=== PATIENT | female | born 1975 | race Caucasian/White ===

== ENCOUNTER 2016-02-27 14:08 | Inpatient (IN) | payer OTHER ==
[2016-02-27 14:33] VITALS: BMI 24.3
--- NOTE | 2016-02-27 14:38 | HP ---
COWS - Scale Resting Pulse: 0= [place] 80 or Below Sweatin=Flushed/Facial Moisture Restless Observation: 3= Extraneous Movement Pupil Size: 2= Moderately Dilated Bone or Joint Aches: 2= Severe Diffuse Aches Runny Nose/ Eye Tearin= Runny Nose/Eyes GI Upset > 30mins: 3= Vomiting/Diarrhea Tremor Observation: 2= Slight Tremor Visible Yawning Observation: 2= >3x During Session Anxiety or Irritability: 2=Irritable/Anxious Goose Flesh Skin: 0=Smooth Skin COWS Score: 20 Admission ROS BHS - HPI Chief Complaint: i need help to stop using heroin Allergies/Adverse Reactions: Allergies Allergy/AdvReac Type Severity Reaction Status Date / Time haloperidol [From Haldol] AdvReac stiffness Verified 02/27/16 14:33 haloperidol lactate AdvReac stiffness Verified 02/27/16 14:33 [From Haldol] History of Present Illness: this 40 years old female with heroin dependence withdrawal symptom,last detox to 01/24/16 htn non compliance insomnia no significant sobriety nicotine dependence Exam Limitations: No Limitations - Ebola screening Have you traveled outside of the country in the last 21 days: No Have you had contact with anyone from an Ebola affected area: No Have you been sick,other than usual withdrawal symptoms: No Do you have a fever: No - Review of Systems Constitutional: Chills, Diaphoresis, Loss of Appetite, Malaise, Night Sweats, Changes in sleep, Weakness, Unexplained wgt Loss EENT: reports: Tearing, Nose Congestion Respiratory: reports: No Symptoms reported, Other (s/p drainage of abscesss left ) Cardiac: reports: Palpitations GI: reports: Nausea, Vomiting, Abdominal cramping : reports: No Symptoms Reported Musculoskeletal: reports: Back Pain, Joint Pain, Muscle Pain Integumentary: reports: Dryness Neuro: reports: Headache, Tremors Endocrine: reports: No Symptoms Reported Hematology: reports: No Symptoms Reported Psychiatric: reports: Anxious, Depressed (insomnia) Patient History - Patient Medical History Hx Anemia: No Hx Asthma: No Hx Chronic Obstructive Pulmonary Disease (COPD): No Hx Cancer: No Hx Cardiac Disorders: No Hx Congestive Heart Failure: No Hx Hypertension: Yes (NON COMPLIANCE) Hx Hypercholesterolemia: No Hx Pacemaker: No HX Cerebrovascular Accident: No Hx Seizures: No Hx Dementia: No Hx Diabetes: No Hx Gastrointestinal Disorders: No Hx Liver Disease: Yes Hx Genitourinary Disorders: No Hx Sexually Transmitted Disorders: No Hx Renal Disease (ESRD): No Hx Thyroid Disease: No Hx Human Immunodeficiency Virus (HIV): No (LAST 11/13 NEGATIVE) Hx Hepatitis C: Yes (NOT TREATED) Hx Depression: Yes (ANXIETY,INSOMNIA) Hx Suicide Attempt: No Hx Bipolar Disorder: No Hx Schizophrenia: No Other Medical History: no suicidal,no homicidal - Patient Surgical History Past Surgical History: Yes Hx Neurologic Surgery: No Hx Cataract Extraction: No Hx Cardiac Surgery: No Hx Lung Surgery: No Hx Breast Surgery: No Hx Breast Biopsy: No Hx Abdominal Surgery: Yes (OPEN CHOLECYSTECTOMY IN 2008) Hx Appendectomy: No Hx Cholecystectomy: No Hx Genitourinary Surgery: No Hx Section: No Hx Orthopedic Surgery: No Other Surgical History: abscess incised a week ago,drainage of abscess of left lung in 2004 Anesthesia Reaction: No - PPD History Previous Implant?: Yes Documented Results: Positive w/o proof PPD to be Administered?: No - Reproductive History Patient is a Female of Child Bearing Age (11 -55 yrs old): Yes Last Menstrual Period: 12/19/15 Patient : No - Smoking Cessation Smoking history: Current every day smoker Have you smoked in the past 12 months: Yes Aproximately how many cigarettes per day: 20 Cigars Per Day: 0 Hx Chewing Tobacco Use: No Initiated information on smoking cessation: Yes 'Breaking Loose' booklet given: 02/27/16 - Substance & Tx. History Hx Alcohol Use: No Hx Substance Use: Yes Substance Use Type: Heroin Hx Substance Use Treatment: Yes (last 01/19/16 to 01/24/16) Family Disease History - Family Disease History Family Disease History: Other: Mother (HEROIN,AIDS,,) Admission Physical Exam S - Vital Signs Vital Signs: Vital Signs - 24 hr 02/27/16 14:31 Temperature 97.1 F L Pulse Rate 77 Respiratory 18 Rate Blood Pressure 169/104 - Physical General Appearance: Yes: Moderate Distress, Tremorous, Irritable, Sweating, Anxious HEENTM: Yes: Nasal Congestion Respiratory: Yes: Lungs Clear, Surgical Scar Neck: Yes: Within Normal Limits Breast: Yes: Within Normal Limits Cardiology: Yes: Within Normal Limits, Regular Rhythm, Regular Rate Abdominal: Yes: Within Normal Limits, Normal Bowel Sounds, Non Tender, Flat, Soft Genitourinary: Yes: Within Normal Limits Back: Yes: Muscle Spasm Musculoskeletal: Yes: Back pain, Muscle Pain Extremities: Yes: Tremors Neurological: Yes: chief engineer's helper II-XII NML intact, Fully Oriented, Alert, Motor Strength 5/5 Integumentary: Yes: Dry Lymphatic: Yes: Within Normal Limits - Diagnostic (1) Weight loss Current Visit: No Status: Acute (2) Anxiety and depression Current Visit: No Status: Chronic (3) Cocaine dependence, uncomplicated Current Visit: No Status: Chronic (4) Hepatitis C Current Visit: No Status: Chronic Qualifiers: Viral hepatitis chronicity: chronic Hepatic coma status: without hepatic coma Qualified Code(s): B18.2 - Chronic viral hepatitis C (5) Insomnia Current Visit: No Status: Chronic (6) Nicotine dependence Current Visit: No Status: Chronic Qualifiers: Nicotine product type: cigarettes Substance use status: uncomplicated Qualified Code(s): F17.210 - Nicotine dependence, cigarettes, uncomplicated (7) Opioid dependence with withdrawal Current Visit: No Status: Chronic (8) Abscess of lung Current Visit: Yes Status: Acute (9) History of cholecystectomy Current Visit: Yes Status: Acute Cleared for Admission [facility] - Detox or Rehab [facility] Level of Care: Medically Managed Detox Regimen/Protocol: Methadone [facility] Breath Alcohol Content Breath Alcohol Content: 0 Urine Pregancy Test - Result Urine Test Results: Negative- NO Line Present Urine Drug Screen - Results Drug Screen Negative: No Urine Drug Screen Results: KALYAN-Cocaine, OPI-Opiates
[2016-02-27] MEDS ORDERED: NICOTINE POLACRILEX 4 MG GUM BUC PRN (17:21)
[2016-02-27] MEDS ORDERED: ACETAMINOPHEN 325 MG TABLET (FP) PO PRN (17:21)
[2016-02-27] MEDS ORDERED: LOPERAMIDE HCL 2 MG CAPSULE PO PRN (17:21)
[2016-02-27] MEDS ORDERED: IBUPROFEN 400 MG TABLET (FP) PO PRN (17:21)
[2016-02-27] MEDS ORDERED: MAG HYDROX/AL HYDROX/SIMETH 30 ML UNIT-DOSE CUP PO PRN (17:21)
[2016-02-27] MEDS ORDERED: hydrOXYzine PAMOATE 25 MG CAPSULE (FP) PO PRN (17:21)
[2016-02-27] MEDS ORDERED: MAGNESIUM HYDROX 2400MG/30ML ORAL SUSPENSION 30 ML CUP PO PRN (17:21)
[2016-02-27] MEDS ORDERED: MENTHOL/PHENOL 1 EACH UD MM PRN (17:21)
[2016-02-27] MEDS ORDERED: guaiFENesin/D-METHORPHAN HB 10 ML UNIT-DOSE CUPS PO PRN (17:21)
[2016-02-27] MEDS ORDERED: P-EPHED 60MG/TRIPROLIDI 2.5MG TABLET PO PRN (17:21)
[2016-02-27] MEDS ORDERED: MAGNESIUM CITRATE 300 ML BOTTLE PO PRN (17:21)
[2016-02-27] MEDS ORDERED: METHADONE HCL 10 MG TABLET (FOR DETOX USE ONLY) PO ONE ×2 (17:30→23:00)
[2016-02-27] MEDS: diazePAM 5 MG TABLET PO PRN ×2 (17:42→22:28)
--- NOTE | 2016-02-27 22:02 | PN ---
BHS Progress Note Note: bp 159/105 patient received methadone 10 mg + valium 10 mg begin lisinopril 20 mg po bid + hctz 12.5 mg clonidine 0.1 mg po prn q6h continue detox
[2016-02-27] MEDS: THIAMINE HCL 100 MG TABLET (FP) PO SCH (22:28)
[2016-02-27] MEDS: diphenhydrAMINE HCL 50 MG CAPSULE PO PRN (22:29)
[2016-02-27 23:15] LABS: URINE APPEARANCE SLCLOUDY; URINE BILIRUBIN NEGATIVE (NEGATIVE); URINE COLOR YELLOW; URINE GLUCOSE (UA) NEGATIVE (NEGATIVE); URINE KETONE NEGATIVE (NEGATIVE); URINE LEUK ESTERASE NEGATIVE (NEGATIVE); URINE NITRITE POSITIVE (NEGATIVE); URINE PROTEIN NEGATIVE (NEGATIVE); URINE UROBILINOGEN NEGATIVE E.U./dl (0.2-1.0)
[2016-02-27 23:23] LABS: URINE BLOOD 2+ (NEGATIVE)
[2016-02-27 23:45] LABS: CALCIUM OXALATE CRYSTALS MANY /hpf (NONE SEEN); URINE BACTERIA RARE /hpf (NONE SEEN); URINE MUCUS MANY; URINE RBC 2 /hpf (0-3)
[2016-02-27] MEDS: LISINOPRIL 20 MG TABLET (FP) PO SCH (23:45)
[2016-02-27] MEDS: HYDROCHLOROTHIAZIDE 12.5 MG CAPSULE (FP) PO SCH (23:45)
[2016-02-28] MEDS: diazePAM 5 MG TABLET PO PRN ×5 (02:30→22:28)
[2016-02-28] MEDS: cloNIDine HCL 0.1 MG TABLET PO PRN ×2 (07:01→22:25)
[2016-02-28] MEDS ORDERED: METHADONE HCL 10 MG TABLET (FOR DETOX USE ONLY) PO ONE (10:00)
--- NOTE | 2016-02-28 10:02 | CONSULT ---
[facility] Psychiatric Consult - Data Date of interview: 02/28/16 Admission source: [facility] Identifying data: Readmission to [facility] for this 40 y/o female seeking detox treatment on for heroin and cocaine dependence.Patient is single without children,domiciled unemployed and supported on an [employer] fund. Substance Abuse History: - Smoking Cessation. Smoking history: Current every day smoker. Have you smoked in the past 12 months: Yes. Aproximately how many cigarettes per day: 20. Cigars Per Day: 0. Hx Chewing Tobacco Use: No. Initiated information on smoking cessation: Yes. 'Breaking Loose' booklet given : 02/27/16. - Substance & Tx. History. Hx Alcohol Use: No. Hx Substance Use: Yes. Substance Use Type: Heroin. Hx Substance Use Treatment: Yes (last to 01/24/16). Confirmed by patient. Medical History: Significant for a history of hepatitis C,hypertension and cholecystectomy (2008).Noted history of x 1. Psychiatric History: Two psychiatric hospitalizations in her lifetime ([facility] and [facility] in [place]).First psychiatric breakdown :age 13.Diagnosed with MDD and Anxiety Disorder.Ms Lowery reports maintenance treatment with seroquel 150 mg po hs.Totally lost to follow up.Patient reports that she has no affiliation with any OPD care providers at this time." I spend my time running in the streets using drugs." Scripts for seroquel are obtained from admissions to [facility].Noted history of suicide attempts between age [age] via self-mutilation and overdose with "pills".Ms Lowery informs that she took seroquel a week ago and requests continuity of that dose in this hospital course. Physical/Sexual Abuse/Trauma History: Patient denies. Additional Comment: Urine Drug Screen Results: KALYAN-Cocaine, OPI-Opiates.Noted. Mental Status Exam - Mental Status Exam Alert and Oriented to: Time, Place, Person Cognitive Function: Good Patient Appearance: Well Groomed Mood: Withdrawn, Hopeful Affect: Appropriate, Normal Range Patient Behavior: Fatigued, Appropriate, Cooperative Speech Pattern: Clear Voice Loudness: Normal Thought Process: Goal Oriented Thought Disorder: Not Present Hallucinations: Denies Suicidal Ideation: Denies Homicidal Ideation: Denies Insight/Judgement: Poor Sleep: Poorly, Difficulty falling asleep Appetite: Good Muscle strength/Tone: Normal Gait/Station: Normal Psychiatric Findings - Problem List ([place] 1, 2,3) (1) Opioid dependence with withdrawal Current Visit: Yes Status: Acute (2) Cocaine dependence, uncomplicated Current Visit: Yes Status: Acute (3) Nicotine dependence Current Visit: Yes Status: Acute Qualifiers: Nicotine product type: cigarettes Substance use status: uncomplicated Qualified Code(s): F17.210 - Nicotine dependence, cigarettes, uncomplicated (4) Substance induced mood disorder Current Visit: Yes Status: Acute (5) Substance-induced anxiety disorder Current Visit: Yes Status: Suspected (6) History of cholecystectomy Current Visit: No Status: Chronic (7) HTN (hypertension) Current Visit: Yes Status: Chronic Qualifiers: Hypertension type: essential hypertension Qualified Code(s): I10 - Essential (primary) hypertension (8) Hepatitis C Current Visit: Yes Status: Chronic Qualifiers: Viral hepatitis chronicity: chronic Hepatic coma status: without hepatic coma Qualified Code(s): B18.2 - Chronic viral hepatitis C (9) Weight loss Current Visit: Yes Status: Chronic (10) Insomnia Current Visit: Yes Status: Chronic - Initial Treatment Plan Initial Treatment Plan: Psychoeducation.Detoxification.Seroquel 150 mg po hs.Side effects/benefits discussed with patient.Patient agrees with plan.Observation.
[2016-02-28 10:31] LABS: MCH 24.6 pg (25.7-33.7); MCHC 32.2 g/dl (32.0-36.0); MEAN CELL VOLUME 76.5 fl (80-96); MEAN PLT VOLUME 9.6 fl (7.5-11.1); PLATELET COUNT 260 K/MM3 (134-434); RDW 16.5 % (11.6-15.6); WHITE BLOOD COUNT 6.8 K/mm3 (4.0-10.0)
[2016-02-28 10:45] LABS: ALBUMIN 3.8 g/dl (3.4-5.0); ALK PHOS 65 U/L (45-117); ANION GAP 7 (8-16); BILIRUBIN,TOTAL 0.4 mg/dL (0.2-1.0); CALCIUM 8.9 mg/dL (8.5-10.1); CO2 25 mmol/L (21-32); CREATININE 0.8 mg/dL (0.55-1.02); GLUCOSE,RANDOM 101 mg/dL (74-106); SGOT/AST 29 U/L (15-37); SGPT/ALT 47 U/L (12-78)
[2016-02-28] MEDS: NICOTINE 21 MG/24 HOURS TOPICAL PATCH TD SCH (10:59)
[2016-02-28] MEDS: PRENATAL VITAMINS W/ FOLIC ACID TABLET (FP) PO SCH (11:02)
[2016-02-28] MEDS: HYDROCHLOROTHIAZIDE 12.5 MG CAPSULE (FP) PO SCH (11:02)
[2016-02-28] MEDS: LISINOPRIL 20 MG TABLET (FP) PO SCH ×2 (11:02→22:26)
[2016-02-28] MEDS: CYCLOBENZAPRINE HCL 10 MG TABLET (FP) PO PRN ×2 (11:08→22:25)
--- NOTE | 2016-02-28 13:36 | PN ---
BHS COWS - Scale Resting Pulse: 1= [place] 81-100 Sweatin= Chills/Flushing Restless Observation: 3= Extraneous Movement Pupil Size: 1= Pupils >than Normal Bone or Joint Aches: 2= Severe Diffuse Aches Runny Nose/ Eye Tearin= Runny Nose/Eyes GI Upset > 30mins: 2= Nausea/Diarrhea Tremor Observation of Outstretched Hands: 2= Slight Tremor Visible Yawning Observation: 1= 1-2x During Session Anxiety or Irritability: 2=Irritable/Anxious Goose Flesh Skin: 0=Smooth Skin COWS Score: 17 BHS Progress Note (SOAP) Subjective: alert,irritable,anxious,tremor,pain in the body and back,interrupted sleep Objective: 02/28/16 13:34 Vital Signs Temperature 98.2 F 02/28/16 10:00 Pulse Rate 83 02/28/16 10:00 Respiratory Rate 16 02/28/16 10:00 Blood Pressure 148/110 02/28/16 10:00 O2 Sat by Pulse Oximetry (%) Laboratory Last Values WBC 6.8 K/mm3 (4.0-10.0) 02/28/16 07:50 RBC 4.64 M/mm3 (3.60-5.2) 02/28/16 07:50 Hgb 11.4 GM/dL (10.7-15.3) 02/28/16 07:50 Hct 35.4 % (32.4-45.2) 02/28/16 07:50 MCV 76.5 fl (80-96) L 02/28/16 07:50 MCHC 32.2 g/dl (32.0-36.0) 02/28/16 07:50 RDW 16.5 % (11.6-15.6) H 02/28/16 07:50 Plt Count 260 K/MM3 (134-434) 02/28/16 07:50 MPV 9.6 fl (7.5-11.1) 02/28/16 07:50 Sodium 136 mmol/L (136-145) 02/28/16 07:50 Potassium 4.0 mmol/L (3.5-5.1) 02/28/16 07:50 Chloride 104 mmol/L (98-107) 02/28/16 07:50 Carbon Dioxide 25 mmol/L (21-32) 02/28/16 07:50 Anion Gap 7 (8-16) L 02/28/16 07:50 BUN 12 mg/dL (7-18) 02/28/16 07:50 Creatinine 0.8 mg/dL (0.55-1.02) 02/28/16 07:50 Creat Clearance w eGFR > 60 (>60) 02/28/16 07:50 Random Glucose 101 mg/dL (74-106) 02/28/16 07:50 Calcium 8.9 mg/dL (8.5-10.1) 02/28/16 07:50 Total Bilirubin 0.4 mg/dL (0.2-1.0) D 02/28/16 07:50 AST 29 U/L (15-37) D 02/28/16 07:50 ALT 47 U/L (12-78) D 02/28/16 07:50 Alkaline Phosphatase 65 U/L (45-117) 02/28/16 07:50 Total Protein 8.0 g/dl (6.4-8.2) 02/28/16 07:50 Albumin 3.8 g/dl (3.4-5.0) 02/28/16 07:50 Urine Color Yellow 02/27/16 19:53 Urine Appearance Slcloudy 02/27/16 19:53 Urine pH 6.0 (5.0-8.0) D 02/27/16 19:53 Ur Specific [place] 1.020 (1.001-1.035) 02/27/16 19:53 Urine Protein Negative (NEGATIVE) 02/27/16 19:53 Urine Glucose (UA) Negative (NEGATIVE) 02/27/16 19:53 Urine Ketones Negative (NEGATIVE) 02/27/16 19:53 Urine Blood 2+ (NEGATIVE) H 02/27/16 19:53 Urine Nitrite Positive (NEGATIVE) 02/27/16 19:53 Urine Bilirubin Negative (NEGATIVE) 02/27/16 19:53 Urine Urobilinogen Negative E.U./dl (0.2-1.0) 02/27/16 19:53 Ur Leukocyte Esterase Negative (NEGATIVE) 02/27/16 19:53 Urine RBC 2 /hpf (0-3) 02/27/16 19:53 Urine WBC None /hpf (3-5) 02/27/16 19:53 Ur Epithelial Cells Rare /hpf (FEW) 02/27/16 19:53 Calcium Oxalate Crystal Many /hpf (NONE SEEN) 02/27/16 19:53 Urine Bacteria Rare /hpf (NONE SEEN) 02/27/16 19:53 Urine Mucus Many 02/27/16 19:53 RPR Titer Nonreactive (NONREACTIVE) 02/28/16 07:50 Assessment: 02/28/16 13:35 withdrawal symptom Plan: continue detox
[2016-02-28] MEDS ORDERED: QUEtiapine FUMARATE 100 MG TABLET (FP) PO SCH (22:00)
[2016-02-28] MEDS: diphenhydrAMINE HCL 50 MG CAPSULE PO PRN (22:24)
[2016-02-28] MEDS: THIAMINE HCL 100 MG TABLET (FP) PO SCH (22:26)
[2016-02-28] MEDS: QUEtiapine FUMARATE 50 MG TABLET PO SCH (22:26)
[2016-02-29] MEDS ORDERED: METHADONE HCL 5 MG TABLET (FOR DETOX USE ONLY) PO ONE (10:00)
[2016-02-29] MEDS: HYDROCHLOROTHIAZIDE 12.5 MG CAPSULE (FP) PO SCH (10:15)
[2016-02-29] MEDS: CYCLOBENZAPRINE HCL 10 MG TABLET (FP) PO PRN ×2 (10:15→22:16)
[2016-02-29] MEDS: cloNIDine HCL 0.1 MG TABLET PO PRN ×2 (10:15→22:15)
[2016-02-29] MEDS: diazePAM 5 MG TABLET PO PRN ×3 (10:16→19:05)
[2016-02-29] MEDS: NICOTINE 21 MG/24 HOURS TOPICAL PATCH TD SCH (10:16)
[2016-02-29] MEDS: PRENATAL VITAMINS W/ FOLIC ACID TABLET (FP) PO SCH (10:16)
[2016-02-29] MEDS: LISINOPRIL 20 MG TABLET (FP) PO SCH ×2 (10:16→22:16)
--- NOTE | 2016-02-29 16:47 | PN ---
BHS COWS - Scale Resting Pulse: 0= [place] 80 or Below Sweatin=Flushed/Facial Moisture Restless Observation: 1= Difficult to Sit Still Pupil Size: 0= Normal to Room Light Bone or Joint Aches: 2= Severe Diffuse Aches Runny Nose/ Eye Tearin= Runny Nose/Eyes GI Upset > 30mins: 2= Nausea/Diarrhea Tremor Observation of Outstretched Hands: 2= Slight Tremor Visible Yawning Observation: 1= 1-2x During Session Anxiety or Irritability: 2=Irritable/Anxious Goose Flesh Skin: 0=Smooth Skin COWS Score: 14 BHS Progress Note (SOAP) Subjective: ANXIETY,SWEATING,INTERRUPTED SLEEP,RESTLESS. Objective: 02/29/16 16:45 Vital Signs - 8 hr 02/29/16 02/29/16 10:00 13:54 Temperature 97.7 F 98.2 F Pulse Rate 71 72 Respiratory 18 18 Rate Blood Pressure 128/85 150/81 Laboratory Tests 02/27/16 02/28/16 02/28/16 19:53 07:50 07:50 WBC 6.8 RBC 4.64 Hgb 11.4 Hct 35.4 MCV 76.5 L MCHC 32.2 RDW 16.5 H Plt Count 260 MPV 9.6 Sodium 136 Potassium 4.0 Chloride 104 Carbon Dioxide 25 Anion Gap 7 L BUN 12 Creatinine 0.8 Creat Clearance w eGFR > 60 Random Glucose 101 Calcium 8.9 Total Bilirubin 0.4 D AST 29 D ALT 47 D Alkaline Phosphatase 65 Total Protein 8.0 Albumin 3.8 Urine Color Yellow Urine Appearance Slcloudy Urine pH 6.0 D Ur Specific [place] 1.020 Urine Protein Negative Urine Glucose (UA) Negative Urine Ketones Negative Urine Blood 2+ H Urine Nitrite Positive Urine Bilirubin Negative Urine Urobilinogen Negative Ur Leukocyte Esterase Negative Urine RBC 2 Urine WBC None Ur Epithelial Cells Rare Calcium Oxalate Crystal Many Urine Bacteria Rare Urine Mucus Many RPR Titer 02/28/16 07:50 WBC RBC Hgb Hct MCV MCHC RDW Plt Count MPV Sodium Potassium Chloride Carbon Dioxide Anion Gap BUN Creatinine Creat Clearance w eGFR Random Glucose Calcium Total Bilirubin AST ALT Alkaline Phosphatase Total Protein Albumin Urine Color Urine Appearance Urine pH Ur Specific [place] Urine Protein Urine Glucose (UA) Urine Ketones Urine Blood Urine Nitrite Urine Bilirubin Urine Urobilinogen Ur Leukocyte Esterase Urine RBC Urine WBC Ur Epithelial Cells Calcium Oxalate Crystal Urine Bacteria Urine Mucus RPR Titer Nonreactive U/A + FOR NITRITE,U/C&S Assessment: 02/29/16 16:46 WITHDRAWAL SX. Plan: CONTINUE DETOX
[2016-02-29] MEDS: QUEtiapine FUMARATE 50 MG TABLET PO SCH (22:16)
[2016-02-29] MEDS: diphenhydrAMINE HCL 50 MG CAPSULE PO PRN (22:16)
[2016-02-29] MEDS: THIAMINE HCL 100 MG TABLET (FP) PO SCH (22:17)
[2016-03-01] MEDS ORDERED: METHADONE HCL 5 MG TABLET (FOR DETOX USE ONLY) PO ONE (10:00)
[2016-03-01] MEDS: PRENATAL VITAMINS W/ FOLIC ACID TABLET (FP) PO SCH (10:31)
[2016-03-01] MEDS: LISINOPRIL 20 MG TABLET (FP) PO SCH ×2 (10:32→22:13)
[2016-03-01] MEDS: HYDROCHLOROTHIAZIDE 12.5 MG CAPSULE (FP) PO SCH (10:32)
[2016-03-01] MEDS: NICOTINE 21 MG/24 HOURS TOPICAL PATCH TD SCH (10:32)
[2016-03-01] MEDS: CYCLOBENZAPRINE HCL 10 MG TABLET (FP) PO PRN ×2 (10:36→22:12)
[2016-03-01] MEDS: diazePAM 5 MG TABLET PO PRN ×2 (10:36→17:22)
--- NOTE | 2016-03-01 11:17 | PN ---
BHS Progress Note (SOAP) Subjective: ALERT,IRRITABLE,ANXIOUS,INTERRUPTED SLEEP,PAIN IN THE BODY Objective: 03/01/16 11:16 Vital Signs Temperature 97.9 F 03/01/16 10:23 Pulse Rate 77 03/01/16 10:23 Respiratory Rate 16 03/01/16 10:23 Blood Pressure 123/84 03/01/16 10:23 O2 Sat by Pulse Oximetry (%) Assessment: 03/01/16 11:16 WITHDRAWAL SYMPTOM Plan: CONTINUE DETOX
[2016-03-01] MEDS: diphenhydrAMINE HCL 50 MG CAPSULE PO PRN (22:12)
[2016-03-01] MEDS: QUEtiapine FUMARATE 50 MG TABLET PO SCH (22:13)
[2016-03-01] MEDS: THIAMINE HCL 100 MG TABLET (FP) PO SCH (22:13)
[2016-03-02] MEDS ORDERED: METHADONE HCL 10 MG TABLET (FOR DETOX USE ONLY) PO ONE (10:00)
[2016-03-02] MEDS: CYCLOBENZAPRINE HCL 10 MG TABLET (FP) PO PRN ×2 (10:12→22:45)
[2016-03-02] MEDS: HYDROCHLOROTHIAZIDE 12.5 MG CAPSULE (FP) PO SCH (10:12)
[2016-03-02] MEDS: LISINOPRIL 20 MG TABLET (FP) PO SCH ×2 (10:12→22:08)
[2016-03-02] MEDS: cloNIDine HCL 0.1 MG TABLET PO PRN (10:12)
[2016-03-02] MEDS: PRENATAL VITAMINS W/ FOLIC ACID TABLET (FP) PO SCH ×2 (10:12→10:15)
[2016-03-02] MEDS: NICOTINE 21 MG/24 HOURS TOPICAL PATCH TD SCH (10:13)
--- NOTE | 2016-03-02 10:20 | PN ---
BHS Progress Note (SOAP) Subjective: chills anxious Objective: 03/02/16 10:19 Vital Signs Temperature 98.9 F 03/02/16 06:52 Pulse Rate 65 03/02/16 06:52 Respiratory Rate 16 03/02/16 06:52 Blood Pressure 142/87 03/02/16 06:52 O2 Sat by Pulse Oximetry (%) awake/alert ambulating no acute distress Assessment: 03/02/16 10:19 withdrawal sx Plan: continue detox increase fluids d/c in am
[2016-03-02] MEDS: THIAMINE HCL 100 MG TABLET (FP) PO SCH (22:08)
[2016-03-02] MEDS: QUEtiapine FUMARATE 50 MG TABLET PO SCH (22:08)
[2016-03-02] MEDS: diphenhydrAMINE HCL 50 MG CAPSULE PO PRN (22:10)
[2016-03-03] MEDS ORDERED: METHADONE HCL 5 MG TABLET (FOR DETOX USE ONLY) PO ONE (06:00)
[2016-03-03] MEDS: HYDROCHLOROTHIAZIDE 12.5 MG CAPSULE (FP) PO SCH (09:09)
[2016-03-03] MEDS: CYCLOBENZAPRINE HCL 10 MG TABLET (FP) PO PRN (09:09)
[2016-03-03] MEDS: LISINOPRIL 20 MG TABLET (FP) PO SCH (09:09)
[2016-03-03] MEDS: PRENATAL VITAMINS W/ FOLIC ACID TABLET (FP) PO SCH (09:10)
--- NOTE | 2016-03-03 09:12 | DS ---
[facility] Detox Discharge Summary Admission Date: 02/27/16 Discharge Date: 03/03/16 - History Present History: Alcohol Dependence, Cocaine Dependence, Opioid Dependence - Physical Exam Results Vital Signs: Vital Signs Temperature 97.2 F L 03/03/16 07:42 Pulse Rate 69 03/03/16 07:42 Respiratory Rate 16 03/03/16 07:42 Blood Pressure 133/90 03/03/16 07:42 O2 Sat by Pulse Oximetry (%) - Treatment Hospital Course: Detox Protocol Followed, Detoxed Safely, Responded well, Discharged Condition Good - Medication Discharge Medications: Ambulatory Orders Quetiapine Fumarate [Seroquel] 100 tab PO HS #30 tablet 12/14/15 Hydrochlorothiazide [Hctz -] 12.5 cap PO DAILY #30 cap 01/24/16 Lisinopril [Prinivil] 20 mg PO BID #60 tablet 01/24/16 Quetiapine Fumarate [Seroquel] 100 mg PO HS #30 tablet 02/28/16 - Diagnosis (1) Cocaine dependence, uncomplicated Current Visit: Yes Status: Chronic (2) Nicotine dependence Current Visit: Yes Status: Chronic Qualifiers: Nicotine product type: cigarettes Substance use status: uncomplicated Qualified Code(s): F17.210 - Nicotine dependence, cigarettes, uncomplicated (3) Opioid dependence with withdrawal Current Visit: Yes Status: Chronic (4) HTN (hypertension) Current Visit: Yes Status: Chronic Qualifiers: Hypertension type: essential hypertension Qualified Code(s): I10 - Essential (primary) hypertension (5) Hepatitis C Current Visit: Yes Status: Chronic Qualifiers: Viral hepatitis chronicity: chronic Hepatic coma status: without hepatic coma Qualified Code(s): B18.2 - Chronic viral hepatitis C (6) Open wound of buttock, uncomplicated Current Visit: Yes Status: Acute Qualifiers: Encounter type: initial encounter Laterality: left Qualified Code(s): S31.829A - Unspecified open wound of left buttock, initial encounter - AMA Did Patient Leave Against Medical Advice: No
[2016-03-03 11:24] VITALS: BP 145/98; PULSE 79; TEMP 97.9
== END 2016-03-03 12:26 | disposition other institution (70) | DRG 773 ==
LOC: YASAS 14:08 → Y6N 14:55
PROVIDERS: ADMIT Internal Medicine Addiction Medicine; ATTEND Internal Medicine Addiction Medicine
PROC: HZ2ZZZZ Detoxification Services for Substance Abuse Treatment (ICD-10-PCS; principal; 2016-02-27)
DX: F11.23 Opioid dependence with withdrawal (principal); F14.20 Cocaine dependence, uncomplicated; F17.210 Nicotine dependence, cigarettes, uncomplicated; F19.282 Other psychoactive substance dependence with psychoactive substance-induced sleep disorder; F19.280 Other psychoactive substance dependence with psychoactive substance-induced anxiety disorder; F41.8 Other specified anxiety disorders; I10 Essential (primary) hypertension; B18.2 Chronic viral hepatitis C; G47.00 Insomnia, unspecified; Z48.01 Encounter for change or removal of surgical wound dressing; K76.9 Liver disease, unspecified; Z90.49 Acquired absence of other specified parts of digestive tract; Z87.898 Personal history of other specified conditions; Z91.14 Patient's other noncompliance with medication regimen; Z87.09 Personal history of other diseases of the respiratory system
CPT/HCPCS: 36415; 80053; 81003; 81015; 85027; 86593; 87086; 87186; 93005; 93010

== ENCOUNTER 2016-03-03 13:07 | Inpatient (IN) | payer OTHER ==
[2016-03-03 13:53] VITALS: BMI 25.7
[2016-03-03] MEDS ORDERED: MAGNESIUM HYDROX 2400MG/30ML ORAL SUSPENSION 30 ML CUP PO PRN (15:00)
[2016-03-03] MEDS ORDERED: guaiFENesin/D-METHORPHAN HB 10 ML UNIT-DOSE CUPS PO PRN (15:00)
[2016-03-03] MEDS ORDERED: P-EPHED 60MG/TRIPROLIDI 2.5MG TABLET PO PRN (15:00)
[2016-03-03] MEDS ORDERED: ACETAMINOPHEN 325 MG TABLET (FP) PO PRN (15:00)
[2016-03-03] MEDS ORDERED: NICOTINE POLACRILEX 2 MG GUM BUC PRN (15:00)
[2016-03-03] MEDS ORDERED: MAGNESIUM CITRATE 300 ML BOTTLE PO PRN (15:00)
[2016-03-03] MEDS ORDERED: LOPERAMIDE HCL 2 MG CAPSULE PO PRN (15:00)
[2016-03-03] MEDS ORDERED: MAG HYDROX/AL HYDROX/SIMETH 30 ML UNIT-DOSE CUP PO PRN (15:00)
[2016-03-03] MEDS ORDERED: MENTHOL/PHENOL 1 EACH UD MM PRN (15:00)
--- NOTE | 2016-03-03 15:03 | HP ---
[facility] Rehab Assess/Revision - Admission History Admitted to Rehab from: [facility] [place] - Vital signs Vital Signs: Vital Signs Period Temp Pulse Resp BP Sys/Joy Pulse Ox Last 24 Hr 97.9 F 68 18 119/80 - Findings Detox History & Physical reviewed: Yes Concur with findings: Yes
--- NOTE | 2016-03-03 15:30 | HP ---
Psychiatrist Admission - Data Date of interview: 03/03/16 Admission source: [address] [place] [address] Identifying data: This is the first admission to [address] [place] [address] for this 40 yo single female,resides alone,supported by family. Medical History: Significant for HTN,Hep C,H/O Lung abscess. Psychiatric History: Reports long and extensive psychiatric history ,started back at 13 years old when she addressed depression,anxiety,mood instability, drug use.Patient has been diagnosed with MDD.Then she has been dx with Bipolar disorder and Bordeline Personality in 2009 while being admitted to [facility] due to self mutilation behavior (drug use,cutting her wrists).Patient reports 2 more psychiatric hospitalizations:[facility] in .No regular psychiatric care reported.Patient has been treated with different antipsychotics including Seroquel,Haldol,Trazodone,obtaining scripts from local ER.Patient restarted Seroquel 100 mg po hs while in detox unit last week,prescribed by .Reports history of suicidality (self mutilation by cutting her wrists,DOD at [age] years old).Currently she is still complaining of anxiety,insomnia,depressed mood and withdrawing from heroin. Physical/Sexual Abuse/Trauma History: Patient is not willing to discuss this issue at present. Vital Signs: Vital Signs - 24 hr 03/03/16 13:50 Temperature 97.9 F Pulse Rate 68 Respiratory 18 Rate Blood Pressure 119/80 Allergies/Adverse Reactions: Allergies Allergy/AdvReac Type Severity Reaction Status Date / Time haloperidol [From Haldol] AdvReac stiffness Verified 02/27/16 14:33 haloperidol lactate AdvReac stiffness Verified 03/03/16 14:29 [From Haldol] Date of last physical exam: 02/27/16 Concur with the findings of this exam: Yes - Substance Abuse/Tx History Hx Alcohol Use: Yes (drinking on and off) Hx Substance Use: Yes (heroin since 17 yo(IV),cocaine since 25 yo,Xanax since 28 yo) Substance Use Type: Cocaine, Heroin Hx Substance Use Treatment: Yes (this is her first penitentiary treatment) - Admission Criteria Previous failed treatment: Yes Poor recovery environment: Yes Comorbidities: Yes Lacks judgement: Yes Mental Status Exam - Mental Status Exam Alert and Oriented to: Time (multiple scars on wrists,arms,body including buttocks from iv heroin use), Place, Person Cognitive Function: Grossly Intact Patient Appearance: Unkempt Mood: Depressed, Sad, Anxious, Irritable Affect: Labile Patient Behavior: Restless Speech Pattern: Clear Voice Loudness: Normal Thought Process: Goal Oriented Thought Disorder: Not Present Hallucinations: Denies Suicidal Ideation: Denies Homicidal Ideation: Denies Insight/Judgement: Fair Sleep: Difficulty falling asleep Appetite: Fair Muscle strength/Tone: Normal Gait/Station: Normal Psychiatric Findings - Problem List ([place] 1, 2,3) (1) Abscess of lung Current Visit: Yes Status: Resolved (2) Open wound of buttock, uncomplicated Current Visit: Yes Status: Inactive Qualifiers: (3) Substance induced mood disorder Current Visit: Yes Status: Chronic (4) Cocaine dependence, uncomplicated Current Visit: Yes Status: Chronic (5) HTN (hypertension) Current Visit: Yes Status: Chronic Qualifiers: (6) Hepatitis C Current Visit: Yes Status: Chronic Qualifiers: (7) History of cholecystectomy Current Visit: Yes Status: Chronic - Initial Treatment Plan Initial Treatment Plan: Seroquel 100 mg po hs will be adjusted to 200 mg po hs, add Neurontin 300 mg po tid.Will monitor progress.
[2016-03-03] MEDS: hydrOXYzine PAMOATE 50 MG CAPSULE (FP) PO PRN ×2 (15:52→20:17)
[2016-03-03] MEDS: GABAPENTIN 300 MG CAPSULE (FP) PO SCH ×2 (15:52→21:12)
[2016-03-03] MEDS: LISINOPRIL 20 MG TABLET (FP) PO SCH (21:12)
[2016-03-03] MEDS: QUEtiapine FUMARATE 200 MG TABLET PO SCH (21:12)
[2016-03-03] MEDS: THIAMINE HCL 100 MG TABLET (FP) PO SCH (21:12)
[2016-03-03] MEDS: diphenhydrAMINE HCL 50 MG CAPSULE PO PRN (22:39)
[2016-03-04] MEDS: GABAPENTIN 300 MG CAPSULE (FP) PO SCH ×3 (06:27→21:27)
[2016-03-04] MEDS: hydrOXYzine PAMOATE 50 MG CAPSULE (FP) PO PRN ×3 (06:28→15:23)
[2016-03-04] MEDS: LISINOPRIL 20 MG TABLET (FP) PO SCH ×3 (06:40→21:27)
[2016-03-04] MEDS ORDERED: HYDROCHLOROTHIAZIDE 12.5 MG CAPSULE (FP) PO SCH (10:00)
[2016-03-04] MEDS: PRENATAL VITAMINS W/ FOLIC ACID TABLET (FP) PO SCH (10:26)
[2016-03-04] MEDS: CYCLOBENZAPRINE HCL 10 MG TABLET (FP) PO PRN (10:32)
[2016-03-04] MEDS: NICOTINE 21 MG/24 HOURS TOPICAL PATCH TD SCH (10:36)
[2016-03-04] MEDS: THIAMINE HCL 100 MG TABLET (FP) PO SCH (21:27)
[2016-03-04] MEDS: diphenhydrAMINE HCL 50 MG CAPSULE PO PRN ×2 (21:27→22:54)
[2016-03-04] MEDS: QUEtiapine FUMARATE 200 MG TABLET PO SCH (21:27)
[2016-03-05] MEDS: hydrOXYzine PAMOATE 50 MG CAPSULE (FP) PO PRN ×4 (00:35→23:55)
[2016-03-05] MEDS: CYCLOBENZAPRINE HCL 10 MG TABLET (FP) PO PRN ×3 (00:35→21:19)
[2016-03-05] MEDS: GABAPENTIN 300 MG CAPSULE (FP) PO SCH ×2 (06:28→14:11)
[2016-03-05] MEDS: TRIAMTERENE AND HCTZ - 37.5 MG/25 MG CAPSULE PO SCH (10:05)
[2016-03-05] MEDS: NICOTINE 21 MG/24 HOURS TOPICAL PATCH TD SCH (10:06)
[2016-03-05] MEDS: LISINOPRIL 20 MG TABLET (FP) PO SCH ×2 (10:07→21:19)
[2016-03-05] MEDS: PRENATAL VITAMINS W/ FOLIC ACID TABLET (FP) PO SCH (10:07)
--- NOTE | 2016-03-05 15:11 | PN ---
Psychiatric Progress Note Vital Signs: Vital Signs Period Temp Pulse Resp BP Sys/Joy Pulse Ox Last 24 Hr 97.8 F 66-87 16-16 143-152/88-93 Date of Session: 03/05/16 Chief Complaint:: Sleep is still a problem as well as anxiety. HPI: Patient addressed Cocaine dependence comorbid with Substance induced mood disorder. ROS: Hep C,HTN,H/O Cholecystectomy. Current Medications: Active Medications Generic Name Dose Route Start Last Admin Trade Name Freq PRN Reason Stop Dose Admin Acetaminophen 650 mg 03/03/16 15:00 Tylenol - PO Q4H PRN FEVER OR PAIN Al Hydroxide/Mg Hydroxide 30 ml 03/03/16 15:00 Mylanta Oral Suspension - PO Q6H PRN DYSPEPSIA Cyclobenzaprine HCl 10 mg 03/03/16 15:02 03/05/16 10:09 Flexeril - PO 10 mg TID PRN Administration MUSCLE SPASMS Diphenhydramine HCl 50 mg 03/03/16 15:00 03/04/16 22:54 Benadryl - PO 50 mg HSMR1 PRN Administration FOR ITCHING Eucalyptus/Menthol/Phenol/Sorbitol 1 each 03/03/16 15:00 Cepastat Lozenge - MM Q4H PRN SORE THROAT Gabapentin 400 mg 03/05/16 22:00 Neurontin - PO TID JUSTIN Guaifenesin 10 ml 03/03/16 15:00 Robitussin Dm - PO Q6H PRN COUGH Hydroxyzine Pamoate 50 mg 03/03/16 15:40 03/05/16 11:15 Vistaril - PO 50 mg Q4H PRN Administration ANXIETY Ibuprofen 400 mg 03/03/16 15:00 Motrin - PO Q6H PRN PAIN Lisinopril 20 mg 03/03/16 22:00 03/05/16 10:07 Prinivil PO 20 mg BID JUSTIN Administration Loperamide HCl 4 mg 03/03/16 15:00 Imodium - PO Q6H PRN DIARRHEA Magnesium Hydroxide 30 ml 03/03/16 15:00 Milk Of Magnesia - PO DAILY PRN CONSTIPATION Nicotine 21 mg 03/04/16 10:00 03/05/16 10:06 Nicoderm Patch - TD 21 mg DAILY JUSTIN Administration Nicotine Polacrilex 2 mg 03/03/16 15:00 Nicorette Gum - BUC Q2H PRN NICOTINE REPLACEMENT RX Multivit/Folic Acid/Iron 1 tab 03/04/16 10:00 03/05/16 10:07 Vitamins (Sjr) - PO 1 tab DAILY JUSTIN Administration Pseudoephedrine/Triprolidine 1 combo 03/03/16 15:00 Actifed - PO TID PRN NASAL CONGESTION Quetiapine Fumarate 300 mg 03/05/16 22:00 Seroquel - PO HS JUSTIN Thiamine HCl 100 mg 03/03/16 22:00 03/04/16 21:27 Vitamin B1 - PO 100 mg HS JUSTIN Administration Triamterene/HCTZ 1 cap 03/05/16 10:00 03/05/16 10:05 Dyazide 25/37.5mg PO 1 cap DAILY JUSTIN Administration Current Side Effect: No Lab tests ordered: No Lab tests reviewed: Yes Provider note:: Patient was evaluated today.Chart was revuewed and medications management has been discussed with the patient .Properties of Neurontin and Seroquel has been discussed with the patient including side effects and benefits along with dose adjustment. Seroquel 200 mg po hs will be adjusted to 300 mg po hs,Neurontin 300 mg po tid will be adjusted to 400 mg po tid. Supportive therapy has been provided. Total face to face time:: 35 Mental Status Exam - Mental Status Exam Alert and Oriented to: Time, Place, Person Cognitive Function: Grossly Intact Patient Appearance: Unkempt Mood: Sad, Nervous, Anxious Affect: Labile Patient Behavior: Restless, Fatigued, Distractible, Cooperative Speech Pattern: Clear Thought Process: Goal Oriented Thought Disorder: Not Present Hallucinations: Denies Suicidal Ideation: Denies Homicidal Ideation: Denies Insight/Judgement: Fair Sleep: Difficulty falling asleep Appetite: Good Muscle strength/Tone: Normal Gait/Station: Normal Psychiatric Treatment Plan - Problem List (2) Open wound of buttock, uncomplicated Qualifiers: (5) HTN (hypertension) Qualifiers: (6) Hepatitis C Qualifiers:
[2016-03-05] MEDS: GABAPENTIN 400 MG CAPSULE (FP) PO SCH (21:19)
[2016-03-05] MEDS: diphenhydrAMINE HCL 50 MG CAPSULE PO PRN (21:19)
[2016-03-05] MEDS: THIAMINE HCL 100 MG TABLET (FP) PO SCH (21:19)
[2016-03-05] MEDS: QUEtiapine FUMARATE 300 MG TABLET PO SCH (21:19)
[2016-03-06] MEDS: diphenhydrAMINE HCL 50 MG CAPSULE PO PRN ×2 (00:48→21:28)
[2016-03-06] MEDS: GABAPENTIN 400 MG CAPSULE (FP) PO SCH ×3 (06:58→21:29)
[2016-03-06] MEDS: PRENATAL VITAMINS W/ FOLIC ACID TABLET (FP) PO SCH (10:05)
[2016-03-06] MEDS: TRIAMTERENE AND HCTZ - 37.5 MG/25 MG CAPSULE PO SCH (10:05)
[2016-03-06] MEDS: LISINOPRIL 20 MG TABLET (FP) PO SCH ×2 (10:05→21:28)
[2016-03-06] MEDS: NICOTINE 21 MG/24 HOURS TOPICAL PATCH TD SCH (10:07)
[2016-03-06] MEDS: hydrOXYzine PAMOATE 50 MG CAPSULE (FP) PO PRN ×3 (10:08→23:34)
[2016-03-06] MEDS: CYCLOBENZAPRINE HCL 10 MG TABLET (FP) PO PRN ×2 (10:08→19:18)
[2016-03-06] MEDS: IBUPROFEN 400 MG TABLET (FP) PO PRN (19:18)
[2016-03-06] MEDS: QUEtiapine FUMARATE 300 MG TABLET PO SCH (21:28)
[2016-03-06] MEDS: THIAMINE HCL 100 MG TABLET (FP) PO SCH (21:28)
[2016-03-07] MEDS: GABAPENTIN 400 MG CAPSULE (FP) PO SCH ×3 (07:19→21:21)
[2016-03-07] MEDS: CYCLOBENZAPRINE HCL 10 MG TABLET (FP) PO PRN (08:37)
[2016-03-07] MEDS: NICOTINE 21 MG/24 HOURS TOPICAL PATCH TD SCH (10:06)
[2016-03-07] MEDS: PRENATAL VITAMINS W/ FOLIC ACID TABLET (FP) PO SCH (10:08)
[2016-03-07] MEDS: TRIAMTERENE AND HCTZ - 37.5 MG/25 MG CAPSULE PO SCH (10:08)
[2016-03-07] MEDS: LISINOPRIL 20 MG TABLET (FP) PO SCH ×2 (10:08→21:20)
[2016-03-07] MEDS: hydrOXYzine PAMOATE 50 MG CAPSULE (FP) PO PRN (10:09)
[2016-03-07] MEDS: IBUPROFEN 400 MG TABLET (FP) PO PRN (14:41)
[2016-03-07] MEDS: QUEtiapine FUMARATE 300 MG TABLET PO SCH (21:20)
[2016-03-07] MEDS: THIAMINE HCL 100 MG TABLET (FP) PO SCH (21:20)
[2016-03-07] MEDS: diphenhydrAMINE HCL 50 MG CAPSULE PO PRN (21:21)
[2016-03-08] MEDS: diphenhydrAMINE HCL 50 MG CAPSULE PO PRN (00:14)
[2016-03-08] MEDS: CYCLOBENZAPRINE HCL 10 MG TABLET (FP) PO PRN ×2 (00:14→10:02)
[2016-03-08] MEDS: GABAPENTIN 400 MG CAPSULE (FP) PO SCH (06:05)
[2016-03-08] MEDS: hydrOXYzine PAMOATE 50 MG CAPSULE (FP) PO PRN (06:06)
[2016-03-08 06:40] VITALS: TEMP 98.1
[2016-03-08] MEDS: TRIAMTERENE AND HCTZ - 37.5 MG/25 MG CAPSULE PO SCH (10:02)
[2016-03-08] MEDS: NICOTINE 21 MG/24 HOURS TOPICAL PATCH TD SCH (10:02)
[2016-03-08] MEDS: LISINOPRIL 20 MG TABLET (FP) PO SCH (10:03)
[2016-03-08] MEDS: PRENATAL VITAMINS W/ FOLIC ACID TABLET (FP) PO SCH (10:03)
[2016-03-08 10:27] VITALS: BP 141/89; PULSE 102
--- NOTE | 2016-03-08 14:08 | PN ---
Psychiatric Progress Note Vital Signs: Vital Signs Period Temp Pulse Resp BP Sys/Joy Pulse Ox Last 24 Hr 98.1 F 90-102 16-16 136-141/89-89 Date of Session: 03/08/16 Chief Complaint:: Discharge visit(AMA). HPI: PAtient addressed Cocaine dependence comorbid with Substance induced mood disorder. ROS: HTN,Hep C,H/O Cholecystectomy. Current Medications: Active Medications Generic Name Dose Route Start Last Admin Trade Name Freq PRN Reason Stop Dose Admin Acetaminophen 650 mg 03/03/16 15:00 Tylenol - PO Q4H PRN FEVER OR PAIN Al Hydroxide/Mg Hydroxide 30 ml 03/03/16 15:00 Mylanta Oral Suspension - PO Q6H PRN DYSPEPSIA Cyclobenzaprine HCl 10 mg 03/03/16 15:02 03/08/16 10:02 Flexeril - PO 10 mg TID PRN Administration MUSCLE SPASMS Diphenhydramine HCl 50 mg 03/03/16 15:00 03/08/16 00:14 Benadryl - PO 50 mg HSMR1 PRN Administration FOR ITCHING Eucalyptus/Menthol/Phenol/Sorbitol 1 each 03/03/16 15:00 Cepastat Lozenge - MM Q4H PRN SORE THROAT Gabapentin 400 mg 03/05/16 22:00 03/08/16 06:05 Neurontin - PO 400 mg TID JUSTIN Administration Guaifenesin 10 ml 03/03/16 15:00 Robitussin Dm - PO Q6H PRN COUGH Hydroxyzine Pamoate 50 mg 03/03/16 15:40 03/08/16 06:06 Vistaril - PO 50 mg Q4H PRN Administration ANXIETY Ibuprofen 400 mg 03/03/16 15:00 03/07/16 14:41 Motrin - PO 400 mg Q6H PRN Administration PAIN Lisinopril 20 mg 03/03/16 22:00 03/08/16 10:03 Prinivil PO 20 mg BID JUSTIN Administration Loperamide HCl 4 mg 03/03/16 15:00 Imodium - PO Q6H PRN DIARRHEA Magnesium Hydroxide 30 ml 03/03/16 15:00 Milk Of Magnesia - PO DAILY PRN CONSTIPATION Nicotine 21 mg 03/04/16 10:00 03/08/16 10:02 Nicoderm Patch - TD 21 mg DAILY JUSTIN Administration Nicotine Polacrilex 2 mg 03/03/16 15:00 Nicorette Gum - BUC Q2H PRN NICOTINE REPLACEMENT RX Multivit/Folic Acid/Iron 1 tab 03/04/16 10:00 03/08/16 10:03 Vitamins (Sjr) - PO Not Given DAILY JUSTIN Pseudoephedrine/Triprolidine 1 combo 03/03/16 15:00 Actifed - PO TID PRN NASAL CONGESTION Quetiapine Fumarate 300 mg 03/05/16 22:00 03/07/16 21:20 Seroquel - PO 300 mg HS JUSTIN Administration Thiamine HCl 100 mg 03/03/16 22:00 03/07/16 21:20 Vitamin B1 - PO 100 mg HS JUSTIN Administration Triamterene/HCTZ 1 cap 03/05/16 10:00 03/08/16 10:02 Dyazide 25/37.5mg PO 1 cap DAILY JUSTIN Administration Current Side Effect: No Lab tests ordered: No Lab tests reviewed: Yes Provider note:: Patient decided to sign out today despite our strong recommendation to continue futher stabilization on inpatient basis without serious reasons.She didnt meet her treatment goals and will continue to address her issues on outpatient basis.Patient continues to Seroquel 300 mg po hs and Neurontin 400 mg po tid.Scripts for 30 days provided. Therapy provided focusing on relapse prevention,coping skills,support system utilization to maintain recovery. Total face to face time:: 30 Mental Status Exam - Mental Status Exam Alert and Oriented to: Time, Place, Person Cognitive Function: Grossly Intact Patient Appearance: Unkempt Mood: Anxious, Irritable Affect: Labile Patient Behavior: Distractible, Resitive to Care Speech Pattern: Clear Voice Loudness: Normal Thought Process: Goal Oriented Thought Disorder: Not Present Hallucinations: Denies Suicidal Ideation: Denies Homicidal Ideation: Denies Insight/Judgement: Fair Sleep: Fair Appetite: Good Muscle strength/Tone: Normal Gait/Station: Normal Psychiatric Treatment Plan - Problem List (2) Open wound of buttock, uncomplicated Qualifiers: (5) HTN (hypertension) Qualifiers: (6) Hepatitis C Qualifiers:
== END 2016-03-08 14:13 | disposition left against medical advice (07) | DRG 770 ==
LOC: YASAS 13:07 → Y3E 13:09
PROVIDERS: ADMIT Psychiatry & Neurology Psychiatry; ATTEND Psychiatry & Neurology Psychiatry
PROC: HZ42ZZZ Group Counseling for Substance Abuse Treatment, Cognitive-Behavioral (ICD-10-PCS; principal; 2016-03-03)
DX: F14.20 Cocaine dependence, uncomplicated (principal); F19.24 Other psychoactive substance dependence with psychoactive substance-induced mood disorder; I10 Essential (primary) hypertension; B18.2 Chronic viral hepatitis C; S31.809D Unspecified open wound of unspecified buttock, subsequent encounter; X58.XXXD Exposure to other specified factors, subsequent encounter; Z90.49 Acquired absence of other specified parts of digestive tract; Z87.09 Personal history of other diseases of the respiratory system

== ENCOUNTER 2017-11-05 13:03 | Inpatient (IN) | payer OTHER ==
[2017-11-05 14:36] VITALS: BMI 24.8
--- NOTE | 2017-11-05 15:29 | HP ---
COWS - Scale Resting Pulse: 0= [place] 80 or Below Sweatin=Flushed/Facial Moisture Restless Observation: 1= Difficult to Sit Still Pupil Size: 1= Pupils >than Normal Bone or Joint Aches: 2= Severe Diffuse Aches Runny Nose/ Eye Tearin= Runny Nose/Eyes GI Upset > 30mins: 2= Nausea/Diarrhea Tremor Observation: 1= Tremor [place], Not Seen Yawning Observation: 1= 1-2x During Session Anxiety or Irritability: 2=Irritable/Anxious Goose Flesh Skin: 3=Piloerection COWS Score: 17 Admission ROS S - HPI Chief Complaint: WITHDRAWAL SYMPTOMS Allergies/Adverse Reactions: Allergies Allergy/AdvReac Type Severity Reaction Status Date / Time haloperidol [From Haldol] AdvReac stiffness Verified 02/27/16 14:33 haloperidol lactate AdvReac stiffness Verified 03/03/16 14:29 [From Haldol] History of Present Illness: 42 Y.O. WOMAN WITH AN EXTENSIVE HISTORY OF HEROIN DEPENDENCE IS HERE SEEKING DETOX. SHE HAS HAD MULTIPLE ADMISSIONS FOR DETOX WITH THE LAST BEING FROM 02/26-03/03/2016. DOES NOT HAVE A SIGNIFICANT PERIOD OF DRUG ABSTINENCE. Exam Limitations: No Limitations - Ebola screening Have you traveled outside of the country in the last 21 days: No (N) Have you had contact with anyone from an Ebola affected area: No Have you been sick,other than usual withdrawal symptoms: No Do you have a fever: No - Review of Systems Constitutional: Chills, Diaphoresis, Changes in sleep EENT: reports: Tearing, Nose Congestion Respiratory: reports: Shortness of Breath Cardiac: reports: No Symptoms Reported GI: reports: Nausea, Vomiting, Abdominal cramping : reports: No Symptoms Reported Musculoskeletal: reports: Back Pain Integumentary: reports: No Symptoms Reported Neuro: reports: Numbness (RIGHT AND LEFT HAND), Tingling Endocrine: reports: No Symptoms Reported Hematology: reports: Anemia (LEO) Psychiatric: reports: Judgement Intact, Mood/Affect Appropiate, Anxious, Depressed Other Systems: Reviewed and Negative Patient History - Patient Medical History Hx Anemia: Yes Hx Asthma: No Hx Chronic Obstructive Pulmonary Disease (COPD): No Hx Cancer: No Hx Cardiac Disorders: No Hx Congestive Heart Failure: No Hx Hypertension: Yes (HTN) Hx Hypercholesterolemia: No Hx Pacemaker: No HX Cerebrovascular Accident: No Hx Seizures: No Hx Dementia: No Hx Diabetes: No Hx Gastrointestinal Disorders: No Hx Liver Disease: Yes Hx Genitourinary Disorders: No Hx Sexually Transmitted Disorders: No Hx Renal Disease (ESRD): No Hx Thyroid Disease: No Hx Human Immunodeficiency Virus (HIV): Yes (LAST 11/13 NEGATIVE) Hx Hepatitis C: Yes (NOT TREATED) Hx Depression: Yes Hx Suicide Attempt: No Hx Bipolar Disorder: No Hx Schizophrenia: No - Patient Surgical History Past Surgical History: Yes Hx Neurologic Surgery: No Hx Cataract Extraction: No Hx Cardiac Surgery: No Hx Lung Surgery: No Hx Breast Surgery: No Hx Breast Biopsy: No Hx Abdominal Surgery: Yes (OPEN CHOLECYSTECTOMY IN 2008) Hx Appendectomy: No Hx Cholecystectomy: No Hx Genitourinary Surgery: No Hx Section: No Hx Orthopedic Surgery: No Other Surgical History: abscess incised a 2 months ago,drainage of abscess of left lung in 2004 Anesthesia Reaction: No - PPD History Results: NEEDS CXR PPD to be Administered?: No - Reproductive History Patient is a Female of Child Bearing Age (11 -55 yrs old): Yes Last Menstrual Period: 11/05/17 Patient : No - Smoking Cessation Smoking history: Current every day smoker Have you smoked in the past 12 months: Yes Aproximately how many cigarettes per day: 40 Cigars Per Day: 0 Hx Chewing Tobacco Use: No Initiated information on smoking cessation: Yes 'Breaking Loose' booklet given: 11/05/17 - Substance & Tx. History Hx Alcohol Use: No Hx Substance Use: Yes Substance Use Type: Heroin Hx Substance Use Treatment: Yes (DETOX: 02/2016) - Substances Abused Heroin Route: Injection Frequency: Daily Amount used: 30 BAGS Age of first use: 25 Date of Last Use: 11/05/17 Family Disease History - Family Disease History Family Disease History: Other: Mother (HEROIN,AIDS,,) Admission Physical Exam BHS - Vital Signs Vital Signs: Vital Signs - 24 hr 11/05/17 14:34 Temperature 98.2 F Pulse Rate 78 Respiratory 18 Rate Blood Pressure 192/119 - Physical General Appearance: Yes: Irritable, Anxious HEENTM: Yes: Hearing grossly Normal, Normal ENT Inspection, Normocephalic Respiratory: Yes: Chest Non-Tender, Lungs Clear, Normal Breath Sounds, No Respiratory Distress Neck: Yes: No masses,lesions,Nodules, Trachea in good position Breast: Yes: Breast Exam Deferred Cardiology: Yes: Regular Rhythm, Regular Rate Abdominal: Yes: Normal Bowel Sounds, Non Tender, Flat, Soft Genitourinary: Yes: Other (NO COMPLAINTS REPORTED) Back: Yes: Normal Inspection Musculoskeletal: Yes: full range of Motion, Gait Steady, Pelvis Stable Extremities: Yes: Normal Capillary Refill, Normal Inspection, Other Neurological: Yes: wheel assembler II-XII NML intact, Fully Oriented, Alert, Normal Mood/ Affect, Normal Response Integumentary: Yes: Normal Color, Dry, Warm, Other (SCARRING TO B/L UE) Lymphatic: Yes: Within Normal Limits - Diagnostic (1) HTN (hypertension) Current Visit: Yes Status: Chronic Qualifiers: (2) Hepatitis C Current Visit: Yes Status: Chronic Qualifiers: (3) Nicotine dependence Current Visit: Yes Status: Chronic Qualifiers: Nicotine product type: cigarettes Substance use status: uncomplicated Qualified Code(s): F17.210 - Nicotine dependence, cigarettes, uncomplicated (4) Opioid dependence with withdrawal Current Visit: Yes Status: Chronic (5) Muscle spasm Current Visit: Yes Status: Chronic Cleared for Admission [facility] - Detox or Rehab [facility] Level of Care: Medically Managed Detox Regimen/Protocol: Methadone [facility] Breath Alcohol Content Breath Alcohol Content: 0 Urine Pregancy Test - Result Urine Test Results: Negative- NO Line Present Urine Drug Screen - Results Drug Screen Negative: No Urine Drug Screen Results: KALYAN-Cocaine, OPI-Opiates, MTD-Methadone, OXY- Oxycodone, FEN-Fentanyl
[2017-11-05] MEDS ORDERED: LOPERAMIDE HCL 2 MG CAPSULE PO PRN (15:36)
[2017-11-05] MEDS ORDERED: METHADONE HCL 10 MG TABLET (FOR DETOX USE ONLY) PO ONE ×3 (15:36→23:00)
[2017-11-05] MEDS ORDERED: MAGNESIUM HYDROX 2400MG/30ML ORAL SUSPENSION 30 ML CUP PO PRN (15:36)
[2017-11-05] MEDS ORDERED: guaiFENesin/D-METHORPHAN HB 10 ML UNIT-DOSE CUPS PO PRN (15:36)
[2017-11-05] MEDS ORDERED: ACETAMINOPHEN 325 MG TABLET (FP) PO PRN (15:36)
[2017-11-05] MEDS ORDERED: MAG HYDROX/AL HYDROX/SIMETH 30 ML UNIT-DOSE CUP PO PRN (15:36)
[2017-11-05] MEDS ORDERED: P-EPHED 60MG/TRIPROLIDI 2.5MG TABLET PO PRN (15:36)
[2017-11-05] MEDS ORDERED: MENTHOL/PHENOL 1 EACH UD MM PRN (15:36)
[2017-11-05] MEDS ORDERED: IBUPROFEN 400 MG TABLET (FP) PO PRN (15:36)
[2017-11-05] MEDS ORDERED: MAGNESIUM CITRATE 300 ML BOTTLE PO PRN (15:36)
[2017-11-05] MEDS ORDERED: cloNIDine HCL 0.1 MG TABLET PO ONE ×2 (15:39→20:15)
[2017-11-05] MEDS: diazePAM 5 MG TABLET PO PRN (20:11)
[2017-11-05] MEDS: METHADONE HCL 10 MG TABLET (FOR DETOX USE ONLY) PO ONE (21:04)
[2017-11-05] MEDS ORDERED: MELATONIN 5 MG TABLETS PO PRN (22:00)
[2017-11-05] MEDS: CYCLOBENZAPRINE HCL 5 MG TABLET PO SCH (23:56)
[2017-11-05] MEDS: THIAMINE HCL 100 MG TABLET (FP) PO SCH (23:56)
[2017-11-05] MEDS: LISINOPRIL 20 MG TABLET (FP) PO SCH (23:56)
[2017-11-06] MEDS: diazePAM 5 MG TABLET PO PRN ×3 (05:34→22:39)
[2017-11-06] MEDS: CYCLOBENZAPRINE HCL 5 MG TABLET PO SCH ×3 (05:34→22:37)
[2017-11-06] MEDS ORDERED: METHADONE HCL 10 MG TABLET (FOR DETOX USE ONLY) PO ONE (10:00)
[2017-11-06 10:58] LABS: HEMATOCRIT 34.9 % (32.4-45.2); HEMOGLOBIN 11.2 GM/dL (10.7-15.3); MCH 24.3 pg (25.7-33.7); MCHC 32.2 g/dl (32.0-36.0); MEAN CELL VOLUME 75.4 fl (80-96); MEAN PLT VOLUME 9.7 fl (7.5-11.1); PLATELET COUNT 198 K/MM3 (134-434); RBC 4.62 M/mm3 (3.60-5.2); RDW 16.2 % (11.6-15.6)
[2017-11-06] MEDS: PRENATAL VITAMINS W/ FOLIC ACID TABLET (FP) PO SCH (11:02)
[2017-11-06] MEDS: HYDROCHLOROTHIAZIDE 12.5 MG CAPSULE (FP) PO SCH (11:03)
[2017-11-06] MEDS: LISINOPRIL 20 MG TABLET (FP) PO SCH ×2 (11:03→22:38)
[2017-11-06] MEDS: NICOTINE 21 MG/24 HOURS TOPICAL PATCH TD SCH (11:04)
[2017-11-06 11:05] LABS: ALBUMIN 3.4 g/dl (3.4-5.0); ANION GAP 8 MMOL/L (8-16); BLOOD UREA NITROGEN 16 mg/dL (7-18); CALCIUM 8.8 mg/dL (8.5-10.1); CHLORIDE 104 mmol/L (98-107); CO2 26 mmol/L (21-32); GLUCOSE,RANDOM 87 mg/dL (74-106); POTASSIUM 4.3 mmol/L (3.5-5.1); SGOT/AST 21 U/L (15-37); SODIUM 138 mmol/L (136-145)
[2017-11-06 11:08] LABS: ALK PHOS 92 U/L (45-117); BILIRUBIN,TOTAL 0.5 mg/dL (0.2-1.0); CREATININE 0.7 mg/dL (0.55-1.02); SGPT/ALT 22 U/L (12-78); TOT PROT 7.5 g/dl (6.4-8.2)
[2017-11-06 11:36] LABS: URINE APPEARANCE CLEAR; URINE BILIRUBIN NEGATIVE (<2.0 mg/dL); URINE COLOR YELLOW; URINE GLUCOSE (UA) NEGATIVE (NEGATIVE); URINE KETONE NEGATIVE (NEGATIVE); URINE LEUK ESTERASE NEGATIVE (NEGATIVE); URINE NITRITE NEGATIVE (NEGATIVE); URINE PROTEIN NEGATIVE (NEGATIVE); URINE UROBILINOGEN NEGATIVE mg/dL (0.2-1.0)
--- NOTE | 2017-11-06 14:01 | PN ---
BHS COWS - Scale Resting Pulse: 0= [place] 80 or Below Sweatin= Chills/Flushing Restless Observation: 1= Difficult to Sit Still Pupil Size: 1= Pupils >than Normal Bone or Joint Aches: 2= Severe Diffuse Aches Runny Nose/ Eye Tearin= Nasal Congestion GI Upset > 30mins: 2= Nausea/Diarrhea Tremor Observation of Outstretched Hands: 2= Slight Tremor Visible Yawning Observation: 2= >3x During Session Anxiety or Irritability: 2=Irritable/Anxious Goose Flesh Skin: 0=Smooth Skin COWS Score: 14 BHS Progress Note (SOAP) Subjective: bp 190-130/119-88 begin amlodipine 10 mg po daily joints pain running nose body aches muscle cramping trouble sleep at night Objective: 11/06/17 15:00 Vital Signs Temperature 97.4 F L 11/06/17 09:40 Pulse Rate 62 11/06/17 09:40 Respiratory Rate 18 11/06/17 09:40 Blood Pressure 150/94 11/06/17 09:40 O2 Sat by Pulse Oximetry (%) Laboratory Last Values WBC 6.0 K/mm3 (4.0-10.0) 11/06/17 08:00 RBC 4.62 M/mm3 (3.60-5.2) 11/06/17 08:00 Hgb 11.2 GM/dL (10.7-15.3) 11/06/17 08:00 Hct 34.9 % (32.4-45.2) 11/06/17 08:00 MCV 75.4 fl (80-96) L 11/06/17 08:00 MCH 24.3 pg (25.7-33.7) L 11/06/17 08:00 MCHC 32.2 g/dl (32.0-36.0) 11/06/17 08:00 RDW 16.2 % (11.6-15.6) H 11/06/17 08:00 Plt Count 198 K/MM3 (134-434) D 11/06/17 08:00 MPV 9.7 fl (7.5-11.1) 11/06/17 08:00 Sodium 138 mmol/L (136-145) 11/06/17 08:00 Potassium 4.3 mmol/L (3.5-5.1) 11/06/17 08:00 Chloride 104 mmol/L (98-107) 11/06/17 08:00 Carbon Dioxide 26 mmol/L (21-32) 11/06/17 08:00 Anion Gap 8 MMOL/L (8-16) 11/06/17 08:00 BUN 16 mg/dL (7-18) 11/06/17 08:00 Creatinine 0.7 mg/dL (0.55-1.02) 11/06/17 08:00 Creat Clearance w eGFR > 60 (>60) 11/06/17 08:00 Random Glucose 87 mg/dL (74-106) 11/06/17 08:00 Calcium 8.8 mg/dL (8.5-10.1) 11/06/17 08:00 Total Bilirubin 0.5 mg/dL (0.2-1.0) 11/06/17 08:00 AST 21 U/L (15-37) 11/06/17 08:00 ALT 22 U/L (12-78) 11/06/17 08:00 Alkaline Phosphatase 92 U/L (45-117) 11/06/17 08:00 Total Protein 7.5 g/dl (6.4-8.2) 11/06/17 08:00 Albumin 3.4 g/dl (3.4-5.0) 11/06/17 08:00 Urine Color Yellow 11/06/17 09:00 Urine Appearance Clear 11/06/17 09:00 Urine pH 6.0 (5.0-8.0) 11/06/17 09:00 Ur Specific [place] 1.021 (1.001-1.035) 11/06/17 09:00 Urine Protein Negative (NEGATIVE) 11/06/17 09:00 Urine Glucose (UA) Negative (NEGATIVE) 11/06/17 09:00 Urine Ketones Negative (NEGATIVE) 11/06/17 09:00 Urine Blood Negative (NEGATIVE) 11/06/17 09:00 Urine Nitrite Negative (NEGATIVE) 11/06/17 09:00 Urine Bilirubin Negative (<2.0 mg/dL) 11/06/17 09:00 Urine Urobilinogen Negative mg/dL (0.2-1.0) 11/06/17 09:00 Ur Leukocyte Esterase Negative (NEGATIVE) 11/06/17 09:00 RPR Titer Nonreactive (NONREACTIVE) 11/06/17 08:00 HIV 1&2 Antibody Screen Negative 11/06/17 08:00 HIV P24 Antigen Negative 11/06/17 08:00 lab noted Assessment: 11/06/17 15:00 withdrawal sx Plan: continue detox
--- NOTE | 2017-11-06 14:28 | CONSULT ---
[facility] Psychiatric Consult - Data Date of interview: 11/06/17 Admission source: Self-referred Identifying data: Ms Lowery is a 42 years old single female, unemployed supported on an annRestlet fund, homeless seeking detox treatment fot opioid Medical History: Significant for a history of hepatitis C, hypertension and history of cholecystectomy (2008) and x 1. Smokes cigaretes 1 ppd Psychiatric History: Reports long and extensive psychiatric history dating back to 13 years old to address depression,anxiety,mood instability,drug use. She was initially diagnosed with MDD.Then later the diagnosis was revised to Bipolar disorder and [place] Personality in 2009 while being admitted to [facility] due to self mutilation behavior (drug use,cutting her wrists) . Reports multiple psychiatric hospitalizations([facility] in , [facility], [facility] and [place] x2. Reports non-compliance with OPD care and medications currently. Reports that she has been on different antipsychotics including Seroquel, Haldol,Trazodone, obtaining scripts from local ER. She is willing to resume Seroquel during this admission. Reports history of 2 previous suicidal attempt at age 13 by self- inflicted burn to her right forearm and at 17 by drinking chlorox. At present, reports feeling anxious and sleeping poorly Physical/Sexual Abuse/Trauma History: Not willing to discussed Additional Comment: Reports history of 2 previous drug related arrests Mental Status Exam - Mental Status Exam Alert and Oriented to: Time, Place, Person Cognitive Function: Fair Patient Appearance: Well Groomed Mood: Anxious Affect: Appropriate Patient Behavior: Cooperative Speech Pattern: Clear Voice Loudness: Normal Thought Process: Intact, Goal Oriented Thought Disorder: Not Present Hallucinations: Denies Suicidal Ideation: Denies Homicidal Ideation: Denies Insight/Judgement: Poor Sleep: Poorly Appetite: Fair Muscle strength/Tone: Normal Gait/Station: Normal Psychiatric Findings - Problem List ([place] 1, 2,3) (1) Bipolar disorder Current Visit: Yes Status: Chronic (2) Borderline personality disorder Current Visit: Yes Status: Chronic (3) Substance-induced anxiety disorder Current Visit: Yes Status: Acute (4) Substance-induced sleep disorder Current Visit: Yes Status: Acute (5) Opioid dependence with withdrawal Current Visit: Yes Status: Chronic (6) Nicotine dependence Current Visit: Yes Status: Chronic Qualifiers: Nicotine product type: cigarettes Substance use status: uncomplicated Qualified Code(s): F17.210 - Nicotine dependence, cigarettes, uncomplicated (7) HTN (hypertension) Current Visit: Yes Status: Chronic Qualifiers: (8) Hepatitis C Current Visit: Yes Status: Chronic Qualifiers: (9) History of cholecystectomy Current Visit: No Status: Suspected - Initial Treatment Plan Initial Treatment Plan: 1) Start Seroquel 100 mg po HS. 2) Continue inpatient detoxification
[2017-11-06] MEDS: NICOTINE POLACRILEX 4 MG GUM BC PRN (14:44)
[2017-11-06] MEDS: amLODIPine BESYLATE 10 MG TABLET (FP) PO SCH (14:49)
[2017-11-06] MEDS: QUEtiapine FUMARATE 100 MG TABLET (FP) PO SCH (22:37)
[2017-11-06] MEDS: THIAMINE HCL 100 MG TABLET (FP) PO SCH (22:37)
[2017-11-07] MEDS: diazePAM 5 MG TABLET PO PRN ×4 (06:23→20:11)
[2017-11-07] MEDS: CYCLOBENZAPRINE HCL 5 MG TABLET PO SCH ×3 (06:23→22:21)
[2017-11-07] MEDS ORDERED: METHADONE HCL 5 MG TABLET (FOR DETOX USE ONLY) PO ONE (10:00)
[2017-11-07] MEDS: HYDROCHLOROTHIAZIDE 12.5 MG CAPSULE (FP) PO SCH (10:26)
[2017-11-07] MEDS: PRENATAL VITAMINS W/ FOLIC ACID TABLET (FP) PO SCH (10:26)
[2017-11-07] MEDS: NICOTINE 21 MG/24 HOURS TOPICAL PATCH TD SCH (10:27)
[2017-11-07] MEDS: LISINOPRIL 20 MG TABLET (FP) PO SCH ×2 (10:27→22:21)
[2017-11-07] MEDS: NICOTINE POLACRILEX 4 MG GUM BC PRN ×2 (10:27→13:29)
[2017-11-07] MEDS: amLODIPine BESYLATE 10 MG TABLET (FP) PO SCH (10:27)
--- NOTE | 2017-11-07 11:24 | EKG ---
Test Reason : Blood Pressure : / mmHG Vent. Rate : 083 BPM Atrial Rate : 083 BPM P-R Int : 154 ms QRS Dur : 098 ms QT Int : 414 ms P-R-T Axes : 069 050 041 degrees QTc Int : 486 ms NORMAL SINUS RHYTHM POSSIBLE LEFT ATRIAL ENLARGEMENT LEFT VENTRICULAR HYPERTROPHY PROLONGED QT ABNORMAL ECG WHEN COMPARED WITH ECG OF 15-DEC-2015 13:16, VENT. RATE HAS INCREASED BY 31 BPM T WAVE VARIATION Confirmed by GERMAN MÁRQUEZ, AKIN ([id number]) on 11/07/2017 11:24:13 AM Referred By: Confirmed By:AKIN PORTER MD
--- NOTE | 2017-11-07 12:29 | PN ---
BHS COWS - Scale Resting Pulse: 1= [place] 81-100 Sweatin= Chills/Flushing Restless Observation: 1= Difficult to Sit Still Pupil Size: 1= Pupils >than Normal Bone or Joint Aches: 1= Mild Discomfort Runny Nose/ Eye Tearin= Nasal Congestion GI Upset > 30mins: 1= Stomach Cramp Tremor Observation of Outstretched Hands: 1= Tremor [place], Not Seen Yawning Observation: 2= >3x During Session Anxiety or Irritability: 2=Irritable/Anxious Goose Flesh Skin: 0=Smooth Skin COWS Score: 12 BHS Progress Note (SOAP) Subjective: irritable tremor sweat trouble sleep at night agitative Objective: 11/07/17 12:49 Vital Signs Temperature 96.0 F L 11/07/17 09:34 Pulse Rate 61 11/07/17 09:34 Respiratory Rate 18 11/07/17 09:34 Blood Pressure 150/80 11/07/17 09:34 O2 Sat by Pulse Oximetry (%) Laboratory Last Values WBC 6.0 K/mm3 (4.0-10.0) 11/06/17 08:00 RBC 4.62 M/mm3 (3.60-5.2) 11/06/17 08:00 Hgb 11.2 GM/dL (10.7-15.3) 11/06/17 08:00 Hct 34.9 % (32.4-45.2) 11/06/17 08:00 MCV 75.4 fl (80-96) L 11/06/17 08:00 MCH 24.3 pg (25.7-33.7) L 11/06/17 08:00 MCHC 32.2 g/dl (32.0-36.0) 11/06/17 08:00 RDW 16.2 % (11.6-15.6) H 11/06/17 08:00 Plt Count 198 K/MM3 (134-434) D 11/06/17 08:00 MPV 9.7 fl (7.5-11.1) 11/06/17 08:00 Sodium 138 mmol/L (136-145) 11/06/17 08:00 Potassium 4.3 mmol/L (3.5-5.1) 11/06/17 08:00 Chloride 104 mmol/L (98-107) 11/06/17 08:00 Carbon Dioxide 26 mmol/L (21-32) 11/06/17 08:00 Anion Gap 8 MMOL/L (8-16) 11/06/17 08:00 BUN 16 mg/dL (7-18) 11/06/17 08:00 Creatinine 0.7 mg/dL (0.55-1.02) 11/06/17 08:00 Creat Clearance w eGFR > 60 (>60) 11/06/17 08:00 Random Glucose 87 mg/dL (74-106) 11/06/17 08:00 Calcium 8.8 mg/dL (8.5-10.1) 11/06/17 08:00 Total Bilirubin 0.5 mg/dL (0.2-1.0) 11/06/17 08:00 AST 21 U/L (15-37) 11/06/17 08:00 ALT 22 U/L (12-78) 11/06/17 08:00 Alkaline Phosphatase 92 U/L (45-117) 11/06/17 08:00 Total Protein 7.5 g/dl (6.4-8.2) 11/06/17 08:00 Albumin 3.4 g/dl (3.4-5.0) 11/06/17 08:00 Urine Color Yellow 11/06/17 09:00 Urine Appearance Clear 11/06/17 09:00 Urine pH 6.0 (5.0-8.0) 11/06/17 09:00 Ur Specific [place] 1.021 (1.001-1.035) 11/06/17 09:00 Urine Protein Negative (NEGATIVE) 11/06/17 09:00 Urine Glucose (UA) Negative (NEGATIVE) 11/06/17 09:00 Urine Ketones Negative (NEGATIVE) 11/06/17 09:00 Urine Blood Negative (NEGATIVE) 11/06/17 09:00 Urine Nitrite Negative (NEGATIVE) 11/06/17 09:00 Urine Bilirubin Negative (<2.0 mg/dL) 11/06/17 09:00 Urine Urobilinogen Negative mg/dL (0.2-1.0) 11/06/17 09:00 Ur Leukocyte Esterase Negative (NEGATIVE) 11/06/17 09:00 RPR Titer Nonreactive (NONREACTIVE) 09/09/18 08:00 HIV 1&2 Antibody Screen Negative 11/06/17 08:00 HIV P24 Antigen Negative 11/06/17 08:00 lab noted Assessment: 11/07/17 12:49 withdrawal sx Plan: continue detox
[2017-11-07] MEDS: METOPROLOL TARTRATE 25 MG TABLET (FP) PO SCH (13:29)
[2017-11-07] MEDS: QUEtiapine FUMARATE 100 MG TABLET (FP) PO SCH (22:21)
[2017-11-07] MEDS: THIAMINE HCL 100 MG TABLET (FP) PO SCH (22:21)
[2017-11-08] MEDS: diazePAM 5 MG TABLET PO PRN ×3 (01:00→10:18)
[2017-11-08] MEDS: hydrOXYzine PAMOATE 50 MG CAPSULE (FP) PO PRN ×3 (02:43→22:09)
[2017-11-08] MEDS: CYCLOBENZAPRINE HCL 5 MG TABLET PO SCH ×3 (05:29→22:08)
[2017-11-08] MEDS ORDERED: METHADONE HCL 5 MG TABLET (FOR DETOX USE ONLY) PO ONE (10:00)
[2017-11-08] MEDS: PRENATAL VITAMINS W/ FOLIC ACID TABLET (FP) PO SCH (10:19)
[2017-11-08] MEDS: amLODIPine BESYLATE 10 MG TABLET (FP) PO SCH (10:19)
[2017-11-08] MEDS: LISINOPRIL 20 MG TABLET (FP) PO SCH ×2 (10:19→22:09)
[2017-11-08] MEDS: NICOTINE 21 MG/24 HOURS TOPICAL PATCH TD SCH (10:19)
[2017-11-08] MEDS: METOPROLOL TARTRATE 25 MG TABLET (FP) PO SCH (10:19)
[2017-11-08] MEDS: NICOTINE POLACRILEX 4 MG GUM BC PRN ×2 (10:21→19:45)
[2017-11-08] MEDS: HYDROCHLOROTHIAZIDE 12.5 MG CAPSULE (FP) PO SCH (10:54)
--- NOTE | 2017-11-08 11:42 | PN ---
[facility] Progress Note (SOAP) Subjective: body aches trouble sleep at night restlessness irritable agitative sweat tremor Objective: 11/08/17 11:40 Vital Signs Temperature 98.1 F 11/08/17 09:31 Pulse Rate 75 11/08/17 09:31 Respiratory Rate 18 11/08/17 09:31 Blood Pressure 138/99 11/08/17 09:31 O2 Sat by Pulse Oximetry (%) Laboratory Last Values WBC 6.0 K/mm3 (4.0-10.0) 11/06/17 08:00 RBC 4.62 M/mm3 (3.60-5.2) 11/06/17 08:00 Hgb 11.2 GM/dL (10.7-15.3) 11/06/17 08:00 Hct 34.9 % (32.4-45.2) 11/06/17 08:00 MCV 75.4 fl (80-96) L 11/06/17 08:00 MCH 24.3 pg (25.7-33.7) L 11/06/17 08:00 MCHC 32.2 g/dl (32.0-36.0) 11/06/17 08:00 RDW 16.2 % (11.6-15.6) H 11/06/17 08:00 Plt Count 198 K/MM3 (134-434) D 11/06/17 08:00 MPV 9.7 fl (7.5-11.1) 11/06/17 08:00 Sodium 138 mmol/L (136-145) 11/06/17 08:00 Potassium 4.3 mmol/L (3.5-5.1) 11/06/17 08:00 Chloride 104 mmol/L (98-107) 11/06/17 08:00 Carbon Dioxide 26 mmol/L (21-32) 11/06/17 08:00 Anion Gap 8 MMOL/L (8-16) 11/06/17 08:00 BUN 16 mg/dL (7-18) 11/06/17 08:00 Creatinine 0.7 mg/dL (0.55-1.02) 11/06/17 08:00 Creat Clearance w eGFR > 60 (>60) 11/06/17 08:00 Random Glucose 87 mg/dL (74-106) 11/06/17 08:00 Calcium 8.8 mg/dL (8.5-10.1) 11/06/17 08:00 Total Bilirubin 0.5 mg/dL (0.2-1.0) 11/06/17 08:00 AST 21 U/L (15-37) 11/06/17 08:00 ALT 22 U/L (12-78) 11/06/17 08:00 Alkaline Phosphatase 92 U/L (45-117) 11/06/17 08:00 Total Protein 7.5 g/dl (6.4-8.2) 11/06/17 08:00 Albumin 3.4 g/dl (3.4-5.0) 11/06/17 08:00 Urine Color Yellow 11/06/17 09:00 Urine Appearance Clear 11/06/17 09:00 Urine pH 6.0 (5.0-8.0) 11/06/17 09:00 Ur Specific [place] 1.021 (1.001-1.035) 11/06/17 09:00 Urine Protein Negative (NEGATIVE) 11/06/17 09:00 Urine Glucose (UA) Negative (NEGATIVE) 11/06/17 09:00 Urine Ketones Negative (NEGATIVE) 11/06/17 09:00 Urine Blood Negative (NEGATIVE) 11/06/17 09:00 Urine Nitrite Negative (NEGATIVE) 11/06/17 09:00 Urine Bilirubin Negative (<2.0 mg/dL) 11/06/17 09:00 Urine Urobilinogen Negative mg/dL (0.2-1.0) 11/06/17 09:00 Ur Leukocyte Esterase Negative (NEGATIVE) 11/06/17 09:00 RPR Titer Nonreactive (NONREACTIVE) 11/06/17 08:00 HIV 1&2 Antibody Screen Negative 11/06/17 08:00 HIV P24 Antigen Negative 11/06/17 08:00 lab noted Assessment: 11/08/17 11:40 withdrawal sx hypertension Plan: continue detox tolerate lmetoprolol well continue bp monitoring
[2017-11-08] MEDS: QUEtiapine FUMARATE 100 MG TABLET (FP) PO SCH (22:09)
[2017-11-08] MEDS: THIAMINE HCL 100 MG TABLET (FP) PO SCH (22:09)
[2017-11-09] MEDS: CYCLOBENZAPRINE HCL 5 MG TABLET PO SCH ×3 (06:01→22:04)
[2017-11-09] MEDS: hydrOXYzine PAMOATE 50 MG CAPSULE (FP) PO PRN ×3 (06:03→17:21)
--- NOTE | 2017-11-09 10:09 | PN ---
[facility] Progress Note (SOAP) Subjective: interrupted sleep,sweats, cramps Objective: 11/09/17 10:07 Vital Signs Temperature 98.2 F 11/09/17 09:34 Pulse Rate 66 11/09/17 09:34 Respiratory Rate 18 11/09/17 09:34 Blood Pressure 131/82 11/09/17 09:34 O2 Sat by Pulse Oximetry (%) Laboratory Tests 11/06/17 11/06/17 11/06/17 08:00 08:00 08:00 WBC 6.0 RBC 4.62 Hgb 11.2 Hct 34.9 MCV 75.4 L MCH 24.3 L MCHC 32.2 RDW 16.2 H Plt Count 198 D MPV 9.7 Sodium 138 Potassium 4.3 Chloride 104 Carbon Dioxide 26 Anion Gap 8 BUN 16 Creatinine 0.7 Creat Clearance w eGFR > 60 Random Glucose 87 Calcium 8.8 Total Bilirubin 0.5 AST 21 ALT 22 Alkaline Phosphatase 92 Total Protein 7.5 Albumin 3.4 Urine Color Urine Appearance Urine pH Ur Specific [place] Urine Protein Urine Glucose (UA) Urine Ketones Urine Blood Urine Nitrite Urine Bilirubin Urine Urobilinogen Ur Leukocyte Esterase RPR Titer Nonreactive HIV 1&2 Antibody Screen HIV P24 Antigen 11/06/17 11/06/17 08:00 09:00 WBC RBC Hgb Hct MCV MCH MCHC RDW Plt Count MPV Sodium Potassium Chloride Carbon Dioxide Anion Gap BUN Creatinine Creat Clearance w eGFR Random Glucose Calcium Total Bilirubin AST ALT Alkaline Phosphatase Total Protein Albumin Urine Color Yellow Urine Appearance Clear Urine pH 6.0 Ur Specific [place] 1.021 Urine Protein Negative Urine Glucose (UA) Negative Urine Ketones Negative Urine Blood Negative Urine Nitrite Negative Urine Bilirubin Negative Urine Urobilinogen Negative Ur Leukocyte Esterase Negative RPR Titer HIV 1&2 Antibody Screen Negative HIV P24 Antigen Negative pt aox3 in nad lying in bed Assessment: 11/09/17 10:08 withdrawal sx's hcv Plan: continue detox increase fluids d/c in am
[2017-11-09] MEDS: amLODIPine BESYLATE 10 MG TABLET (FP) PO SCH (10:11)
[2017-11-09] MEDS: METOPROLOL TARTRATE 25 MG TABLET (FP) PO SCH (10:11)
[2017-11-09] MEDS: LISINOPRIL 20 MG TABLET (FP) PO SCH ×2 (10:11→22:04)
[2017-11-09] MEDS: HYDROCHLOROTHIAZIDE 12.5 MG CAPSULE (FP) PO SCH (10:11)
[2017-11-09] MEDS: PRENATAL VITAMINS W/ FOLIC ACID TABLET (FP) PO SCH (10:11)
[2017-11-09] MEDS: METHADONE HCL 10 MG TABLET (FOR DETOX USE ONLY) PO ONE (10:11)
[2017-11-09] MEDS: NICOTINE 21 MG/24 HOURS TOPICAL PATCH TD SCH (10:11)
[2017-11-09] MEDS ORDERED: LIDOCAINE 5% TOPICAL PATCH TP ONE (14:00)
[2017-11-09] MEDS ORDERED: LIDOCAINE PATCH REMOVAL MC SCH ×2 (22:00)
[2017-11-09] MEDS: QUEtiapine FUMARATE 100 MG TABLET (FP) PO SCH (22:04)
[2017-11-09] MEDS: THIAMINE HCL 100 MG TABLET (FP) PO SCH (22:04)
[2017-11-10] MEDS: CYCLOBENZAPRINE HCL 5 MG TABLET PO SCH (05:08)
[2017-11-10] MEDS ORDERED: METHADONE HCL 5 MG TABLET (FOR DETOX USE ONLY) PO ONE (06:00)
--- NOTE | 2017-11-10 08:47 | DS ---
[facility] Detox Discharge Summary Admission Date: 11/05/17 Discharge Date: 11/10/17 - History Present History: Opioid Dependence Additional Comments: 42 years old female admitted on 11/05/17 for opiate withdrawal sx completed opiate detox regimen tolerated well denies opiate withdrawal sx alert oriented x 3 no acute distress [facility] - Physical Exam Results Vital Signs: Vital Signs Temperature 97.9 F 11/10/17 06:00 Pulse Rate 53 L 11/10/17 06:00 Respiratory Rate 18 11/10/17 06:00 Blood Pressure 114/73 11/10/17 06:00 O2 Sat by Pulse Oximetry (%) Pertinent Admission Physical Exam Findings: opiate withdrawal sx Vital Signs Temperature 98.4 F 11/10/17 08:57 Pulse Rate 73 11/10/17 08:57 Respiratory Rate 18 11/10/17 08:57 Blood Pressure 123/90 11/10/17 08:57 O2 Sat by Pulse Oximetry (%) Laboratory Last Values WBC 6.0 K/mm3 (4.0-10.0) 11/06/17 08:00 RBC 4.62 M/mm3 (3.60-5.2) 11/06/17 08:00 Hgb 11.2 GM/dL (10.7-15.3) 11/06/17 08:00 Hct 34.9 % (32.4-45.2) 11/06/17 08:00 MCV 75.4 fl (80-96) L 11/06/17 08:00 MCH 24.3 pg (25.7-33.7) L 11/06/17 08:00 MCHC 32.2 g/dl (32.0-36.0) 11/06/17 08:00 RDW 16.2 % (11.6-15.6) H 11/06/17 08:00 Plt Count 198 K/MM3 (134-434) D 11/06/17 08:00 MPV 9.7 fl (7.5-11.1) 11/06/17 08:00 Sodium 138 mmol/L (136-145) 11/06/17 08:00 Potassium 4.3 mmol/L (3.5-5.1) 11/06/17 08:00 Chloride 104 mmol/L (98-107) 11/06/17 08:00 Carbon Dioxide 26 mmol/L (21-32) 11/06/17 08:00 Anion Gap 8 MMOL/L (8-16) 11/06/17 08:00 BUN 16 mg/dL (7-18) 11/06/17 08:00 Creatinine 0.7 mg/dL (0.55-1.02) 11/06/17 08:00 Creat Clearance w eGFR > 60 (>60) 11/06/17 08:00 Random Glucose 87 mg/dL (74-106) 11/06/17 08:00 Calcium 8.8 mg/dL (8.5-10.1) 11/06/17 08:00 Total Bilirubin 0.5 mg/dL (0.2-1.0) 11/06/17 08:00 AST 21 U/L (15-37) 11/06/17 08:00 ALT 22 U/L (12-78) 11/06/17 08:00 Alkaline Phosphatase 92 U/L (45-117) 11/06/17 08:00 Total Protein 7.5 g/dl (6.4-8.2) 11/06/17 08:00 Albumin 3.4 g/dl (3.4-5.0) 11/06/17 08:00 Urine Color Yellow 11/06/17 09:00 Urine Appearance Clear 11/06/17 09:00 Urine pH 6.0 (5.0-8.0) 11/06/17 09:00 Ur Specific [place] 1.021 (1.001-1.035) 11/06/17 09:00 Urine Protein Negative (NEGATIVE) 11/06/17 09:00 Urine Glucose (UA) Negative (NEGATIVE) 11/06/17 09:00 Urine Ketones Negative (NEGATIVE) 11/06/17 09:00 Urine Blood Negative (NEGATIVE) 11/06/17 09:00 Urine Nitrite Negative (NEGATIVE) 11/06/17 09:00 Urine Bilirubin Negative (<2.0 mg/dL) 11/06/17 09:00 Urine Urobilinogen Negative mg/dL (0.2-1.0) 11/06/17 09:00 Ur Leukocyte Esterase Negative (NEGATIVE) 11/06/17 09:00 RPR Titer Nonreactive (NONREACTIVE) 11/06/17 08:00 HIV 1&2 Antibody Screen Negative 11/06/17 08:00 HIV P24 Antigen Negative 11/06/17 08:00 lab noted - Treatment Hospital Course: Detox Protocol Followed, Detoxed Safely, Responded well, Discharged Condition Good, Rehab Referral Accepted Patient has Accepted [facility] Referral [facility] - Medication Discharge Medications: Ambulatory Orders Lisinopril [Prinivil] 20 mg PO BID #60 tablet 03/03/16 Quetiapine Fumarate [Seroquel -] 150 mg PO HS 11/05/17 Amlodipine Besylate 10 mg PO DAILY 11/06/17 Quetiapine Fumarate [Seroquel] 100 mg PO HS #30 tablet 11/06/17 Amlodipine Besylate [Norvasc -] 10 mg PO DAILY #30 tablet 11/09/17 Hydrochlorothiazide [Hctz -] 12.5 cap PO DAILY #30 cap 11/09/17 Lisinopril [Prinivil] 20 mg PO BID #30 tablet 11/09/17 Metoprolol Tartrate [Lopressor -] 25 mg PO DAILY #30 tablet 11/09/17 - Diagnosis (1) Cocaine dependence, uncomplicated Status: Chronic (2) HTN (hypertension) Status: Chronic Qualifiers: Hypertension type: essential hypertension (3) Hepatitis C Status: Suspected Qualifiers: Viral hepatitis chronicity: unspecified Hepatic coma status: without hepatic coma Qualified Code(s): B19.20 - Unspecified viral hepatitis C without hepatic coma (4) Nicotine dependence Status: Acute Qualifiers: Nicotine product type: cigarettes Substance use status: in withdrawal Qualified Code(s): F17.213 - Nicotine dependence, cigarettes, with withdrawal (5) Opioid dependence with withdrawal Status: Acute (6) Weight loss Status: Acute (7) Substance-induced anxiety disorder Status: Suspected - AMA Did Patient Leave Against Medical Advice: No
[2017-11-10 08:58] VITALS: BP 123/90; PULSE 73; TEMP 98.4
[2017-11-10] MEDS: amLODIPine BESYLATE 10 MG TABLET (FP) PO SCH (09:07)
[2017-11-10] MEDS: METOPROLOL TARTRATE 25 MG TABLET (FP) PO SCH (09:07)
[2017-11-10] MEDS: LISINOPRIL 20 MG TABLET (FP) PO SCH (09:07)
[2017-11-10] MEDS: PRENATAL VITAMINS W/ FOLIC ACID TABLET (FP) PO SCH (09:08)
[2017-11-10] MEDS: NICOTINE 21 MG/24 HOURS TOPICAL PATCH TD SCH (09:08)
[2017-11-10] MEDS: HYDROCHLOROTHIAZIDE 12.5 MG CAPSULE (FP) PO SCH (09:08)
[2017-11-10] MEDS ORDERED: LIDOCAINE 5% TOPICAL PATCH TP SCH (10:00)
== END 2017-11-10 09:30 | disposition home or self-care (01) | DRG 773 ==
LOC: YASAS 13:03 → Y6N 16:48
PROC: HZ2ZZZZ Detoxification Services for Substance Abuse Treatment (ICD-10-PCS; principal; 2017-11-05)
DX: F11.23 Opioid dependence with withdrawal (principal); F14.20 Cocaine dependence, uncomplicated; F17.213 Nicotine dependence, cigarettes, with withdrawal; F19.280 Other psychoactive substance dependence with psychoactive substance-induced anxiety disorder; F19.282 Other psychoactive substance dependence with psychoactive substance-induced sleep disorder; F31.9 Bipolar disorder, unspecified; F60.9 Personality disorder, unspecified; I10 Essential (primary) hypertension; B18.2 Chronic viral hepatitis C; R63.4 Abnormal weight loss; Z68.24 Body mass index [BMI] 24.0-24.9, adult; M62.838 Other muscle spasm; Z90.49 Acquired absence of other specified parts of digestive tract
CPT/HCPCS: 36415; 71046-TC-FY; 80053; 81003; 85027; 86593; 87389; 93005; 93010; J0735

== ENCOUNTER 2017-12-12 14:01 | Inpatient (IN) | payer OTHER ==
[2017-12-12 14:46] VITALS: BMI 24.0
--- NOTE | 2017-12-12 17:10 | HP ---
"CIWA Score - CIWA Score Nausea/Vomitin-Mild Nausea/No Vomiting Muscle Tremors: 4-Moderate,w/Arms Extend Anxiety: 4-Mod. Anxious/Guarded Agitation: 4-Moderately Restless Paroxysmal Sweats: 1-Minimal Palms Moist Orientation: 1-Uncertain about Date Tacttile Disturbances: 0-None Auditory Disturbances: 0-None Visual Disturbances: 0-None Headache: 0-None Present CIWA-Ar Total Score: 15 Admission ROS [facility] - HPI Chief Complaint: I am here because I drink and I'm having withdrawal. Allergies/Adverse Reactions: Allergies Allergy/AdvReac Type Severity Reaction Status Date / Time haloperidol [From Haldol] AdvReac stiffness Verified 12/12/17 16:14 haloperidol lactate AdvReac stiffness Verified 12/12/17 16:14 [From Haldol] History of Present Illness: Alcohol use since age13. Nicotine use since age13. Cocaine use since age 22. Heroin use disorder since age22. Multiple MMTPs. Currently at [facility] - for 8 days. Currently on 30 mg. Hx seizure 1.5 months ago r/t drinking. Denies blackouts. Hx: HTN last took medications on 12/11. Denies CP/irregular heart beat. Hx depression on meds. Search Terms: [employer], 1975 Search Date: 12/12/2017 05:40:40 PM The Drug Utilization Report below displays all of the controlled substance prescriptions, if any, that your patient has filled in the last twelve months. The information displayed on this report is compiled from pharmacy submissions to the Department, and accurately reflects the information as submitted by the pharmacies. This report was requested by: Jes Welch | Reference #: [id number] There are no results for the search terms that you entered. Exam Limitations: No Limitations - Ebola screening Have you traveled outside of the country in the last 21 days: No Have you had contact with anyone from an Ebola affected area: No Have you been sick,other than usual withdrawal symptoms: No Do you have a fever: No - Review of Systems Constitutional: Chills, Diaphoresis, Changes in sleep (Difficulty faling and staying asleep) EENT: reports: Nose Congestion, Dental Problems (Missing teeth. Chews and swallows okay.) Respiratory: reports: No Symptoms reported Cardiac: reports: No Symptoms Reported GI: reports: Nausea (in mornings), Indigestion (acid stomach r/t alcohol use) : reports: No Symptoms Reported Musculoskeletal: reports: No Symptoms Reported Integumentary: reports: No Symptoms Reported Neuro: reports: Headache (pressure sensation), Numbness (In finger tips and bottoms of feet), Seizure (2 months ago), Tremors Endocrine: reports: No Symptoms Reported Hematology: reports: Anemia (Needs iron pills) Psychiatric: reports: Judgement Intact, Agitated, Anxious, Depressed (Denies thpughts of harming self or others), Disorientated (Off date by 2 days) Patient History - Patient Medical History Hx Anemia: Yes Hx Asthma: No Hx Chronic Obstructive Pulmonary Disease (COPD): No Hx Cancer: No Hx Cardiac Disorders: No Hx Congestive Heart Failure: No Hx Hypertension: Yes (on meds.) Hx Hypercholesterolemia: No Hx Pacemaker: No HX Cerebrovascular Accident: No Hx Seizures: Yes (pt states she had a seizure 2 months ago.) Hx Dementia: No Hx Diabetes: No Hx Gastrointestinal Disorders: No Hx Liver Disease: Yes (Hep C) Hx Genitourinary Disorders: No Hx Sexually Transmitted Disorders: No Hx Renal Disease (ESRD): No Hx Thyroid Disease: No Hx Human Immunodeficiency Virus (HIV): Yes (LAST 11/13 NEGATIVE) Hx Hepatitis C: Yes (NOT TREATED) Hx Depression: Yes Hx Suicide Attempt: No Hx Bipolar Disorder: No Hx Schizophrenia: No - Patient Surgical History Past Surgical History: Yes Hx Neurologic Surgery: No Hx Cataract Extraction: No Hx Cardiac Surgery: No Hx Lung Surgery: Yes (Lung drainage x 10 years ago) Hx Breast Surgery: No Hx Breast Biopsy: No Hx Abdominal Surgery: Yes (OPEN CHOLECYSTECTOMY IN 2008) Hx Appendectomy: No Hx Cholecystectomy: No Hx Genitourinary Surgery: No Hx Section: No Hx Orthopedic Surgery: No Other Surgical History: abscess incised a 2 months ago,drainage of abscess of left lung in 2004 Anesthesia Reaction: No - PPD History Previous Implant?: Yes Documented Results: Positive w/proof Implanted On Prior R Admission?: No Results: CXR neg 11/15 PPD to be Administered?: No - Reproductive History Patient is a Female of Child Bearing Age (11 -55 yrs old): Yes Last Menstrual Period: 11/17/17 Patient : No - Smoking Cessation Smoking history: Current every day smoker Have you smoked in the past 12 months: Yes Aproximately how many cigarettes per day: 30 Cigars Per Day: 0 Hx Chewing Tobacco Use: No Initiated information on smoking cessation: Yes 'Breaking Loose' booklet given: 12/12/17 - Substance & Tx. History Hx Alcohol Use: Yes Hx Substance Use: Yes Substance Use Type: Alcohol, Cocaine, Opiates Hx Substance Use Treatment: Yes (detox, rehabs, MMTP) - Substances Abused Alcohol Route: Oral Frequency: Daily Amount used: 2 pints vodka Age of first use: 13 Date of Last Use: 12/12/17 Cocaine Route: Injection Frequency: Daily Amount used: $50 Age of first use: 22 Date of Last Use: 12/11/17 Family Disease History - Family Disease History Family Disease History: Other: Mother (HEROIN,AIDS,,) Admission Physical Exam [facility] - Vital Signs Vital Signs: Vital Signs - 24 hr 12/12/17 14:43 Temperature 98.7 F Pulse Rate 91 H Respiratory 18 Rate Blood Pressure 153/103 H - Physical General Appearance: Yes: Mild Distress, Tremorous, Sweating (Facial moisture unrelated to temperature), Anxious HEENTM: Yes: EOMI, Hearing grossly Normal, Normocephalic, Normal Voice, SINGH ( Pupils at 2 mm), Pharynx Normal Respiratory: Yes: Lungs Clear, Normal Breath Sounds, No Respiratory Distress Neck: Yes: No masses,lesions,Nodules, Supple Breast: Yes: Breast Exam Deferred Cardiology: Yes: Regular Rhythm, S1, S2, Tachycardia Abdominal: Yes: Soft, Increased Bowel Sounds, Tenderness (RUQ tenderness upon deep palpation) Genitourinary: Yes: Within Normal Limits Back: Yes: Normal Inspection Musculoskeletal: Yes: Within Normal Limits, Gait Steady Extremities: Yes: Normal Capillary Refill, Normal Inspection, Normal Range of Motion, Tremors (Tremors of hands at rest and increase w/ arms lifted) Neurological: Yes: hair mixer II-XII NML intact, Alert, Motor Strength 5/5 Integumentary: Yes: Normal Color, Dry, Warm, Track Pascual (Old track pascual and healed skin-popping lesions on arms and legs.) Lymphatic: Yes: Within Normal Limits - Diagnostic (1) Alcohol dependence with uncomplicated withdrawal Current Visit: Yes Status: Acute (2) Methadone maintenance therapy patient Current Visit: Yes Status: Chronic (3) Cocaine dependence, uncomplicated Current Visit: Yes Status: Chronic (4) Nicotine dependence Current Visit: Yes Status: Acute Qualifiers: Nicotine product type: cigarettes Substance use status: uncomplicated Qualified Code(s): F17.210 - Nicotine dependence, cigarettes, uncomplicated (5) HTN (hypertension) Current Visit: No Status: Chronic Qualifiers: Hypertension type: essential hypertension Qualified Code(s): I10 - Essential (primary) hypertension Cleared for Admission [facility] - Detox or Rehab [facility] Level of Care: Medically Managed Detox Regimen/Protocol: Librium S Breath Alcohol Content Breath Alcohol Content: 0.023 Urine Pregancy Test - Result Urine Test Results: Negative- NO Line Present Urine Drug Screen - Results Drug Screen Negative: No Urine Drug Screen Results: KALYAN-Cocaine, OPI-Opiates, MTD-Methadone"
[2017-12-12] MEDS ORDERED: hydrOXYzine PAMOATE 50 MG CAPSULE (FP) PO PRN (17:32)
[2017-12-12] MEDS ORDERED: P-EPHED 60MG/TRIPROLIDI 2.5MG TABLET PO PRN (17:32)
[2017-12-12] MEDS ORDERED: MAG HYDROX/AL HYDROX/SIMETH 30 ML UNIT-DOSE CUP PO PRN (17:32)
[2017-12-12] MEDS ORDERED: ACETAMINOPHEN 325 MG TABLET (FP) PO PRN (17:32)
[2017-12-12] MEDS ORDERED: chlordiazePOXIDE HCL 25 MG CAPSULE PO PRN (17:32)
[2017-12-12] MEDS ORDERED: MAGNESIUM CITRATE 300 ML BOTTLE PO PRN (17:32)
[2017-12-12] MEDS ORDERED: MENTHOL/PHENOL 1 EACH UD MM PRN (17:32)
[2017-12-12] MEDS ORDERED: LOPERAMIDE HCL 2 MG CAPSULE PO PRN (17:32)
[2017-12-12] MEDS ORDERED: guaiFENesin/D-METHORPHAN HB 10 ML UNIT-DOSE CUPS PO PRN (17:32)
[2017-12-12] MEDS ORDERED: IBUPROFEN 400 MG TABLET (FP) PO PRN (17:32)
[2017-12-12] MEDS ORDERED: MAGNESIUM HYDROX 2400MG/30ML ORAL SUSPENSION 30 ML CUP PO PRN (17:32)
[2017-12-12] MEDS ORDERED: chlordiazePOXIDE HCL 25 MG CAPSULE PO ONE (18:15)
--- NOTE | 2017-12-12 18:31 | PN ---
S Progress Note Note: Vital Signs Temperature 98.7 F 12/12/17 14:43 Pulse Rate 91 H 12/12/17 14:43 Respiratory Rate 18 12/12/17 14:43 Blood Pressure 153/103 H 12/12/17 14:43 O2 Sat by Pulse Oximetry (%) Prolog QT repeat EKG in AM d/c Vistaril and loperamide continue to monitor
[2017-12-12] MEDS ORDERED: cloNIDine HCL 0.1 MG TABLET PO ONE (18:44)
--- NOTE | 2017-12-12 18:45 | PN ---
S Progress Note Note: Vital Signs Temperature 98.7 F 12/12/17 14:43 Pulse Rate 91 H 12/12/17 14:43 Respiratory Rate 18 12/12/17 14:43 Blood Pressure 153/103 H 12/12/17 14:43 O2 Sat by Pulse Oximetry (%) BP upon arriving in unit 163/113 c/o of back pain clonidine 0.1 mg flexeril prn contineu detox continue to monitor
--- NOTE | 2017-12-12 20:24 | HP ---
CIWA Score - CIWA Score Nausea/Vomitin-Mild Nausea/No Vomiting Muscle Tremors: 4-Moderate,w/Arms Extend Anxiety: 4-Mod. Anxious/Guarded Agitation: 4-Moderately Restless Paroxysmal Sweats: 1-Minimal Palms Moist Orientation: 1-Uncertain about Date Tacttile Disturbances: 0-None Auditory Disturbances: 0-None Visual Disturbances: 0-None Headache: 0-None Present CIWA-Ar Total Score: 15 Admission ROS S - HPI Allergies/Adverse Reactions: Allergies Allergy/AdvReac Type Severity Reaction Status Date / Time haloperidol [From Haldol] AdvReac stiffness Verified 12/12/17 16:14 haloperidol lactate AdvReac stiffness Verified 12/12/17 16:14 [From Haldol] - Ebola screening Have you traveled outside of the country in the last 21 days: No Have you had contact with anyone from an Ebola affected area: No Have you been sick,other than usual withdrawal symptoms: No Do you have a fever: No Patient History - Patient Medical History Hx Anemia: Yes Hx Asthma: No Hx Chronic Obstructive Pulmonary Disease (COPD): No Hx Cancer: No Hx Cardiac Disorders: No Hx Congestive Heart Failure: No Hx Hypertension: Yes (on meds.) Hx Hypercholesterolemia: No Hx Pacemaker: No HX Cerebrovascular Accident: No Hx Seizures: Yes (pt states she had a seizure 2 months ago.) Hx Dementia: No Hx Diabetes: No Hx Gastrointestinal Disorders: No Hx Liver Disease: Yes (Hep C) Hx Genitourinary Disorders: No Hx Sexually Transmitted Disorders: No Hx Renal Disease (ESRD): No Hx Thyroid Disease: No Hx Human Immunodeficiency Virus (HIV): No (LAST 11/13 NEGATIVE) Hx Hepatitis C: Yes (NOT TREATED) Hx Depression: Yes Hx Suicide Attempt: No Hx Bipolar Disorder: No Hx Schizophrenia: No - Patient Surgical History Past Surgical History: Yes Hx Neurologic Surgery: No Hx Cataract Extraction: No Hx Cardiac Surgery: No Hx Lung Surgery: Yes (Lung drainage x 10 years ago) Hx Breast Surgery: No Hx Breast Biopsy: No Hx Abdominal Surgery: Yes (OPEN CHOLECYSTECTOMY IN 2008) Hx Appendectomy: No Hx Cholecystectomy: No Hx Genitourinary Surgery: No Hx Section: No Hx Orthopedic Surgery: No Other Surgical History: abscess incised a 2 months ago,drainage of abscess of left lung in 2004 Anesthesia Reaction: No - PPD History Previous Implant?: Yes Documented Results: Positive w/proof Implanted On Prior [facility] Admission?: No Results: CXR neg 11/15 - Reproductive History Last Menstrual Period: 11/17/17 Patient : No - Smoking Cessation Smoking history: Current every day smoker Have you smoked in the past 12 months: Yes Aproximately how many cigarettes per day: 30 Cigars Per Day: 0 Hx Chewing Tobacco Use: No Initiated information on smoking cessation: Yes 'Breaking Loose' booklet given: 12/12/17 - Substances Abused Alcohol Route: Oral Frequency: Daily Amount used: 2 pints vodka Age of first use: 13 Date of Last Use: 12/12/17 Cocaine Route: Injection Frequency: Daily Amount used: $50 Age of first use: 22 Date of Last Use: 12/11/17 Family Disease History - Family Disease History Family Disease History: Other: Mother (HEROIN,AIDS,,) Admission Physical Exam [facility] - Vital Signs Vital Signs: Vital Signs - 24 hr 12/12/17 14:43 Temperature 98.7 F Pulse Rate 91 H Respiratory 18 Rate Blood Pressure 153/103 H - Diagnostic (1) Alcohol dependence with uncomplicated withdrawal Current Visit: Yes Status: Acute (2) Methadone maintenance therapy patient Current Visit: Yes Status: Chronic (3) Cocaine dependence, uncomplicated Current Visit: Yes Status: Chronic (4) Nicotine dependence Current Visit: Yes Status: Acute Qualifiers: Nicotine product type: cigarettes Substance use status: uncomplicated Qualified Code(s): F17.210 - Nicotine dependence, cigarettes, uncomplicated (5) HTN (hypertension) Current Visit: No Status: Chronic Qualifiers: Hypertension type: essential hypertension Qualified Code(s): I10 - Essential (primary) hypertension [facility] Breath Alcohol Content Breath Alcohol Content: 0.023 Urine Pregancy Test - Result Urine Test Results: Negative- NO Line Present Urine Drug Screen - Results Drug Screen Negative: No Urine Drug Screen Results: KALYAN-Cocaine, OPI-Opiates, MTD-Methadone
[2017-12-12] MEDS ORDERED: MELATONIN 5 MG TABLETS PO PRN (22:00)
[2017-12-12] MEDS ORDERED: CYCLOBENZAPRINE HCL 10 MG TABLET (FP) PO SCH (22:00)
[2017-12-12] MEDS: THIAMINE HCL 100 MG TABLET (FP) PO SCH (22:06)
[2017-12-12] MEDS: LISINOPRIL 20 MG TABLET (FP) PO SCH (22:06)
[2017-12-12] MEDS: chlordiazePOXIDE HCL 25 MG CAPSULE PO SCH (22:06)
[2017-12-12 22:16] LABS: URINE APPEARANCE SLCLOUDY; URINE BILIRUBIN NEGATIVE (<2.0 mg/dL); URINE COLOR YELLOW; URINE GLUCOSE (UA) NEGATIVE (NEGATIVE); URINE KETONE NEGATIVE (NEGATIVE); URINE LEUK ESTERASE NEGATIVE (NEGATIVE); URINE NITRITE NEGATIVE (NEGATIVE); URINE PROTEIN NEGATIVE (NEGATIVE); URINE UROBILINOGEN NEGATIVE mg/dL (0.2-1.0)
[2017-12-13] MEDS: chlordiazePOXIDE HCL 25 MG CAPSULE PO SCH ×4 (05:19→22:26)
[2017-12-13] MEDS ORDERED: CYCLOBENZAPRINE HCL 5 MG TABLET PO SCH (06:00)
--- NOTE | 2017-12-13 09:29 | CONSULT ---
[facility] Psychiatric Consult - Data Date of interview: 12/13/17 Admission source: [facility] Identifying data: Patient is a 42 year old single female, without children, unemployed, and currently resides with boyfriend's mother. This is one of multiple admissions for patient. Patient admitted to for alcohol dependence. Substance Abuse History: - Smoking Cessation. Smoking history: Current every day smoker. Have you smoked in the past 12 months: Yes. Aproximately how many cigarettes per day: 30. Cigars Per Day: 0. Hx Chewing Tobacco Use: No. Initiated information on smoking cessation: Yes. 'Breaking Loose' booklet given : 12/12/17. - Substances Abused. Alcohol. Route: Oral. Frequency: Daily. Amount used: 2 pints vodka. Age of first use: 13. Date of Last Use: . Cocaine. Route: Injection. Frequency: Daily. Amount used: $50. Age of first use: 22. Date of Last Use: 12/11/17 Medical History: Anemia, hypertension, Seizures, Psychiatric History: Patient's first psychiatric contact was at 13 years of age after a suicide attempt via cutting self in which she was admitted to [facility]. Patient denies additional psychiatric hospitalization. Patient reports last seeing an outpatient psychiatrist approximately 20 years ago. States most of her psychiatric contacts occur while in detox/ rehab facilites. Patient was recently admitted to rehab on 11/06/17 and was prescribed seroquel 100mg. As per Dr. Guidry's note on 11/06/17 patient reported multiple psychiatric hospitalizations([facility] in , [facility], [facility] and [facility] x2. Patient is currently on Methadone maintenace of 30mg daily. Patient currently reports poor sleep and feeling restless. Physical/Sexual Abuse/Trauma History: denies. Mental Status Exam - Mental Status Exam Alert and Oriented to: Time, Place, Person Cognitive Function: Good Patient Appearance: Well Groomed Mood: Euthymic Affect: Appropriate Patient Behavior: Appropriate, Cooperative Speech Pattern: Appropriate Voice Loudness: Normal Thought Process: Intact, Goal Oriented Thought Disorder: Not Present Hallucinations: Denies Suicidal Ideation: Denies Homicidal Ideation: Denies Insight/Judgement: Poor Sleep: Poorly Appetite: Fair Muscle strength/Tone: Normal Gait/Station: Normal Psychiatric Findings - Problem List ([place] 1, 2,3) (1) Alcohol dependence with uncomplicated withdrawal Current Visit: Yes Status: Acute (2) Nicotine dependence Current Visit: Yes Status: Acute Qualifiers: Nicotine product type: cigarettes Substance use status: uncomplicated Qualified Code(s): F17.210 - Nicotine dependence, cigarettes, uncomplicated (3) Cocaine dependence, uncomplicated Current Visit: Yes Status: Chronic (4) Methadone maintenance therapy patient Current Visit: Yes Status: Chronic (5) Mood disorder Current Visit: Yes Status: Chronic (6) Substance-induced sleep disorder Current Visit: Yes Status: Acute - Initial Treatment Plan Initial Treatment Plan: Psychoeducation provided. Detoxificiation in progress. Will order Seroquel 100mg qhs. Benefits and side effects discussed. Verbal consent given.
[2017-12-13] MEDS ORDERED: METHADONE HCL 10 MG TABLET PO ONE (09:35)
[2017-12-13] MEDS: METOPROLOL TARTRATE 25 MG TABLET (FP) PO SCH (10:07)
[2017-12-13] MEDS: amLODIPine BESYLATE 10 MG TABLET (FP) PO SCH (10:07)
[2017-12-13] MEDS: LISINOPRIL 20 MG TABLET (FP) PO SCH ×2 (10:07→22:26)
[2017-12-13] MEDS: PRENATAL VITAMINS W/ FOLIC ACID TABLET (FP) PO SCH (10:08)
[2017-12-13] MEDS: NICOTINE 21 MG/24 HOURS TOPICAL PATCH TD SCH (10:08)
[2017-12-13] MEDS: NICOTINE POLACRILEX 4 MG GUM BC PRN ×2 (10:10→22:29)
[2017-12-13] MEDS: CYCLOBENZAPRINE HCL 10 MG TABLET (FP) PO PRN ×3 (10:10→22:26)
[2017-12-13 10:11] LABS: HEMOGLOBIN 12.1 GM/dL (10.7-15.3); MCH 24.9 pg (25.7-33.7); MCHC 32.7 g/dl (32.0-36.0); MEAN CELL VOLUME 76.2 fl (80-96); MEAN PLT VOLUME 9.1 fl (7.5-11.1); PLATELET COUNT 185 K/MM3 (134-434); RBC 4.86 M/mm3 (3.60-5.2); RDW 16.2 % (11.6-15.6)
[2017-12-13 11:04] LABS: ALBUMIN 3.5 g/dl (3.4-5.0); ALK PHOS 72 U/L (45-117); ANION GAP 8 MMOL/L (8-16); BILIRUBIN,TOTAL 0.6 mg/dL (0.2-1); BLOOD UREA NITROGEN 16 mg/dL (7-18); CALCIUM 8.8 mg/dL (8.5-10.1); CHLORIDE 104 mmol/L (98-107); CO2 27 mmol/L (21-32); CREATININE 0.7 mg/dL (0.55-1.3); GLUCOSE,RANDOM 89 mg/dL (74-106); SGOT/AST 17 U/L (15-37); SGPT/ALT 27 U/L (13-61); SODIUM 139 mmol/L (136-145); TOT PROT 7.5 g/dl (6.4-8.2)
--- NOTE | 2017-12-13 11:27 | PN ---
[facility] CIWA - CIWA Score Nausea/Vomitin-No Nausea/No Vomiting Muscle Tremors: 3 Anxiety: 3 Agitation: 3 Paroxysmal Sweats: 3 Orientation: 0-Oriented Tacttile Disturbances: 0-None Auditory Disturbances: 0-None Visual Disturbances: 0-None Headache: 1-Very Mild CIWA-Ar Total Score: 13 S Progress Note (SOAP) Subjective: shakes sweats interrupted sleep agitation body aches Objective: 12/13/17 11:25 Vital Signs Temperature 98.7 F 12/13/17 09:44 Pulse Rate 77 12/13/17 09:44 Respiratory Rate 16 12/13/17 09:44 Blood Pressure 132/78 12/13/17 09:44 O2 Sat by Pulse Oximetry (%) Laboratory Tests 12/12/17 12/13/17 12/13/17 20:49 07:00 07:00 WBC 7.0 RBC 4.86 Hgb 12.1 Hct 37.0 MCV 76.2 L MCH 24.9 L MCHC 32.7 RDW 16.2 H Plt Count 185 MPV 9.1 Sodium 139 Potassium 4.0 Chloride 104 Carbon Dioxide 27 Anion Gap 8 BUN 16 Creatinine 0.7 Creat Clearance w eGFR > 60 Random Glucose 89 Calcium 8.8 Total Bilirubin 0.6 AST 17 ALT 27 Alkaline Phosphatase 72 Total Protein 7.5 Albumin 3.5 Urine Color Yellow Urine Appearance Slcloudy Urine pH 6.0 Ur Specific [place] 1.015 Urine Protein Negative Urine Glucose (UA) Negative Urine Ketones Negative Urine Blood Negative Urine Nitrite Negative Urine Bilirubin Negative Urine Urobilinogen Negative Ur Leukocyte Esterase Negative RPR Titer 12/13/17 07:00 WBC RBC Hgb Hct MCV MCH MCHC RDW Plt Count MPV Sodium Potassium Chloride Carbon Dioxide Anion Gap BUN Creatinine Creat Clearance w eGFR Random Glucose Calcium Total Bilirubin AST ALT Alkaline Phosphatase Total Protein Albumin Urine Color Urine Appearance Urine pH Ur Specific [place] Urine Protein Urine Glucose (UA) Urine Ketones Urine Blood Urine Nitrite Urine Bilirubin Urine Urobilinogen Ur Leukocyte Esterase RPR Titer Nonreactive aaox3 ambulating no acute distress Assessment: 12/13/17 11:25 withdrawal sx Plan: continue detox increase fluids
--- NOTE | 2017-12-13 13:17 | EKG ---
Test Reason : Blood Pressure : / mmHG Vent. Rate : 082 BPM Atrial Rate : 082 BPM P-R Int : 148 ms QRS Dur : 098 ms QT Int : 422 ms P-R-T Axes : 072 047 055 degrees QTc Int : 493 ms NORMAL SINUS RHYTHM POSSIBLE LEFT ATRIAL ENLARGEMENT LEFT VENTRICULAR HYPERTROPHY PROLONGED QT ABNORMAL ECG WHEN COMPARED WITH ECG OF 05-NOV-2017 18:04, NO SIGNIFICANT CHANGE WAS FOUND Confirmed by MD KOLE, KATHLEEN ([id number]) on 12/13/2017 1:17:36 PM Referred By: Confirmed By:KATHLEEN SHARIF MD
[2017-12-13] MEDS: THIAMINE HCL 100 MG TABLET (FP) PO SCH (22:26)
[2017-12-13] MEDS: QUEtiapine FUMARATE 100 MG TABLET (FP) PO SCH (22:26)
[2017-12-14] MEDS: chlordiazePOXIDE HCL 25 MG CAPSULE PO SCH ×3 (06:00→17:21)
[2017-12-14] MEDS: CYCLOBENZAPRINE HCL 10 MG TABLET (FP) PO PRN ×2 (06:00→14:39)
[2017-12-14] MEDS: METHADONE HCL 10 MG TABLET PO SCH (06:00)
[2017-12-14] MEDS: PRENATAL VITAMINS W/ FOLIC ACID TABLET (FP) PO SCH (10:09)
[2017-12-14] MEDS: amLODIPine BESYLATE 10 MG TABLET (FP) PO SCH (10:09)
[2017-12-14] MEDS: LISINOPRIL 20 MG TABLET (FP) PO SCH ×2 (10:09→23:16)
[2017-12-14] MEDS: METOPROLOL TARTRATE 25 MG TABLET (FP) PO SCH (10:10)
[2017-12-14] MEDS: NICOTINE 21 MG/24 HOURS TOPICAL PATCH TD SCH (10:10)
[2017-12-14] MEDS: NICOTINE POLACRILEX 4 MG GUM BC PRN ×3 (10:11→23:17)
--- NOTE | 2017-12-14 10:46 | PN ---
S CIWA - CIWA Score Nausea/Vomitin-No Nausea/No Vomiting Muscle Tremors: 3 Anxiety: 3 Agitation: 3 Paroxysmal Sweats: 3 Orientation: 0-Oriented Tacttile Disturbances: 0-None Auditory Disturbances: 0-None Visual Disturbances: 0-None Headache: 0-None Present CIWA-Ar Total Score: 12 S Progress Note (SOAP) Subjective: low back pain sweats dry/itchy skin interrupted sleep Objective: 12/14/17 10:45 Vital Signs Temperature 97.5 F L 12/14/17 10:11 Pulse Rate 71 12/14/17 10:11 Respiratory Rate 18 12/14/17 10:11 Blood Pressure 117/71 12/14/17 10:11 O2 Sat by Pulse Oximetry (%) Laboratory Tests 12/12/17 12/13/17 12/13/17 20:49 07:00 07:00 WBC 7.0 RBC 4.86 Hgb 12.1 Hct 37.0 MCV 76.2 L MCH 24.9 L MCHC 32.7 RDW 16.2 H Plt Count 185 MPV 9.1 Sodium 139 Potassium 4.0 Chloride 104 Carbon Dioxide 27 Anion Gap 8 BUN 16 Creatinine 0.7 Creat Clearance w eGFR > 60 Random Glucose 89 Calcium 8.8 Total Bilirubin 0.6 AST 17 ALT 27 Alkaline Phosphatase 72 Total Protein 7.5 Albumin 3.5 Urine Color Yellow Urine Appearance Slcloudy Urine pH 6.0 Ur Specific [place] 1.015 Urine Protein Negative Urine Glucose (UA) Negative Urine Ketones Negative Urine Blood Negative Urine Nitrite Negative Urine Bilirubin Negative Urine Urobilinogen Negative Ur Leukocyte Esterase Negative RPR Titer 12/13/17 07:00 WBC RBC Hgb Hct MCV MCH MCHC RDW Plt Count MPV Sodium Potassium Chloride Carbon Dioxide Anion Gap BUN Creatinine Creat Clearance w eGFR Random Glucose Calcium Total Bilirubin AST ALT Alkaline Phosphatase Total Protein Albumin Urine Color Urine Appearance Urine pH Ur Specific [place] Urine Protein Urine Glucose (UA) Urine Ketones Urine Blood Urine Nitrite Urine Bilirubin Urine Urobilinogen Ur Leukocyte Esterase RPR Titer Nonreactive aaox3 ambulating no acute distress Assessment: 12/14/17 10:45 withdrawal sx Plan: continue detox increase fluids aveeno soap lidocaine patch
[2017-12-14] MEDS ORDERED: LIDOCAINE 5% TOPICAL PATCH TP ONE (11:20)
[2017-12-14] MEDS: COLLOIDAL OATMEAL 1 BAR EACH TP PRN (13:46)
[2017-12-14] MEDS: chlordiazePOXIDE 5 MG CAPSULE PO SCH (23:16)
[2017-12-14] MEDS: THIAMINE HCL 100 MG TABLET (FP) PO SCH (23:16)
[2017-12-14] MEDS: QUEtiapine FUMARATE 100 MG TABLET (FP) PO SCH (23:17)
[2017-12-14] MEDS: LIDOCAINE PATCH REMOVAL MC SCH (23:17)
[2017-12-15] MEDS: chlordiazePOXIDE 5 MG CAPSULE PO SCH ×3 (05:59→17:18)
[2017-12-15] MEDS: METHADONE HCL 10 MG TABLET PO SCH (06:00)
[2017-12-15] MEDS: CYCLOBENZAPRINE HCL 10 MG TABLET (FP) PO PRN ×3 (09:39→22:03)
[2017-12-15] MEDS: METOPROLOL TARTRATE 25 MG TABLET (FP) PO SCH (10:33)
[2017-12-15] MEDS: amLODIPine BESYLATE 10 MG TABLET (FP) PO SCH (10:33)
[2017-12-15] MEDS: LISINOPRIL 20 MG TABLET (FP) PO SCH ×2 (10:33→22:04)
[2017-12-15] MEDS: PRENATAL VITAMINS W/ FOLIC ACID TABLET (FP) PO SCH (10:34)
[2017-12-15] MEDS: LIDOCAINE 5% TOPICAL PATCH TP SCH (10:34)
[2017-12-15] MEDS: NICOTINE 21 MG/24 HOURS TOPICAL PATCH TD SCH (10:35)
[2017-12-15] MEDS: NICOTINE POLACRILEX 4 MG GUM BC PRN ×2 (10:35→17:18)
--- NOTE | 2017-12-15 11:19 | PN ---
[facility] Progress Note (SOAP) Subjective: low back pain sweats Objective: 12/15/17 11:19 Vital Signs Temperature 97.7 F 12/15/17 08:17 Pulse Rate 69 12/15/17 08:17 Respiratory Rate 18 12/15/17 08:17 Blood Pressure 134/89 12/15/17 08:17 O2 Sat by Pulse Oximetry (%) aaox3 ambulating no acute distress Assessment: 12/15/17 11:19 withdrawal sx Plan: continue detox increase fluids motrin prn lidocaine patch flexiril prn d/c in am
[2017-12-15] MEDS: LIDOCAINE PATCH REMOVAL MC SCH (22:03)
[2017-12-15] MEDS: chlordiazePOXIDE HCL 10 MG CAPSULE PO SCH (22:03)
[2017-12-15] MEDS: QUEtiapine FUMARATE 100 MG TABLET (FP) PO SCH (22:04)
[2017-12-15] MEDS: THIAMINE HCL 100 MG TABLET (FP) PO SCH (22:04)
[2017-12-16] MEDS: chlordiazePOXIDE HCL 10 MG CAPSULE PO SCH ×2 (05:47→10:28)
[2017-12-16] MEDS: METHADONE HCL 10 MG TABLET PO SCH (05:47)
[2017-12-16] MEDS: CYCLOBENZAPRINE HCL 10 MG TABLET (FP) PO PRN (05:49)
[2017-12-16] MEDS: COLLOIDAL OATMEAL 1 BAR EACH TP PRN (09:11)
[2017-12-16 09:22] VITALS: BP 114/70; PULSE 88; TEMP 98.1
--- NOTE | 2017-12-16 09:23 | DS ---
[facility] Detox Discharge Summary Admission Date: 12/12/17 Discharge Date: 12/16/17 - History Present History: Alcohol Dependence, Cocaine Dependence, Opioid Dependence, MMTP - Physical Exam Results Vital Signs: Vital Signs Temperature 97.9 F 12/16/17 08:17 Pulse Rate 69 12/16/17 08:17 Respiratory Rate 18 12/16/17 08:17 Blood Pressure 124/76 12/16/17 08:17 O2 Sat by Pulse Oximetry (%) - Treatment Hospital Course: Detox Protocol Followed, Detoxed Safely, Responded well, Discharged Condition Good, Rehab Referral Accepted - Medication Discharge Medications: Ambulatory Orders Quetiapine Fumarate [Seroquel -] 150 mg PO HS 11/05/17 Amlodipine Besylate [Norvasc -] 10 mg PO DAILY #30 tablet 11/09/17 Lisinopril [Prinivil] 20 mg PO BID #30 tablet 11/09/17 Metoprolol Tartrate [Lopressor -] 25 mg PO DAILY #30 tablet 11/09/17 - Diagnosis (1) Alcohol dependence with uncomplicated withdrawal Current Visit: Yes Status: Chronic (2) Nicotine dependence Current Visit: Yes Status: Chronic Qualifiers: Nicotine product type: cigarettes Substance use status: uncomplicated Qualified Code(s): F17.210 - Nicotine dependence, cigarettes, uncomplicated (3) Substance induced mood disorder Current Visit: Yes Status: Acute (4) Substance-induced sleep disorder Current Visit: Yes Status: Acute (5) Cocaine dependence, uncomplicated Current Visit: Yes Status: Chronic (6) Methadone maintenance therapy patient Current Visit: Yes Status: Chronic (7) Mood disorder Current Visit: Yes Status: Chronic (8) Opioid dependence with withdrawal Current Visit: No Status: Acute (9) Substance-induced anxiety disorder Current Visit: No Status: Acute (10) Weight loss Current Visit: No Status: Acute (11) Bipolar disorder Current Visit: No Status: Chronic (12) Borderline personality disorder Current Visit: No Status: Chronic (13) HTN (hypertension) Current Visit: No Status: Chronic Qualifiers: Hypertension type: essential hypertension Qualified Code(s): I10 - Essential (primary) hypertension (14) Insomnia Current Visit: No Status: Chronic (15) Muscle spasm Current Visit: No Status: Chronic (16) Hepatitis C Current Visit: No Status: Suspected Qualifiers: Viral hepatitis chronicity: unspecified Hepatic coma status: without hepatic coma Qualified Code(s): B19.20 - Unspecified viral hepatitis C without hepatic coma (17) History of cholecystectomy Current Visit: No Status: Suspected (18) Substance-induced anxiety disorder Current Visit: No Status: Suspected - AMA Did Patient Leave Against Medical Advice: No (referred to [facility])
[2017-12-16] MEDS: amLODIPine BESYLATE 10 MG TABLET (FP) PO SCH (09:39)
[2017-12-16] MEDS: PRENATAL VITAMINS W/ FOLIC ACID TABLET (FP) PO SCH (09:39)
[2017-12-16] MEDS: METOPROLOL TARTRATE 25 MG TABLET (FP) PO SCH (09:39)
[2017-12-16] MEDS: LISINOPRIL 20 MG TABLET (FP) PO SCH (09:39)
[2017-12-16] MEDS: LIDOCAINE 5% TOPICAL PATCH TP SCH (09:41)
[2017-12-16] MEDS: NICOTINE 21 MG/24 HOURS TOPICAL PATCH TD SCH (09:41)
== END 2017-12-16 11:55 | disposition other institution (70) | DRG 773 ==
LOC: YASAS 14:01 → Y6N 16:41
PROC: HZ2ZZZZ Detoxification Services for Substance Abuse Treatment (ICD-10-PCS; principal; 2017-12-12)
DX: F10.230 Alcohol dependence with withdrawal, uncomplicated (principal); F11.20 Opioid dependence, uncomplicated; F14.20 Cocaine dependence, uncomplicated; F17.210 Nicotine dependence, cigarettes, uncomplicated; F19.24 Other psychoactive substance dependence with psychoactive substance-induced mood disorder; F19.280 Other psychoactive substance dependence with psychoactive substance-induced anxiety disorder; F19.282 Other psychoactive substance dependence with psychoactive substance-induced sleep disorder; F39 Unspecified mood [affective] disorder; F31.9 Bipolar disorder, unspecified; F60.3 Borderline personality disorder; I10 Essential (primary) hypertension; G47.00 Insomnia, unspecified; M62.838 Other muscle spasm; B19.20 Unspecified viral hepatitis C without hepatic coma; Z87.898 Personal history of other specified conditions; Z88.8 Allergy status to other drugs, medicaments and biological substances; Z86.69 Personal history of other diseases of the nervous system and sense organs
CPT/HCPCS: 36415; 80053; 81003; 85027; 86593; 93005; 93010; J0735

== ENCOUNTER 2017-12-16 11:39 | Inpatient (IN) | payer OTHER ==
[2017-12-16] MEDS ORDERED: MAGNESIUM CITRATE 300 ML BOTTLE PO PRN (12:01)
[2017-12-16] MEDS ORDERED: MAGNESIUM HYDROX 2400MG/30ML ORAL SUSPENSION 30 ML CUP PO PRN (12:01)
[2017-12-16] MEDS ORDERED: ACETAMINOPHEN 325 MG TABLET (FP) PO PRN (12:01)
[2017-12-16] MEDS ORDERED: MAG HYDROX/AL HYDROX/SIMETH 30 ML UNIT-DOSE CUP PO PRN (12:01)
[2017-12-16] MEDS ORDERED: LOPERAMIDE HCL 2 MG CAPSULE PO PRN (12:01)
[2017-12-16] MEDS ORDERED: P-EPHED 60MG/TRIPROLIDI 2.5MG TABLET PO PRN (12:01)
[2017-12-16] MEDS ORDERED: MENTHOL/PHENOL 1 EACH UD MM PRN (12:01)
[2017-12-16] MEDS ORDERED: guaiFENesin/D-METHORPHAN HB 10 ML UNIT-DOSE CUPS PO PRN (12:01)
--- NOTE | 2017-12-16 12:01 | HP ---
[facility] Rehab Assess/Revision - Admission History Admitted to Rehab from: [facility] - Findings Detox History & Physical reviewed: Yes Concur with findings: Yes
--- NOTE | 2017-12-16 13:08 | HP ---
Psychiatrist Admission - Data Date of interview: 12/16/17 Admission source: [facility] Identifying data: This is the second admission to [address] [place] [address] for this 42 years old single female,undomiciled, supported by PA. Medical History: HTN,Hep C,H/O Lung abscess,H/O Cholecystectomy. Psychiatric History: Patient has long and extensive psychiatric history,started back in her teens.Patient addressed anxiety,depression,drug abuse.She was dx with Depressive disorder.Then she was dx with Bipoolar disorder and Bordeline Personality.3 psychiatric hospitalizations.most recent was in 2009 to [facility] due to severe depression,suicidal ideas.Patient stopped to see a psychiatrist a few years ago since she relapsed on heroin,drinking.She restarted Seroquel 100 mg po hs while being in detox on [facility] this week, prescribed by .Patient is complining of depression,mood instability, anxiety and willing to start Lexapro 5 mg po daily. Physical/Sexual Abuse/Trauma History: denies Vital Signs: Vital Signs - 24 hr 12/16/17 12:29 Temperature 97.2 F L Pulse Rate 76 Respiratory 18 Rate Blood Pressure 119/77 Allergies/Adverse Reactions: Allergies Allergy/AdvReac Type Severity Reaction Status Date / Time haloperidol [From Haldol] AdvReac stiffness Verified 12/12/17 16:14 haloperidol lactate AdvReac stiffness Verified 12/12/17 16:14 [From Haldol] Date of last physical exam: 12/12/17 Concur with the findings of this exam: Yes - Substance Abuse/Tx History Hx Alcohol Use: Yes (drinking since childhood,heavy drinker since april 2017) Hx Substance Use: Yes (heroin since 22 yo,20 bags IV daily,ccoacine since 22 yo IV) Substance Use Type: Alcohol, Heroin Hx Substance Use Treatment: Yes (patient left this program in Feb 2016) Mental Status Exam - Mental Status Exam Alert and Oriented to: Time, Place, Person Cognitive Function: Grossly Intact Patient Appearance: Unkempt Mood: Sad, Anxious Affect: Labile Patient Behavior: Cooperative Speech Pattern: Clear Voice Loudness: Normal Thought Process: Goal Oriented Thought Disorder: Not Present Hallucinations: Denies Suicidal Ideation: Denies Homicidal Ideation: Denies Insight/Judgement: Fair Sleep: Fair Appetite: Fair Muscle strength/Tone: Normal Gait/Station: Normal Psychiatric Findings - Problem List ([place] 1, 2,3) (1) Substance induced mood disorder Current Visit: Yes Status: Chronic (2) Bipolar disorder Current Visit: Yes Status: Chronic (3) Borderline personality disorder Current Visit: Yes Status: Chronic (4) Opioid dependence Current Visit: Yes Status: Chronic (5) Methadone maintenance therapy patient Current Visit: Yes Status: Chronic (6) Nicotine dependence Current Visit: Yes Status: Chronic Qualifiers: (7) Hepatitis C Current Visit: Yes Status: Suspected Qualifiers: (8) History of cholecystectomy Current Visit: Yes Status: Resolved - Initial Treatment Plan Initial Treatment Plan: Continue Seroquel 100 mg po hs and start Lexapro 5 mg po daily.Will monitor progress.
[2017-12-16] MEDS: ESCITALOPRAM OXALATE 10 MG TABLET (FP) PO SCH (14:54)
[2017-12-16] MEDS: CYCLOBENZAPRINE HCL 10 MG TABLET (FP) PO PRN ×2 (14:54→21:13)
[2017-12-16] MEDS: LIDOCAINE PATCH REMOVAL MC SCH (21:11)
[2017-12-16] MEDS: QUEtiapine FUMARATE 100 MG TABLET (FP) PO SCH (21:12)
[2017-12-16] MEDS: LISINOPRIL 20 MG TABLET (FP) PO SCH (21:12)
[2017-12-16] MEDS: THIAMINE HCL 100 MG TABLET (FP) PO SCH (21:12)
[2017-12-17] MEDS: METHADONE HCL 10 MG TABLET PO SCH (06:39)
[2017-12-17] MEDS: CYCLOBENZAPRINE HCL 10 MG TABLET (FP) PO PRN ×2 (06:40→17:35)
[2017-12-17] MEDS: hydrOXYzine PAMOATE 50 MG CAPSULE (FP) PO PRN ×2 (09:47→17:35)
[2017-12-17] MEDS: PRENATAL VITAMINS W/ FOLIC ACID TABLET (FP) PO SCH (09:47)
[2017-12-17] MEDS: LIDOCAINE 5% TOPICAL PATCH TP SCH (09:47)
[2017-12-17] MEDS: NICOTINE 21 MG/24 HOURS TOPICAL PATCH TD SCH (09:47)
[2017-12-17] MEDS: ESCITALOPRAM OXALATE 10 MG TABLET (FP) PO SCH (09:47)
[2017-12-17] MEDS: METOPROLOL TARTRATE 25 MG TABLET (FP) PO SCH (09:47)
[2017-12-17] MEDS: amLODIPine BESYLATE 10 MG TABLET (FP) PO SCH (09:48)
[2017-12-17] MEDS: LISINOPRIL 20 MG TABLET (FP) PO SCH ×2 (09:48→21:11)
[2017-12-17] MEDS: LIDOCAINE PATCH REMOVAL MC SCH (21:10)
[2017-12-17] MEDS: THIAMINE HCL 100 MG TABLET (FP) PO SCH (21:10)
[2017-12-17] MEDS: MELATONIN 5 MG TABLETS PO PRN (21:11)
[2017-12-17] MEDS: QUEtiapine FUMARATE 100 MG TABLET (FP) PO SCH (21:11)
[2017-12-18] MEDS: METHADONE HCL 10 MG TABLET PO SCH (06:42)
[2017-12-18] MEDS: CYCLOBENZAPRINE HCL 10 MG TABLET (FP) PO PRN ×3 (06:43→21:05)
[2017-12-18] MEDS: PRENATAL VITAMINS W/ FOLIC ACID TABLET (FP) PO SCH (10:03)
[2017-12-18] MEDS: ESCITALOPRAM OXALATE 10 MG TABLET (FP) PO SCH (10:03)
[2017-12-18] MEDS: NICOTINE 21 MG/24 HOURS TOPICAL PATCH TD SCH (10:03)
[2017-12-18] MEDS: LIDOCAINE 5% TOPICAL PATCH TP SCH (10:03)
[2017-12-18] MEDS: METOPROLOL TARTRATE 25 MG TABLET (FP) PO SCH (10:04)
[2017-12-18] MEDS: LISINOPRIL 20 MG TABLET (FP) PO SCH ×2 (10:04→21:05)
[2017-12-18] MEDS: amLODIPine BESYLATE 10 MG TABLET (FP) PO SCH (10:06)
[2017-12-18] MEDS: hydrOXYzine PAMOATE 50 MG CAPSULE (FP) PO PRN ×2 (10:07→15:30)
[2017-12-18] MEDS: IBUPROFEN 400 MG TABLET (FP) PO PRN (19:39)
[2017-12-18] MEDS: QUEtiapine FUMARATE 100 MG TABLET (FP) PO SCH (21:05)
[2017-12-18] MEDS: MELATONIN 5 MG TABLETS PO PRN (21:07)
[2017-12-18] MEDS: THIAMINE HCL 100 MG TABLET (FP) PO SCH (21:07)
[2017-12-18] MEDS: LIDOCAINE PATCH REMOVAL MC SCH (21:39)
[2017-12-19] MEDS: METHADONE HCL 10 MG TABLET PO SCH (06:03)
[2017-12-19] MEDS: CYCLOBENZAPRINE HCL 10 MG TABLET (FP) PO PRN ×2 (06:04→14:19)
[2017-12-19] MEDS: ESCITALOPRAM OXALATE 10 MG TABLET (FP) PO SCH (09:32)
[2017-12-19] MEDS: NICOTINE 21 MG/24 HOURS TOPICAL PATCH TD SCH (09:32)
[2017-12-19] MEDS: LIDOCAINE 5% TOPICAL PATCH TP SCH (09:32)
[2017-12-19] MEDS: hydrOXYzine PAMOATE 50 MG CAPSULE (FP) PO PRN ×3 (09:33→21:35)
[2017-12-19] MEDS: METOPROLOL TARTRATE 25 MG TABLET (FP) PO SCH (09:33)
[2017-12-19] MEDS: LISINOPRIL 20 MG TABLET (FP) PO SCH ×2 (09:33→21:35)
[2017-12-19] MEDS: PRENATAL VITAMINS W/ FOLIC ACID TABLET (FP) PO SCH (09:33)
[2017-12-19] MEDS: amLODIPine BESYLATE 10 MG TABLET (FP) PO SCH (09:33)
[2017-12-19] MEDS: NICOTINE POLACRILEX 4 MG GUM BUC PRN (09:35)
[2017-12-19] MEDS ORDERED: COLLOIDAL OATMEAL 1 BAR EACH TP PRN (16:01)
[2017-12-19] MEDS: THIAMINE HCL 100 MG TABLET (FP) PO SCH (21:35)
[2017-12-19] MEDS: QUEtiapine FUMARATE 100 MG TABLET (FP) PO SCH (21:35)
[2017-12-19] MEDS: LIDOCAINE PATCH REMOVAL MC SCH (21:37)
[2017-12-19] MEDS: CYCLOBENZAPRINE HCL 10 MG TABLET (FP) PO SCH (21:38)
[2017-12-20] MEDS: METHADONE HCL 10 MG TABLET PO SCH (06:03)
[2017-12-20] MEDS: CYCLOBENZAPRINE HCL 10 MG TABLET (FP) PO SCH ×3 (06:03→21:23)
[2017-12-20] MEDS: LIDOCAINE 5% TOPICAL PATCH TP SCH (09:55)
[2017-12-20] MEDS: ESCITALOPRAM OXALATE 10 MG TABLET (FP) PO SCH (09:55)
[2017-12-20] MEDS: METOPROLOL TARTRATE 25 MG TABLET (FP) PO SCH (09:57)
[2017-12-20] MEDS: hydrOXYzine PAMOATE 50 MG CAPSULE (FP) PO PRN ×3 (09:58→21:25)
[2017-12-20] MEDS: PRENATAL VITAMINS W/ FOLIC ACID TABLET (FP) PO SCH (09:58)
[2017-12-20] MEDS: NICOTINE 21 MG/24 HOURS TOPICAL PATCH TD SCH (09:58)
[2017-12-20] MEDS: LISINOPRIL 20 MG TABLET (FP) PO SCH ×2 (09:58→21:23)
[2017-12-20] MEDS: amLODIPine BESYLATE 10 MG TABLET (FP) PO SCH (09:58)
[2017-12-20] MEDS: NICOTINE POLACRILEX 4 MG GUM BUC PRN ×2 (10:09→17:32)
--- NOTE | 2017-12-20 15:29 | PN ---
[facility] Progress Note Note: PT IS AN ADMISSION FROM [address] [place] [address] ON THE 12/16/17. PT NOW C/O "ABSCESS" ON HER LEFT UPPER ARM "FROM SKIN POPPING". PT DENIES ANY ALLLERGY TO MEDICATIONS OR ANY ANTIBIOTICS. SKIN EXAM:GENERALIZED MULTIPLE HEALED CIRCULAR SCARS ON BOTH UPPER EXTREMITIES. AN AREA OF RECENT SKIN INVOLVEMENT WITH REDNESS AND SWELLING. Vital Signs 12/20/17 09:50 Pulse Rate 81 Blood Pressure 118/73 IMPRESSION:SKIN ABSCESS PLAN:KEFLEX 500 MG PO BID, FIRST DOSE NOW. BACITRACIN OINTMENT DIRECTED. INCREASE PO FLUIDS.
[2017-12-20] MEDS: CEPHALEXIN MONOHYDRATE 500 MG CAPSULE (UD) PO ONE (17:31)
[2017-12-20] MEDS: QUEtiapine FUMARATE 100 MG TABLET (FP) PO SCH (21:23)
[2017-12-20] MEDS: THIAMINE HCL 100 MG TABLET (FP) PO SCH (21:23)
[2017-12-20] MEDS: LIDOCAINE PATCH REMOVAL MC SCH (21:24)
[2017-12-20] MEDS: BACITRACIN 0.9 GM PACKET TP SCH (21:25)
[2017-12-20] MEDS: CEPHALEXIN MONOHYDRATE 500 MG CAPSULE (UD) PO SCH (21:25)
[2017-12-21] MEDS: CYCLOBENZAPRINE HCL 10 MG TABLET (FP) PO SCH ×3 (06:01→21:10)
[2017-12-21] MEDS: METHADONE HCL 10 MG TABLET PO SCH (06:01)
[2017-12-21] MEDS: LIDOCAINE 5% TOPICAL PATCH TP SCH (10:12)
[2017-12-21] MEDS: METOPROLOL TARTRATE 25 MG TABLET (FP) PO SCH (10:12)
[2017-12-21] MEDS: NICOTINE 21 MG/24 HOURS TOPICAL PATCH TD SCH (10:12)
[2017-12-21] MEDS: BACITRACIN 0.9 GM PACKET TP SCH ×2 (10:12→21:11)
[2017-12-21] MEDS: CEPHALEXIN MONOHYDRATE 500 MG CAPSULE (UD) PO SCH ×2 (10:12→21:10)
[2017-12-21] MEDS: amLODIPine BESYLATE 10 MG TABLET (FP) PO SCH (10:13)
[2017-12-21] MEDS: hydrOXYzine PAMOATE 50 MG CAPSULE (FP) PO PRN ×2 (10:13→14:35)
[2017-12-21] MEDS: PRENATAL VITAMINS W/ FOLIC ACID TABLET (FP) PO SCH (10:13)
[2017-12-21] MEDS: LISINOPRIL 20 MG TABLET (FP) PO SCH ×2 (10:13→21:10)
[2017-12-21] MEDS: ESCITALOPRAM OXALATE 10 MG TABLET (FP) PO SCH (10:14)
[2017-12-21] MEDS: NICOTINE POLACRILEX 4 MG GUM BUC PRN ×2 (10:15→17:55)
[2017-12-21] MEDS: THIAMINE HCL 100 MG TABLET (FP) PO SCH (21:09)
[2017-12-21] MEDS: QUEtiapine FUMARATE 100 MG TABLET (FP) PO SCH (21:10)
[2017-12-21] MEDS: LIDOCAINE PATCH REMOVAL MC SCH (21:11)
[2017-12-22] MEDS: METHADONE HCL 10 MG TABLET PO SCH (05:58)
[2017-12-22] MEDS: CYCLOBENZAPRINE HCL 10 MG TABLET (FP) PO SCH ×3 (05:59→21:09)
[2017-12-22] MEDS: PRENATAL VITAMINS W/ FOLIC ACID TABLET (FP) PO SCH (10:24)
[2017-12-22] MEDS: hydrOXYzine PAMOATE 50 MG CAPSULE (FP) PO PRN ×3 (10:24→21:09)
[2017-12-22] MEDS: LISINOPRIL 20 MG TABLET (FP) PO SCH ×2 (10:24→21:09)
[2017-12-22] MEDS: ESCITALOPRAM OXALATE 10 MG TABLET (FP) PO SCH (10:24)
[2017-12-22] MEDS: LIDOCAINE 5% TOPICAL PATCH TP SCH (10:24)
[2017-12-22] MEDS: CEPHALEXIN MONOHYDRATE 500 MG CAPSULE (UD) PO SCH ×2 (10:25→21:09)
[2017-12-22] MEDS: METOPROLOL TARTRATE 25 MG TABLET (FP) PO SCH (10:25)
[2017-12-22] MEDS: amLODIPine BESYLATE 10 MG TABLET (FP) PO SCH (10:25)
[2017-12-22] MEDS: NICOTINE 21 MG/24 HOURS TOPICAL PATCH TD SCH (10:26)
[2017-12-22] MEDS: BACITRACIN 0.9 GM PACKET TP SCH ×2 (10:45→21:08)
[2017-12-22] MEDS ORDERED: INSULIN (NOVOLOG) ASPART 100 UNITS/ML 10ML VIAL ONE (11:55)
--- NOTE | 2017-12-22 13:21 | PN ---
[facility] Progress Note Note: Vital Signs Temperature 98.3 F 12/22/17 06:00 Pulse Rate 85 12/22/17 09:16 Respiratory Rate 18 12/22/17 09:16 Blood Pressure 132/82 12/22/17 09:16 O2 Sat by Pulse Oximetry (%) c/o of dry eyes b/l no other complaints visine prn continue to monitor
[2017-12-22] MEDS: NICOTINE POLACRILEX 4 MG GUM BUC PRN (13:31)
[2017-12-22] MEDS: LIDOCAINE PATCH REMOVAL MC SCH (21:09)
[2017-12-22] MEDS: QUEtiapine FUMARATE 100 MG TABLET (FP) PO SCH (21:09)
[2017-12-22] MEDS: THIAMINE HCL 100 MG TABLET (FP) PO SCH (21:09)
[2017-12-23] MEDS: METHADONE HCL 10 MG TABLET PO SCH (06:27)
[2017-12-23] MEDS: CYCLOBENZAPRINE HCL 10 MG TABLET (FP) PO SCH ×3 (06:27→21:11)
[2017-12-23] MEDS: NICOTINE 21 MG/24 HOURS TOPICAL PATCH TD SCH (09:59)
[2017-12-23] MEDS: LIDOCAINE 5% TOPICAL PATCH TP SCH (09:59)
[2017-12-23] MEDS: BACITRACIN 0.9 GM PACKET TP SCH ×2 (10:00→21:10)
[2017-12-23] MEDS: CEPHALEXIN MONOHYDRATE 500 MG CAPSULE (UD) PO SCH ×2 (10:00→21:11)
[2017-12-23] MEDS: PRENATAL VITAMINS W/ FOLIC ACID TABLET (FP) PO SCH (10:00)
[2017-12-23] MEDS: amLODIPine BESYLATE 10 MG TABLET (FP) PO SCH (10:00)
[2017-12-23] MEDS: LISINOPRIL 20 MG TABLET (FP) PO SCH ×2 (10:01→21:11)
[2017-12-23] MEDS: METOPROLOL TARTRATE 25 MG TABLET (FP) PO SCH (10:01)
[2017-12-23] MEDS: hydrOXYzine PAMOATE 50 MG CAPSULE (FP) PO PRN ×3 (10:01→21:10)
[2017-12-23] MEDS: TETRAHYDROZOLINE HCL EYE DROPS OU PRN (10:01)
[2017-12-23] MEDS: NICOTINE POLACRILEX 4 MG GUM BUC PRN ×3 (10:02→21:11)
[2017-12-23] MEDS: ESCITALOPRAM OXALATE 10 MG TABLET (FP) PO SCH (10:03)
[2017-12-23] MEDS: COLLOIDAL OATMEAL 1 BAR EACH TP PRN (18:19)
[2017-12-23] MEDS: MELATONIN 5 MG TABLETS PO PRN (21:10)
[2017-12-23] MEDS: QUEtiapine FUMARATE 100 MG TABLET (FP) PO SCH (21:11)
[2017-12-23] MEDS: THIAMINE HCL 100 MG TABLET (FP) PO SCH (21:11)
[2017-12-23] MEDS: LIDOCAINE PATCH REMOVAL MC SCH (22:12)
[2017-12-24] MEDS: METHADONE HCL 10 MG TABLET PO SCH (06:28)
[2017-12-24] MEDS: CYCLOBENZAPRINE HCL 10 MG TABLET (FP) PO SCH ×3 (06:28→21:13)
[2017-12-24] MEDS: BACITRACIN 0.9 GM PACKET TP SCH ×2 (09:53→21:13)
[2017-12-24] MEDS: NICOTINE 21 MG/24 HOURS TOPICAL PATCH TD SCH (09:53)
[2017-12-24] MEDS: LISINOPRIL 20 MG TABLET (FP) PO SCH ×2 (09:54→21:13)
[2017-12-24] MEDS: ESCITALOPRAM OXALATE 10 MG TABLET (FP) PO SCH (09:54)
[2017-12-24] MEDS: LIDOCAINE 5% TOPICAL PATCH TP SCH (09:54)
[2017-12-24] MEDS: CEPHALEXIN MONOHYDRATE 500 MG CAPSULE (UD) PO SCH ×2 (09:54→21:13)
[2017-12-24] MEDS: TETRAHYDROZOLINE HCL EYE DROPS OU PRN (09:54)
[2017-12-24] MEDS: amLODIPine BESYLATE 10 MG TABLET (FP) PO SCH (09:55)
[2017-12-24] MEDS: hydrOXYzine PAMOATE 50 MG CAPSULE (FP) PO PRN ×2 (09:55→13:49)
[2017-12-24] MEDS: METOPROLOL TARTRATE 25 MG TABLET (FP) PO SCH (09:55)
[2017-12-24] MEDS: PRENATAL VITAMINS W/ FOLIC ACID TABLET (FP) PO SCH (09:55)
[2017-12-24] MEDS: NICOTINE POLACRILEX 4 MG GUM BUC PRN ×3 (09:55→17:27)
[2017-12-24] MEDS: THIAMINE HCL 100 MG TABLET (FP) PO SCH (21:13)
[2017-12-24] MEDS: QUEtiapine FUMARATE 100 MG TABLET (FP) PO SCH (21:13)
[2017-12-24] MEDS: MELATONIN 5 MG TABLETS PO PRN (21:13)
[2017-12-24] MEDS: LIDOCAINE PATCH REMOVAL MC SCH (21:14)
[2017-12-25] MEDS: METHADONE HCL 10 MG TABLET PO SCH (06:10)
[2017-12-25] MEDS: CYCLOBENZAPRINE HCL 10 MG TABLET (FP) PO SCH ×3 (06:10→21:18)
[2017-12-25] MEDS: NICOTINE 21 MG/24 HOURS TOPICAL PATCH TD SCH (10:10)
[2017-12-25] MEDS: LIDOCAINE 5% TOPICAL PATCH TP SCH (10:10)
[2017-12-25] MEDS: PRENATAL VITAMINS W/ FOLIC ACID TABLET (FP) PO SCH (10:11)
[2017-12-25] MEDS: amLODIPine BESYLATE 10 MG TABLET (FP) PO SCH (10:11)
[2017-12-25] MEDS: METOPROLOL TARTRATE 25 MG TABLET (FP) PO SCH (10:11)
[2017-12-25] MEDS: CEPHALEXIN MONOHYDRATE 500 MG CAPSULE (UD) PO SCH ×2 (10:11→21:18)
[2017-12-25] MEDS: ESCITALOPRAM OXALATE 10 MG TABLET (FP) PO SCH (10:11)
[2017-12-25] MEDS: BACITRACIN 0.9 GM PACKET TP SCH ×2 (10:11→21:17)
[2017-12-25] MEDS: LISINOPRIL 20 MG TABLET (FP) PO SCH ×2 (10:11→21:18)
[2017-12-25] MEDS: NICOTINE POLACRILEX 4 MG GUM BUC PRN (10:12)
[2017-12-25] MEDS: hydrOXYzine PAMOATE 50 MG CAPSULE (FP) PO PRN ×3 (10:12→21:17)
[2017-12-25] MEDS: TETRAHYDROZOLINE HCL EYE DROPS OU PRN (10:12)
[2017-12-25] MEDS: THIAMINE HCL 100 MG TABLET (FP) PO SCH (21:17)
[2017-12-25] MEDS: CEPHALEXIN MONOHYDRATE 500 MG CAPSULE (UD) PO ONE (21:18)
[2017-12-25] MEDS: LIDOCAINE PATCH REMOVAL MC SCH (21:18)
[2017-12-25] MEDS: QUEtiapine FUMARATE 100 MG TABLET (FP) PO SCH (21:18)
[2017-12-26] MEDS: METHADONE HCL 10 MG TABLET PO SCH (06:05)
[2017-12-26] MEDS: CYCLOBENZAPRINE HCL 10 MG TABLET (FP) PO SCH ×3 (06:05→21:09)
[2017-12-26] MEDS: ESCITALOPRAM OXALATE 10 MG TABLET (FP) PO SCH (09:09)
[2017-12-26] MEDS: LISINOPRIL 20 MG TABLET (FP) PO SCH ×2 (09:09→21:09)
[2017-12-26] MEDS: amLODIPine BESYLATE 10 MG TABLET (FP) PO SCH (09:09)
[2017-12-26] MEDS: TETRAHYDROZOLINE HCL EYE DROPS OU PRN ×2 (09:09→21:12)
[2017-12-26] MEDS: PRENATAL VITAMINS W/ FOLIC ACID TABLET (FP) PO SCH (09:09)
[2017-12-26] MEDS: CEPHALEXIN MONOHYDRATE 500 MG CAPSULE (UD) PO SCH ×2 (09:09→21:09)
[2017-12-26] MEDS: METOPROLOL TARTRATE 25 MG TABLET (FP) PO SCH (09:10)
[2017-12-26] MEDS: NICOTINE 21 MG/24 HOURS TOPICAL PATCH TD SCH (09:10)
[2017-12-26] MEDS: LIDOCAINE 5% TOPICAL PATCH TP SCH (09:10)
[2017-12-26] MEDS: hydrOXYzine PAMOATE 50 MG CAPSULE (FP) PO PRN ×3 (09:10→21:09)
[2017-12-26] MEDS: BACITRACIN 0.9 GM PACKET TP SCH ×2 (09:10→21:09)
[2017-12-26] MEDS: NICOTINE POLACRILEX 4 MG GUM BUC PRN ×2 (09:15→14:03)
[2017-12-26] MEDS: THIAMINE HCL 100 MG TABLET (FP) PO SCH (21:08)
[2017-12-26] MEDS: LIDOCAINE PATCH REMOVAL MC SCH (21:09)
[2017-12-26] MEDS: QUEtiapine FUMARATE 100 MG TABLET (FP) PO SCH (21:09)
[2017-12-26] MEDS ORDERED: PT OWN MED DRAWER 7, Y5N ONE (21:11)
[2017-12-27] MEDS: METHADONE HCL 10 MG TABLET PO SCH (06:12)
[2017-12-27] MEDS: CYCLOBENZAPRINE HCL 10 MG TABLET (FP) PO SCH ×3 (06:12→21:06)
[2017-12-27] MEDS: LIDOCAINE 5% TOPICAL PATCH TP SCH (10:24)
[2017-12-27] MEDS: BACITRACIN 0.9 GM PACKET TP SCH ×2 (10:24→21:06)
[2017-12-27] MEDS: COLLOIDAL OATMEAL 1 BAR EACH TP PRN (10:24)
[2017-12-27] MEDS: NICOTINE 21 MG/24 HOURS TOPICAL PATCH TD SCH (10:24)
[2017-12-27] MEDS: LISINOPRIL 20 MG TABLET (FP) PO SCH ×2 (10:25→21:06)
[2017-12-27] MEDS: PRENATAL VITAMINS W/ FOLIC ACID TABLET (FP) PO SCH (10:25)
[2017-12-27] MEDS: hydrOXYzine PAMOATE 50 MG CAPSULE (FP) PO PRN ×3 (10:25→21:06)
[2017-12-27] MEDS: METOPROLOL TARTRATE 25 MG TABLET (FP) PO SCH (10:25)
[2017-12-27] MEDS: CEPHALEXIN MONOHYDRATE 500 MG CAPSULE (UD) PO SCH ×2 (10:25→21:06)
[2017-12-27] MEDS: amLODIPine BESYLATE 10 MG TABLET (FP) PO SCH (10:25)
[2017-12-27] MEDS: TETRAHYDROZOLINE HCL EYE DROPS OU PRN ×2 (10:26→21:08)
[2017-12-27] MEDS: ESCITALOPRAM OXALATE 10 MG TABLET (FP) PO SCH (10:26)
[2017-12-27] MEDS: NICOTINE POLACRILEX 4 MG GUM BUC PRN ×3 (10:27→17:55)
[2017-12-27] MEDS: LIDOCAINE PATCH REMOVAL MC SCH (21:06)
[2017-12-27] MEDS: THIAMINE HCL 100 MG TABLET (FP) PO SCH (21:06)
[2017-12-27] MEDS: QUEtiapine FUMARATE 100 MG TABLET (FP) PO SCH (21:06)
[2017-12-27] MEDS: MELATONIN 5 MG TABLETS PO PRN (21:07)
[2017-12-27] MEDS ORDERED: PT OWN MED DRAWER 7, Y5N ONE (21:08)
[2017-12-28] MEDS: METHADONE HCL 10 MG TABLET PO SCH (06:26)
[2017-12-28] MEDS: CYCLOBENZAPRINE HCL 10 MG TABLET (FP) PO SCH ×3 (06:27→21:04)
[2017-12-28] MEDS ORDERED: PT OWN MED DRAWER 7, Y5N ONE (08:27)
[2017-12-28] MEDS: BACITRACIN 0.9 GM PACKET TP SCH ×2 (09:14→21:04)
[2017-12-28] MEDS: NICOTINE 21 MG/24 HOURS TOPICAL PATCH TD SCH (09:15)
[2017-12-28] MEDS: METOPROLOL TARTRATE 25 MG TABLET (FP) PO SCH (09:15)
[2017-12-28] MEDS: ESCITALOPRAM OXALATE 10 MG TABLET (FP) PO SCH (09:15)
[2017-12-28] MEDS: PRENATAL VITAMINS W/ FOLIC ACID TABLET (FP) PO SCH (09:15)
[2017-12-28] MEDS: LIDOCAINE 5% TOPICAL PATCH TP SCH (09:15)
[2017-12-28] MEDS: amLODIPine BESYLATE 10 MG TABLET (FP) PO SCH (09:16)
[2017-12-28] MEDS: NICOTINE POLACRILEX 4 MG GUM BUC PRN ×2 (09:16→13:46)
[2017-12-28] MEDS: LISINOPRIL 20 MG TABLET (FP) PO SCH ×2 (09:16→21:04)
[2017-12-28] MEDS: hydrOXYzine PAMOATE 50 MG CAPSULE (FP) PO PRN ×3 (09:16→17:45)
[2017-12-28] MEDS: TETRAHYDROZOLINE HCL EYE DROPS OU PRN (09:16)
[2017-12-28] MEDS: IBUPROFEN 400 MG TABLET (FP) PO PRN (11:06)
[2017-12-28] MEDS: THIAMINE HCL 100 MG TABLET (FP) PO SCH (21:04)
[2017-12-28] MEDS: QUEtiapine FUMARATE 100 MG TABLET (FP) PO SCH (21:04)
[2017-12-28] MEDS: LIDOCAINE PATCH REMOVAL MC SCH (21:05)
[2017-12-28] MEDS: MELATONIN 5 MG TABLETS PO PRN (21:05)
[2017-12-29] MEDS: METHADONE HCL 10 MG TABLET PO SCH (06:10)
[2017-12-29] MEDS: CYCLOBENZAPRINE HCL 10 MG TABLET (FP) PO SCH ×3 (06:10→21:19)
[2017-12-29] MEDS: ESCITALOPRAM OXALATE 10 MG TABLET (FP) PO SCH (09:59)
[2017-12-29] MEDS: TETRAHYDROZOLINE HCL EYE DROPS OU PRN (09:59)
[2017-12-29] MEDS: LIDOCAINE 5% TOPICAL PATCH TP SCH (09:59)
[2017-12-29] MEDS: BACITRACIN 0.9 GM PACKET TP SCH ×2 (09:59→21:18)
[2017-12-29] MEDS: NICOTINE 21 MG/24 HOURS TOPICAL PATCH TD SCH (09:59)
[2017-12-29] MEDS: amLODIPine BESYLATE 10 MG TABLET (FP) PO SCH (09:59)
[2017-12-29] MEDS: METOPROLOL TARTRATE 25 MG TABLET (FP) PO SCH (09:59)
[2017-12-29] MEDS: PRENATAL VITAMINS W/ FOLIC ACID TABLET (FP) PO SCH (09:59)
[2017-12-29] MEDS: LISINOPRIL 20 MG TABLET (FP) PO SCH ×2 (09:59→21:19)
[2017-12-29] MEDS: hydrOXYzine PAMOATE 50 MG CAPSULE (FP) PO PRN ×3 (10:00→21:19)
[2017-12-29] MEDS: NICOTINE POLACRILEX 4 MG GUM BUC PRN ×2 (10:01→14:02)
[2017-12-29] MEDS: MELATONIN 5 MG TABLETS PO PRN (21:19)
[2017-12-29] MEDS: THIAMINE HCL 100 MG TABLET (FP) PO SCH (21:19)
[2017-12-29] MEDS: QUEtiapine FUMARATE 100 MG TABLET (FP) PO SCH (21:19)
[2017-12-29] MEDS: LIDOCAINE PATCH REMOVAL MC SCH (21:20)
[2017-12-30] MEDS: CYCLOBENZAPRINE HCL 10 MG TABLET (FP) PO SCH ×3 (06:07→21:09)
[2017-12-30] MEDS: METHADONE HCL 10 MG TABLET PO SCH (06:32)
[2017-12-30] MEDS: amLODIPine BESYLATE 10 MG TABLET (FP) PO SCH (10:04)
[2017-12-30] MEDS: ESCITALOPRAM OXALATE 10 MG TABLET (FP) PO SCH (10:04)
[2017-12-30] MEDS: TETRAHYDROZOLINE HCL EYE DROPS OU PRN (10:04)
[2017-12-30] MEDS: hydrOXYzine PAMOATE 50 MG CAPSULE (FP) PO PRN ×2 (10:04→21:09)
[2017-12-30] MEDS: LIDOCAINE 5% TOPICAL PATCH TP SCH (10:04)
[2017-12-30] MEDS: LISINOPRIL 20 MG TABLET (FP) PO SCH ×2 (10:04→21:09)
[2017-12-30] MEDS: BACITRACIN 0.9 GM PACKET TP SCH ×2 (10:04→21:09)
[2017-12-30] MEDS: METOPROLOL TARTRATE 25 MG TABLET (FP) PO SCH (10:04)
[2017-12-30] MEDS: PRENATAL VITAMINS W/ FOLIC ACID TABLET (FP) PO SCH (10:04)
[2017-12-30] MEDS: NICOTINE 21 MG/24 HOURS TOPICAL PATCH TD SCH (10:05)
[2017-12-30] MEDS: IBUPROFEN 400 MG TABLET (FP) PO PRN (11:58)
[2017-12-30] MEDS: NICOTINE POLACRILEX 4 MG GUM BUC PRN ×2 (14:45→17:49)
[2017-12-30] MEDS: QUEtiapine FUMARATE 100 MG TABLET (FP) PO SCH (21:09)
[2017-12-30] MEDS: THIAMINE HCL 100 MG TABLET (FP) PO SCH (21:09)
[2017-12-30] MEDS: MELATONIN 5 MG TABLETS PO PRN (21:11)
[2017-12-30] MEDS: LIDOCAINE PATCH REMOVAL MC SCH (21:11)
[2017-12-30] MEDS: COLLOIDAL OATMEAL 1 BAR EACH TP PRN (21:53)
[2017-12-31] MEDS: METHADONE HCL 10 MG TABLET PO SCH (06:36)
[2017-12-31] MEDS: CYCLOBENZAPRINE HCL 10 MG TABLET (FP) PO SCH ×3 (06:37→21:00)
[2017-12-31] MEDS: LIDOCAINE 5% TOPICAL PATCH TP SCH (09:21)
[2017-12-31] MEDS: BACITRACIN 0.9 GM PACKET TP SCH ×2 (09:21→21:50)
[2017-12-31] MEDS: ESCITALOPRAM OXALATE 10 MG TABLET (FP) PO SCH (09:21)
[2017-12-31] MEDS: PRENATAL VITAMINS W/ FOLIC ACID TABLET (FP) PO SCH (09:22)
[2017-12-31] MEDS: METOPROLOL TARTRATE 25 MG TABLET (FP) PO SCH (09:22)
[2017-12-31] MEDS: NICOTINE 21 MG/24 HOURS TOPICAL PATCH TD SCH (09:22)
[2017-12-31] MEDS: TETRAHYDROZOLINE HCL EYE DROPS OU PRN ×2 (09:23→20:58)
[2017-12-31] MEDS: NICOTINE POLACRILEX 4 MG GUM BUC PRN ×2 (09:23→13:14)
[2017-12-31] MEDS: amLODIPine BESYLATE 10 MG TABLET (FP) PO SCH (09:23)
[2017-12-31] MEDS: LISINOPRIL 20 MG TABLET (FP) PO SCH ×2 (09:23→21:00)
[2017-12-31] MEDS: hydrOXYzine PAMOATE 50 MG CAPSULE (FP) PO PRN ×3 (09:23→20:58)
[2017-12-31] MEDS ORDERED: PT OWN MED DRAWER 7, Y5N ONE ×2 (20:35→21:55)
[2017-12-31] MEDS: MELATONIN 5 MG TABLETS PO PRN (20:58)
[2017-12-31] MEDS: QUEtiapine FUMARATE 100 MG TABLET (FP) PO SCH (21:00)
[2017-12-31] MEDS: LIDOCAINE PATCH REMOVAL MC SCH (21:00)
[2017-12-31] MEDS: THIAMINE HCL 100 MG TABLET (FP) PO SCH (21:50)
[2018-01-01] MEDS: METHADONE HCL 10 MG TABLET PO SCH (06:34)
[2018-01-01] MEDS: CYCLOBENZAPRINE HCL 10 MG TABLET (FP) PO SCH ×3 (06:35→21:00)
[2018-01-01] MEDS: ESCITALOPRAM OXALATE 10 MG TABLET (FP) PO SCH (09:48)
[2018-01-01] MEDS: BACITRACIN 0.9 GM PACKET TP SCH ×2 (09:48→21:00)
[2018-01-01] MEDS: LISINOPRIL 20 MG TABLET (FP) PO SCH ×2 (09:49→21:00)
[2018-01-01] MEDS: LIDOCAINE 5% TOPICAL PATCH TP SCH (09:49)
[2018-01-01] MEDS: METOPROLOL TARTRATE 25 MG TABLET (FP) PO SCH (09:49)
[2018-01-01] MEDS: hydrOXYzine PAMOATE 50 MG CAPSULE (FP) PO PRN ×3 (09:49→21:00)
[2018-01-01] MEDS: PRENATAL VITAMINS W/ FOLIC ACID TABLET (FP) PO SCH (09:49)
[2018-01-01] MEDS: amLODIPine BESYLATE 10 MG TABLET (FP) PO SCH (09:49)
[2018-01-01] MEDS: NICOTINE POLACRILEX 4 MG GUM BUC PRN ×3 (09:50→21:00)
[2018-01-01] MEDS: TETRAHYDROZOLINE HCL EYE DROPS OU PRN (09:50)
[2018-01-01] MEDS: NICOTINE 21 MG/24 HOURS TOPICAL PATCH TD SCH (09:58)
[2018-01-01] MEDS: THIAMINE HCL 100 MG TABLET (FP) PO SCH (21:00)
[2018-01-01] MEDS: MELATONIN 5 MG TABLETS PO PRN (21:00)
[2018-01-01] MEDS: QUEtiapine FUMARATE 100 MG TABLET (FP) PO SCH (21:00)
[2018-01-01] MEDS: LIDOCAINE PATCH REMOVAL MC SCH (22:49)
[2018-01-02] MEDS: METHADONE HCL 10 MG TABLET PO SCH (06:10)
[2018-01-02] MEDS: CYCLOBENZAPRINE HCL 10 MG TABLET (FP) PO SCH ×3 (06:11→21:06)
[2018-01-02] MEDS: NICOTINE 21 MG/24 HOURS TOPICAL PATCH TD SCH (09:59)
[2018-01-02] MEDS: hydrOXYzine PAMOATE 50 MG CAPSULE (FP) PO PRN ×3 (10:00→21:08)
[2018-01-02] MEDS: NICOTINE POLACRILEX 4 MG GUM BUC PRN ×2 (10:00→21:08)
[2018-01-02] MEDS: amLODIPine BESYLATE 10 MG TABLET (FP) PO SCH (10:00)
[2018-01-02] MEDS: PRENATAL VITAMINS W/ FOLIC ACID TABLET (FP) PO SCH (10:00)
[2018-01-02] MEDS: METOPROLOL TARTRATE 25 MG TABLET (FP) PO SCH (10:00)
[2018-01-02] MEDS: LISINOPRIL 20 MG TABLET (FP) PO SCH ×2 (10:00→21:06)
[2018-01-02] MEDS: ESCITALOPRAM OXALATE 10 MG TABLET (FP) PO SCH (10:00)
[2018-01-02] MEDS: BACITRACIN 0.9 GM PACKET TP SCH ×2 (10:00→21:07)
[2018-01-02] MEDS: TETRAHYDROZOLINE HCL EYE DROPS OU PRN (10:01)
[2018-01-02] MEDS ORDERED: PT OWN MED DRAWER 7, Y5N ONE (10:01)
[2018-01-02] MEDS: LIDOCAINE 5% TOPICAL PATCH TP SCH (10:04)
[2018-01-02] MEDS: IBUPROFEN 400 MG TABLET (FP) PO PRN (11:47)
[2018-01-02] MEDS: QUEtiapine FUMARATE 100 MG TABLET (FP) PO SCH (21:06)
[2018-01-02] MEDS: THIAMINE HCL 100 MG TABLET (FP) PO SCH (21:06)
[2018-01-02] MEDS: LIDOCAINE PATCH REMOVAL MC SCH (21:07)
[2018-01-02] MEDS: TETRAHYDROZOLINE HCL EYE DROPS OU SCH (21:08)
[2018-01-03] MEDS: CYCLOBENZAPRINE HCL 10 MG TABLET (FP) PO SCH ×3 (06:18→21:12)
[2018-01-03] MEDS: METHADONE HCL 10 MG TABLET PO SCH (06:18)
[2018-01-03] MEDS: NICOTINE POLACRILEX 4 MG GUM BUC PRN ×3 (10:29→17:51)
[2018-01-03] MEDS: NICOTINE 21 MG/24 HOURS TOPICAL PATCH TD SCH (10:29)
[2018-01-03] MEDS: COLLOIDAL OATMEAL 1 BAR EACH TP PRN (10:29)
[2018-01-03] MEDS: ESCITALOPRAM OXALATE 10 MG TABLET (FP) PO SCH (10:30)
[2018-01-03] MEDS: BACITRACIN 0.9 GM PACKET TP SCH ×2 (10:30→21:12)
[2018-01-03] MEDS: hydrOXYzine PAMOATE 50 MG CAPSULE (FP) PO PRN ×2 (10:30→14:32)
[2018-01-03] MEDS: METOPROLOL TARTRATE 25 MG TABLET (FP) PO SCH (10:30)
[2018-01-03] MEDS: LIDOCAINE 5% TOPICAL PATCH TP SCH (10:30)
[2018-01-03] MEDS: LISINOPRIL 20 MG TABLET (FP) PO SCH ×2 (10:30→21:12)
[2018-01-03] MEDS: amLODIPine BESYLATE 10 MG TABLET (FP) PO SCH (10:30)
[2018-01-03] MEDS: PRENATAL VITAMINS W/ FOLIC ACID TABLET (FP) PO SCH (10:31)
[2018-01-03] MEDS: TETRAHYDROZOLINE HCL EYE DROPS OU SCH ×2 (10:47→21:13)
[2018-01-03] MEDS ORDERED: PT OWN MED DRAWER 7, Y5N ONE (11:46)
[2018-01-03] MEDS: QUEtiapine FUMARATE 100 MG TABLET (FP) PO SCH (21:12)
[2018-01-03] MEDS: THIAMINE HCL 100 MG TABLET (FP) PO SCH (21:12)
[2018-01-03] MEDS: MELATONIN 5 MG TABLETS PO PRN (21:13)
[2018-01-03] MEDS: LIDOCAINE PATCH REMOVAL MC SCH (21:13)
[2018-01-04] MEDS: CYCLOBENZAPRINE HCL 10 MG TABLET (FP) PO SCH ×3 (06:47→21:19)
[2018-01-04] MEDS: METHADONE HCL 10 MG TABLET PO SCH (06:47)
[2018-01-04] MEDS ORDERED: PT OWN MED DRAWER 7, Y5N ONE (08:57)
[2018-01-04] MEDS: BACITRACIN 0.9 GM PACKET TP SCH ×2 (10:12→21:18)
[2018-01-04] MEDS: ESCITALOPRAM OXALATE 10 MG TABLET (FP) PO SCH (10:12)
[2018-01-04] MEDS: NICOTINE 21 MG/24 HOURS TOPICAL PATCH TD SCH (10:13)
[2018-01-04] MEDS: amLODIPine BESYLATE 10 MG TABLET (FP) PO SCH (10:13)
[2018-01-04] MEDS: TETRAHYDROZOLINE HCL EYE DROPS OU SCH ×2 (10:13→21:19)
[2018-01-04] MEDS: LISINOPRIL 20 MG TABLET (FP) PO SCH ×2 (10:13→21:19)
[2018-01-04] MEDS: PRENATAL VITAMINS W/ FOLIC ACID TABLET (FP) PO SCH (10:13)
[2018-01-04] MEDS: METOPROLOL TARTRATE 25 MG TABLET (FP) PO SCH (10:13)
[2018-01-04] MEDS: LIDOCAINE 5% TOPICAL PATCH TP SCH (10:13)
[2018-01-04] MEDS: hydrOXYzine PAMOATE 50 MG CAPSULE (FP) PO PRN ×3 (10:14→21:18)
[2018-01-04] MEDS: NICOTINE POLACRILEX 4 MG GUM BUC PRN ×2 (10:15→13:43)
[2018-01-04] MEDS: LIDOCAINE PATCH REMOVAL MC SCH (21:19)
[2018-01-04] MEDS: QUEtiapine FUMARATE 100 MG TABLET (FP) PO SCH (21:19)
[2018-01-04] MEDS: MELATONIN 5 MG TABLETS PO PRN (21:20)
[2018-01-04] MEDS: THIAMINE HCL 100 MG TABLET (FP) PO SCH (21:21)
[2018-01-05] MEDS: CYCLOBENZAPRINE HCL 10 MG TABLET (FP) PO SCH (06:17)
[2018-01-05] MEDS: METHADONE HCL 10 MG TABLET PO SCH (06:17)
[2018-01-05 06:37] VITALS: TEMP 97.4
[2018-01-05] MEDS ORDERED: PT OWN MED DRAWER 7, Y5N ONE (08:29)
[2018-01-05 09:17] VITALS: BP 120/85; PULSE 84
[2018-01-05] MEDS: ESCITALOPRAM OXALATE 10 MG TABLET (FP) PO SCH (09:31)
[2018-01-05] MEDS: amLODIPine BESYLATE 10 MG TABLET (FP) PO SCH (09:31)
[2018-01-05] MEDS: METOPROLOL TARTRATE 25 MG TABLET (FP) PO SCH (09:31)
[2018-01-05] MEDS: PRENATAL VITAMINS W/ FOLIC ACID TABLET (FP) PO SCH (09:31)
[2018-01-05] MEDS: LISINOPRIL 20 MG TABLET (FP) PO SCH (09:31)
--- NOTE | 2018-01-05 09:31 | PN ---
[facility] Progress Note Note: Patient completed this program today.She has met her treatment plan and will continue to address her treatment on outpatient basis.Patient is stable for discharge today.
[2018-01-05] MEDS: TETRAHYDROZOLINE HCL EYE DROPS OU SCH (09:32)
[2018-01-05] MEDS: NICOTINE 21 MG/24 HOURS TOPICAL PATCH TD SCH (09:32)
[2018-01-05] MEDS: hydrOXYzine PAMOATE 50 MG CAPSULE (FP) PO PRN (09:32)
[2018-01-05] MEDS: LIDOCAINE 5% TOPICAL PATCH TP SCH (09:32)
[2018-01-05] MEDS: BACITRACIN 0.9 GM PACKET TP SCH (09:35)
== END 2018-01-05 09:42 | disposition home or self-care (01) | DRG 772 ==
LOC: YASAS 11:39 → Y3E 11:41
PROVIDERS: ADMIT Psychiatry & Neurology Psychiatry; ATTEND Psychiatry & Neurology Psychiatry
PROC: HZ42ZZZ Group Counseling for Substance Abuse Treatment, Cognitive-Behavioral (ICD-10-PCS; principal; 2017-12-16)
DX: F11.20 Opioid dependence, uncomplicated (principal); F17.210 Nicotine dependence, cigarettes, uncomplicated; F19.24 Other psychoactive substance dependence with psychoactive substance-induced mood disorder; F31.9 Bipolar disorder, unspecified; F60.3 Borderline personality disorder; I10 Essential (primary) hypertension; B18.2 Chronic viral hepatitis C; H04.129 Dry eye syndrome of unspecified lacrimal gland; L02.414 Cutaneous abscess of left upper limb

== ENCOUNTER 2019-10-03 10:07 | Inpatient (IN) | payer OTHER ==
--- NOTE | 2019-10-03 11:32 | BHS.RME ---
Substance Use & Tx History - Substance Use History Heroin Substance amount: 2 bags Frequency of use: Less than 3 times per week Substance route: Injection (ex: intravenous or skin popping) Date of Last Use: 10/01/19 (First use age 22 y. No OD, has Narcan at home) Cocaine-Crack Substance amount: $20 Frequency of use: More than 3 times per week Substance route: Smoking Date of Last Use: 10/02/19 (First use age 22 y) Xanax Substance amount: 2 mg x 3 tabs Frequency of use: Daily Substance route: Oral Date of Last Use: 10/03/19 (First use in her 30s) Nicotine Substance amount: one ppd Frequency of use: Daily Substance route: Smoking Date of Last Use: 10/03/19 (First use age 13 y) - Last Treatment Date of last treatment: Nov to Dec 2017 Where was last treatment: Rehab Physical/Psych/Mental Status - Behavior General Behavior: Increased activity (restlessness, agitation) Eye Contact: Normal - Cooperativeness Cooperativeness: Cooperative - Thinking Thought Processes: Tight Thought content: Future oriented - Physical Health Problems Is patient presently having any pain?: Yes (leg cramps) Does patient presently have any injuries (include location): No Does patient currently have a fever: No CIWA Nausea/Vomitin-No Nausea/No Vomiting Muscle Tremors: None Anxiety: 4-Mod. Anxious/Guarded Agitation: 3 Paroxysmal Sweats: 3 Orientation: 2-Disoriented Date<2 days Tacttile Disturbances: 0-None Auditory Disturbances: 0-None Visual Disturbances: 0-None Headache: 0-None Present CIWA-Ar Total Score: 12
[2019-10-03 12:04] VITALS: BMI 27.4
--- NOTE | 2019-10-03 12:39 | HP ---
CIWA Score Nausea/Vomitin-No Nausea/No Vomiting Muscle Tremors: None Anxiety: 4-Mod. Anxious/Guarded Agitation: 3 Paroxysmal Sweats: 3 Orientation: 2-Disoriented Date<2 days Tacttile Disturbances: 0-None Auditory Disturbances: 0-None Visual Disturbances: 0-None Headache: 0-None Present CIWA-Ar Total Score: 12 - Admission Criteria [facility]ASAS Guidelines: Admission for Medically Managed Detox: Requires at least one of the followin. CIWA greater than 12 2. Seizures within the past 24 hours 3. Delirium tremens within the past 24 hours 4. Hallucinations within the past 24 hours 5. Acute intervention needed for co occurring medical disorder 6. Acute intervention needed for co occurring psychiatric disorder 7. Severe withdrawal that cannot be handled at a lower level of care (continued vomiting, continued diarrhea, abnormal vital signs) requiring intravenous medication and/or fluids 8. Admitting History and Physical - Admission Chief Complaint: Ms. Lowery is a 44 yo woman who presents to [facility] requesting detox from Xanax. History of Present Illness: Ms. Lowery is a 44 yo woman who presents to [facility] requesting detox from [facility]. She is on a methadone maintenance program. PMH: HTN, untreated Hep C, skin abscesses from skin popping: bilateral forearms PSH: Lung abscess, chest tubes 2003 Psych: none SOC: in her own place Legal: none - Substance Use History Heroin Substance amount: 2 bags Frequency of use: Less than 3 times per week Substance route: Injection (ex: intravenous or skin popping) Date of Last Use: 10/01/19 (First use age 22 y. No OD, has Narcan at home) Cocaine-Crack Substance amount: $20 Frequency of use: More than 3 times per week Substance route: Smoking Date of Last Use: 10/02/19 (First use age 22 y) Xanax Substance amount: 2 mg x 3 tabs Frequency of use: Daily Substance route: Oral Date of Last Use: 10/03/19 (First use in her 30s) Nicotine Substance amount: one ppd Frequency of use: Daily Substance route: Smoking Date of Last Use: 10/03/19 (First use age 13 y) - Last Treatment Date of last treatment: Nov to Dec 2017 Where was last treatment: Rehab History Source: Patient Limitations to Obtaining History: No Limitations - Past Medical History ...LMP: 09/29/19 ...: No - Smoking History Smoking history: Current every day smoker Have you smoked in the past 12 months: Yes Aproximately how many cigarettes per day: 20 - Alcohol/Substance Use Hx Alcohol Use: Yes (drinking since childhood,heavy drinker since april 2017) Admission ROS S - HPI Allergies/Adverse Reactions: Allergies Allergy/AdvReac Type Severity Reaction Status Date / Time haloperidol [From Haldol] AdvReac stiffness Verified 10/03/19 11:59 haloperidol lactate AdvReac stiffness Verified 10/03/19 11:59 [From Haldol] Exam Limitations: No Limitations - Ebola screening Have you traveled outside of the country in the last 21 days: No Have you been sick,other than usual withdrawal symptoms: No Do you have a fever: No - Review of Systems Constitutional: No Symptoms Reported EENT: reports: No Symptoms Reported Respiratory: reports: Shortness of Breath (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), Wheezing Cardiac: reports: No Symptoms Reported GI: reports: No Symptoms Reported : reports: Incontinence (dribbles urine) Musculoskeletal: reports: Back Pain Integumentary: reports: Other (chronic skin scars from injection of drugs: arms and legs) Neuro: reports: No Symptoms reported Hematology: reports: No Symptoms Reported Psychiatric: reports: Anxious Patient History - Patient Medical History Hx Anemia: Yes Hx Asthma: No Hx Chronic Obstructive Pulmonary Disease (COPD): No Hx Cancer: No Hx Cardiac Disorders: No Hx Congestive Heart Failure: No Hx Hypertension: Yes (non compliant) Hx Hypercholesterolemia: No Hx Pacemaker: No HX Cerebrovascular Accident: No Hx Seizures: No Hx Dementia: No Hx Diabetes: No Hx Gastrointestinal Disorders: No Hx Liver Disease: Yes (Hep C) Hx Genitourinary Disorders: No Hx Sexually Transmitted Disorders: No Hx Renal Disease (ESRD): No Hx Thyroid Disease: No Hx Human Immunodeficiency Virus (HIV): No (LAST 11/13 NEGATIVE) Hx Hepatitis C: Yes (NOT TREATED) Hx Depression: Yes Hx Suicide Attempt: No Hx Bipolar Disorder: No Hx Schizophrenia: No - Patient Surgical History Past Surgical History: Yes Hx Neurologic Surgery: No Hx Cataract Extraction: No Hx Cardiac Surgery: No Hx Lung Surgery: Yes (Lung drainage x 10 years ago) Hx Breast Surgery: No Hx Breast Biopsy: No Hx Abdominal Surgery: Yes (OPEN CHOLECYSTECTOMY IN 2008) Hx Appendectomy: No Hx Cholecystectomy: No Hx Genitourinary Surgery: No Hx Section: No Hx Orthopedic Surgery: No Other Surgical History: abscess incised a 2 months ago,drainage of abscess of left lung in 2004 Anesthesia Reaction: No - PPD History Previous Implant?: Yes Documented Results: Positive w/o proof Implanted On Prior [facility] Admission?: No Results: CXR neg 11/15 - Reproductive History Last Menstrual Period: 09/29/19 Patient : No - Smoking Cessation Smoking history: Current every day smoker Have you smoked in the past 12 months: Yes Aproximately how many cigarettes per day: 20 Cigars Per Day: 0 Hx Chewing Tobacco Use: No Initiated information on smoking cessation: Yes 'Breaking Loose' booklet given: 10/03/19 - Substances abused Heroin Substance route: Injection Frequency: 3-6 times per week Amount used: 2 bags Age of first use: 52 Date of last use: 10/01/19 Crack Substance route: Smoking Frequency: Daily Amount used: $20 Age of first use: 22 Date of last use: 10/02/19 Alprazolam (Xanax) Substance route: Oral Frequency: Daily Amount used: 6mg Age of first use: 28 Date of last use: 10/03/19 Admission Physical Exam [facility] - Vital Signs Vital Signs: Vital Signs - 24 hr 10/03/19 12:00 Temperature 98.0 F Pulse Rate 65 Respiratory 18 Rate Blood Pressure 185/109 H - Physical General Appearance: Yes: No Apparent Distress, Nourished, Appropriately Dressed HEENTM: Yes: EOMI, Hearing grossly Normal, Normocephalic, Normal Voice Respiratory: Yes: Lungs Clear, Normal Breath Sounds, No Respiratory Distress, No Accessory Muscle Use, Surgical Scar (left posterior axilla inferior crescentic) Breast: Yes: Breast Exam Deferred Cardiology: Yes: Regular Rhythm, Regular Rate, S1, S2 Abdominal: Yes: Normal Bowel Sounds, Flat, Tenderness (mild diffuse) Genitourinary: Yes: Other (deferred) Back: Yes: Normal Inspection Musculoskeletal: Yes: Gait Steady Extremities: Yes: Non-Tender Neurological: Yes: Alert, Normal Response Integumentary: Yes: Other (skin popping bilateral arms and legs) - Diagnostic (1) Benzodiazepine dependence Current Visit: Yes Status: Acute (2) Cocaine dependence, uncomplicated Current Visit: Yes Status: Acute (3) HTN (hypertension) Current Visit: Yes Status: Chronic Qualifiers: Hypertension type: essential hypertension Qualified Code(s): I10 - E ssential (primary) hypertension (4) Methadone maintenance therapy patient Current Visit: Yes Status: Chronic (5) Hepatitis C Current Visit: No Status: Chronic Qualifiers: Cleared for Admission S - Detox or Rehab [facility] Level of Care: Medically Managed Detox Regimen/Protocol: Valium Breathalyzer - Breathalyzer Breathalyzer: 0 Urine Drug Screen - Test Device Lot number: [id number] Expiration date: 10/01/21 - Control Is test valid?: Yes - Results Drug screen NEGATIVE: No Urine drug screen results: KALYAN-Cocaine, FEN-Fentanyl, MOP-Opiates, MTD- Methadone, BZO-Benzodiazepines Inpatient Rehab Admission - Rehab Decision to Admit Inpatient rehab admission?: No
[2019-10-03] MEDS ORDERED: MAG HYDROX/AL HYDROX/SIMETH 30 ML UNIT-DOSE CUP PO PRN (12:42)
[2019-10-03] MEDS ORDERED: BISMUTH SUBSALICYLATE 524 MG/30 ML UD PO PRN (12:42)
[2019-10-03] MEDS ORDERED: ONDANSETRON *ODT* 4 MG TABLET SL PRN (12:42)
[2019-10-03] MEDS ORDERED: NICOTINE POLACRILEX 2 MG GUM BUC PRN (12:42)
[2019-10-03] MEDS ORDERED: MENTHOL/PHENOL 1 EACH UD MM PRN (12:42)
[2019-10-03] MEDS ORDERED: MAGNESIUM HYDROX 2400MG/30ML ORAL SUSPENSION 30 ML CUP PO PRN (12:42)
[2019-10-03] MEDS ORDERED: IBUPROFEN 400 MG TABLET (FP) PO PRN (12:42)
[2019-10-03] MEDS ORDERED: ACETAMINOPHEN 325 MG TABLET (FP) PO PRN ×2 (12:42)
[2019-10-03] MEDS ORDERED: MAGNESIUM CITRATE 300 ML BOTTLE PO PRN (12:42)
[2019-10-03] MEDS: diazePAM 5 MG TABLET PO SCH ×2 (13:28→21:53)
[2019-10-03] MEDS: NICOTINE 21 MG/24 HOURS TOPICAL PATCH TD SCH (13:28)
[2019-10-03] MEDS ORDERED: hydrOXYzine PAMOATE 25 MG CAPSULE (FP) PO SCH (14:00)
--- NOTE | 2019-10-03 14:40 | EKG ---
Test Reason : Blood Pressure : / mmHG Vent. Rate : 065 BPM Atrial Rate : 065 BPM P-R Int : 128 ms QRS Dur : 100 ms QT Int : 446 ms P-R-T Axes : -03 046 -08 degrees QTc Int : 463 ms NORMAL SINUS RHYTHM MINIMAL VOLTAGE CRITERIA FOR LVH, MAY BE NORMAL VARIANT NONSPECIFIC T WAVE ABNORMALITY PROLONGED QT ABNORMAL ECG WHEN COMPARED WITH ECG OF 12-DEC-2017 18:24, NONSPECIFIC T WAVE ABNORMALITY NOW EVIDENT IN INFERIOR LEADS NONSPECIFIC T WAVE ABNORMALITY, WORSE IN ANTEROLATERAL LEADS Confirmed by MD Alexis, Elroy ([id number]) on 10/03/2019 2:40:03 PM Referred By: Confirmed By:Elroy Espinoza MD
[2019-10-03 17:52] LABS: MCH 24.2 pg (25.7-33.7); MCHC 32.4 g/dl (32.0-36.0); MEAN CELL VOLUME 74.6 fl (80-96); MEAN PLT VOLUME 10.2 fl (7.5-11.1); PLATELET COUNT 236 K/MM3 (134-434); RBC 4.56 M/mm3 (3.60-5.2); WHITE BLOOD COUNT 7.2 K/mm3 (4.0-10.0)
[2019-10-03 17:53] LABS: ALBUMIN 3.5 g/dl (3.4-5.0); BLOOD UREA NITROGEN 10.4 mg/dL (7-18); CREATININE 0.9 mg/dL (0.55-1.3); POTASSIUM 4.4 mmol/L (3.5-5.1); TOT PROT 7.7 g/dl (6.4-8.2)
[2019-10-03 17:54] LABS: BILIRUBIN,TOTAL 0.2 mg/dL (0.2-1)
[2019-10-03] MEDS: diazePAM 5 MG TABLET PO PRN (18:26)
[2019-10-03] MEDS: METHOCARBAMOL 500 MG TABLET PO PRN (18:26)
[2019-10-03] MEDS: THIAMINE HCL 100 MG TABLET (FP) PO SCH (21:53)
[2019-10-03] MEDS: MELATONIN 5 MG TABLETS PO SCH (21:53)
[2019-10-04] MEDS: diazePAM 5 MG TABLET PO SCH ×3 (06:19→22:47)
[2019-10-04] MEDS: METHOCARBAMOL 500 MG TABLET PO PRN ×3 (06:21→22:48)
[2019-10-04] MEDS ORDERED: METHADONE 80 MG, METHADONE 30 MG PO ONE (09:56)
[2019-10-04] MEDS ORDERED: METHADONE HCL 10 MG TABLET PO ONE (09:56)
[2019-10-04] MEDS ORDERED: METHADONE HCL 10 MG TABLET ONE (10:49)
[2019-10-04] MEDS ORDERED: METHADONE HCL 40 MG DISPERSABLE TABLET ONE (10:49)
[2019-10-04] MEDS: PRENATAL VITAMINS W/ FOLIC ACID TABLET (FP) PO SCH (10:50)
[2019-10-04] MEDS: NICOTINE 21 MG/24 HOURS TOPICAL PATCH TD SCH (10:51)
--- NOTE | 2019-10-04 12:13 | PN ---
S CIWA - CIWA Score Nausea/Vomitin-No Nausea/No Vomiting Muscle Tremors: 2 Anxiety: 2 Agitation: 3 Paroxysmal Sweats: 2 Orientation: 0-Oriented Tacttile Disturbances: 0-None Auditory Disturbances: 0-None Visual Disturbances: 0-None Headache: 0-None Present CIWA-Ar Total Score: 9 [facility] Progress Note (SOAP) Subjective: sweats restless body aches dry skin Objective: 10/04/19 12:12 Vital Signs Temperature 97.3 F L 10/04/19 05:59 Pulse Rate 70 10/04/19 05:59 Respiratory Rate 20 10/04/19 05:59 Blood Pressure 150/106 H 10/04/19 05:59 O2 Sat by Pulse Oximetry (%) 99 10/04/19 05:59 Laboratory Tests 10/03/19 10/03/19 10/03/19 11:45 12:25 12:25 WBC 7.2 RBC 4.56 Hgb 11.0 Hct 34.0 MCV 74.6 L MCH 24.2 L MCHC 32.4 RDW 19.0 H Plt Count 236 D MPV 10.2 D Sodium 138 Potassium 4.4 Chloride 104 Carbon Dioxide 24 Anion Gap 10 BUN 10.4 Creatinine 0.9 Est GFR (CKD-EPI)AfAm 88.87 Est GFR (CKD-EPI)NonAf 76.68 Random Glucose 119 H Calcium 9.0 Total Bilirubin 0.2 AST 22 ALT 25 Alkaline Phosphatase 94 Total Protein 7.7 Albumin 3.5 POC Urine HCG, Qual Negative Syphilis Serology COVID-19 ([facility]) 10/03/19 10/03/19 12:25 12:30 WBC RBC Hgb Hct MCV MCH MCHC RDW Plt Count MPV Sodium Potassium Chloride Carbon Dioxide Anion Gap BUN Creatinine Est GFR (CKD-EPI)AfAm Est GFR (CKD-EPI)NonAf Random Glucose Calcium Total Bilirubin AST ALT Alkaline Phosphatase Total Protein Albumin POC Urine HCG, Qual Syphilis Serology Non-reactive COVID-19 ([facility]) Not detected labs noted aaox3 ambulating no acute distress Assessment: 10/04/19 12:13 withdrawals Plan: continue detox aveeno soap ordered
[2019-10-04] MEDS ORDERED: COLLOIDAL OATMEAL 1 BAR EACH TP ONE (12:15)
[2019-10-04] MEDS: hydrOXYzine PAMOATE 25 MG CAPSULE (FP) PO PRN ×2 (13:17→19:18)
[2019-10-04] MEDS ORDERED: cloNIDine HCL 0.1 MG TABLET PO ONE (14:22)
[2019-10-04] MEDS: DOCUSATE SODIUM 100 MG CAPSULE (FP) PO SCH ×2 (14:50→22:47)
[2019-10-04] MEDS: ARTIFICIAL TEARS (POLYVINYL ALCOHOL) OPTH DROPS OU SCH ×2 (14:51→22:47)
[2019-10-04] MEDS: THIAMINE HCL 100 MG TABLET (FP) PO SCH (22:47)
[2019-10-04] MEDS: cloNIDine HCL 0.1 MG TABLET PO SCH (22:47)
[2019-10-04] MEDS: MELATONIN 5 MG TABLETS PO SCH (22:47)
[2019-10-05] MEDS ORDERED: METHADONE HCL 10 MG TABLET ONE (04:03)
[2019-10-05] MEDS ORDERED: METHADONE HCL 40 MG DISPERSABLE TABLET ONE (04:03)
[2019-10-05] MEDS ORDERED: METHADONE HCL 40 MG DISPERSABLE TABLET PO SCH (06:00)
[2019-10-05] MEDS: ARTIFICIAL TEARS (POLYVINYL ALCOHOL) OPTH DROPS OU SCH ×3 (06:08→22:58)
[2019-10-05] MEDS: DOCUSATE SODIUM 100 MG CAPSULE (FP) PO SCH ×3 (06:08→22:15)
[2019-10-05] MEDS: diazePAM 5 MG TABLET PO SCH ×2 (06:09→18:28)
[2019-10-05] MEDS: METHADONE 80 MG, METHADONE 30 MG PO SCH (06:09)
[2019-10-05] MEDS: cloNIDine HCL 0.1 MG TABLET PO SCH ×2 (11:01→22:15)
[2019-10-05] MEDS: PRENATAL VITAMINS W/ FOLIC ACID TABLET (FP) PO SCH (11:02)
[2019-10-05] MEDS: NICOTINE 21 MG/24 HOURS TOPICAL PATCH TD SCH (11:02)
[2019-10-05] MEDS: METHOCARBAMOL 500 MG TABLET PO PRN ×2 (11:02→18:28)
--- NOTE | 2019-10-05 11:25 | PN ---
S CIWA - CIWA Score Nausea/Vomitin-No Nausea/No Vomiting Muscle Tremors: None Anxiety: 1-Mildly Anxious Agitation: 1-Slight > Activity Paroxysmal Sweats: No Perspiration Orientation: 0-Oriented Tacttile Disturbances: 0-None Auditory Disturbances: 0-None Visual Disturbances: 0-None Headache: 0-None Present CIWA-Ar Total Score: 2 BHS Progress Note (SOAP) Subjective: feeling better Objective: 10/05/19 14:00 Vital Signs Temperature 97.1 F L 10/05/19 08:38 Pulse Rate 66 10/05/19 08:38 Respiratory Rate 20 10/05/19 08:38 Blood Pressure 153/88 10/05/19 08:38 O2 Sat by Pulse Oximetry (%) 99 10/05/19 08:38 Laboratory Tests 10/03/19 10/03/19 10/03/19 11:45 12:25 12:25 WBC 7.2 RBC 4.56 Hgb 11.0 Hct 34.0 MCV 74.6 L MCH 24.2 L MCHC 32.4 RDW 19.0 H Plt Count 236 D MPV 10.2 D Sodium 138 Potassium 4.4 Chloride 104 Carbon Dioxide 24 Anion Gap 10 BUN 10.4 Creatinine 0.9 Est GFR (CKD-EPI)AfAm 88.87 Est GFR (CKD-EPI)NonAf 76.68 Random Glucose 119 H Calcium 9.0 Total Bilirubin 0.2 AST 22 ALT 25 Alkaline Phosphatase 94 Total Protein 7.7 Albumin 3.5 POC Urine HCG, Qual Negative Syphilis Serology COVID-19 ([facility]) 10/03/19 10/03/19 12:25 12:30 WBC RBC Hgb Hct MCV MCH MCHC RDW Plt Count MPV Sodium Potassium Chloride Carbon Dioxide Anion Gap BUN Creatinine Est GFR (CKD-EPI)AfAm Est GFR (CKD-EPI)NonAf Random Glucose Calcium Total Bilirubin AST ALT Alkaline Phosphatase Total Protein Albumin POC Urine HCG, Qual Syphilis Serology Non-reactive COVID-19 ([facility]) Not detected aaox3 ambulating no acute distress Assessment: 10/05/19 14:01 mild to no s/s of withdrawals noted Plan: complete detox d/c in am
[2019-10-05] MEDS: hydrOXYzine PAMOATE 25 MG CAPSULE (FP) PO PRN (14:44)
[2019-10-05] MEDS: diazePAM 5 MG TABLET PO PRN (22:14)
[2019-10-05] MEDS: MELATONIN 5 MG TABLETS PO SCH (22:15)
[2019-10-05] MEDS: THIAMINE HCL 100 MG TABLET (FP) PO SCH (22:15)
[2019-10-06] MEDS: hydrOXYzine PAMOATE 25 MG CAPSULE (FP) PO PRN (01:41)
[2019-10-06] MEDS ORDERED: METHADONE HCL 10 MG TABLET ONE (05:24)
[2019-10-06] MEDS ORDERED: METHADONE HCL 40 MG DISPERSABLE TABLET ONE (05:25)
[2019-10-06] MEDS ORDERED: diazePAM 5 MG TABLET PO ONE (06:00)
[2019-10-06] MEDS: METHADONE 80 MG, METHADONE 30 MG PO SCH (06:16)
[2019-10-06] MEDS: DOCUSATE SODIUM 100 MG CAPSULE (FP) PO SCH (06:17)
[2019-10-06 06:20] VITALS: BP 125/88; PULSE 62; TEMP 97.1
[2019-10-06] MEDS: ARTIFICIAL TEARS (POLYVINYL ALCOHOL) OPTH DROPS OU SCH (07:24)
--- NOTE | 2019-10-06 10:33 | DS ---
[facility] Detox Discharge Summary Admission Date: 10/03/19 Discharge Date: 10/06/19 - History Present History: Cocaine Dependence, Opioid Dependence Additional Comments: Alert and oriented x3, in no acute respiratory distress. Ambulating in hallway without assistance. Skin warm to touch with multiple track pascual, no signs of infections noted. Completed detox protocol, stable for discharge today. Pertinent Past History: History of HTN, untreated Hep C, skin abscess, lung abscess, heroin, crack/cocaine ,Xanax and nicotine use disorder. - Physical Exam Results Vital Signs: Vital Signs Temperature 97.1 F L 10/06/19 05:58 Pulse Rate 62 10/06/19 05:58 Respiratory Rate 18 10/06/19 05:58 Blood Pressure 125/88 10/06/19 05:58 O2 Sat by Pulse Oximetry (%) 97 10/06/19 05:58 Vital Signs 10/06/19 05:58 Temperature 97.1 F L Pulse Rate 62 Respiratory 18 Rate Blood Pressure 125/88 O2 Sat by Pulse 97 Oximetry (%) Laboratory Last Values WBC 7.2 K/mm3 (4.0-10.0) 10/03/19 12:25 RBC 4.56 M/mm3 (3.60-5.2) 10/03/19 12:25 Hgb 11.0 GM/dL (10.7-15.3) 10/03/19 12:25 Hct 34.0 % (32.4-45.2) 10/03/19 12:25 MCV 74.6 fl (80-96) L 10/03/19 12:25 MCH 24.2 pg (25.7-33.7) L 10/03/19 12:25 MCHC 32.4 g/dl (32.0-36.0) 10/03/19 12:25 RDW 19.0 % (11.6-15.6) H 10/03/19 12:25 Plt Count 236 K/MM3 (134-434) D 10/03/19 12:25 MPV 10.2 fl (7.5-11.1) D 10/03/19 12:25 Sodium 138 mmol/L (136-145) 10/03/19 12:25 Potassium 4.4 mmol/L (3.5-5.1) 10/03/19 12:25 Chloride 104 mmol/L (98-107) 10/03/19 12:25 Carbon Dioxide 24 mmol/L (21-32) 10/03/19 12:25 Anion Gap 10 MMOL/L (8-16) 10/03/19 12:25 BUN 10.4 mg/dL (7-18) 10/03/19 12:25 Creatinine 0.9 mg/dL (0.55-1.3) 10/03/19 12:25 Est GFR (CKD-EPI)AfAm 88.87 10/03/19 12:25 Est GFR (CKD-EPI)NonAf 76.68 10/03/19 12:25 Random Glucose 119 mg/dL (74-106) H 10/03/19 12:25 Calcium 9.0 mg/dL (8.5-10.1) 10/03/19 12:25 Total Bilirubin 0.2 mg/dL (0.2-1) 10/03/19 12:25 AST 22 U/L (15-37) 10/03/19 12:25 ALT 25 U/L (13-61) 10/03/19 12:25 Alkaline Phosphatase 94 U/L (45-117) 10/03/19 12:25 Total Protein 7.7 g/dl (6.4-8.2) 10/03/19 12:25 Albumin 3.5 g/dl (3.4-5.0) 10/03/19 12:25 POC Urine HCG, Qual Negative 10/03/19 11:45 Syphilis Serology Non-reactive (NONREACTIVE) 10/03/19 12:25 COVID-19 ([facility]) Not detected (Not Detected) 10/03/19 12:30 Labs noted. Pertinent Admission Physical Exam Findings: Withdrawal symptoms. - Treatment Hospital Course: Detox Protocol Followed, Detoxed Safely, Responded well, Discharged Condition Good - Medication Discharge Medications: Ambulatory Orders Methadone [Dolophine -] 110 mg PO DAILY 10/03/19 - Diagnosis (1) Benzodiazepine dependence Current Visit: Yes Status: Chronic (2) Cocaine dependence, uncomplicated Current Visit: Yes Status: Acute (3) HTN (hypertension) Current Visit: Yes Status: Chronic Qualifiers: Hypertension type: essential hypertension Qualified Code(s): I10 - Essential (primary) hypertension (4) Methadone maintenance therapy patient Current Visit: Yes Status: Chronic (5) Opioid dependence with withdrawal Current Visit: No Status: Acute (6) Hepatitis C Current Visit: No Status: Chronic Qualifiers: - AMA Did Patient Leave Against Medical Advice: No
== END 2019-10-06 09:06 | disposition home or self-care (01) | DRG 773 ==
LOC: YASAS 10:07 → Y6N 12:42
PROVIDERS: ADMIT Allergy & Immunology; ATTEND Allergy & Immunology
PROC: HZ2ZZZZ Detoxification Services for Substance Abuse Treatment (ICD-10-PCS; principal; 2019-10-03)
DX: F13.230 Sedative, hypnotic or anxiolytic dependence with withdrawal, uncomplicated (principal); F11.20 Opioid dependence, uncomplicated; F14.20 Cocaine dependence, uncomplicated; F17.210 Nicotine dependence, cigarettes, uncomplicated; I10 Essential (primary) hypertension; B18.2 Chronic viral hepatitis C; Z88.8 Allergy status to other drugs, medicaments and biological substances; Z91.14 Patient's other noncompliance with medication regimen
CPT/HCPCS: 36415; 71045-TC-FY; 80053; 81025; 85027; 86780; 93005; 93010; J0735; U0003

== ENCOUNTER 2020-04-02 09:59 | Inpatient (IN) | payer OTHER ==
[2020-04-02 11:18] VITALS: BMI 28.1
[2020-04-02] MEDS ORDERED: BISMUTH SUBSALICYLATE 262 MG/15 ML BTL PO PRN (11:34)
[2020-04-02] MEDS ORDERED: MAGNESIUM HYDROX 2400MG/30ML ORAL SUSPENSION 30 ML CUP PO PRN (11:44)
[2020-04-02] MEDS ORDERED: IBUPROFEN 400 MG TABLET (FP) PO PRN (11:44)
[2020-04-02] MEDS ORDERED: METHOCARBAMOL 500 MG TABLET PO PRN (11:44)
[2020-04-02] MEDS ORDERED: ACETAMINOPHEN 325 MG TABLET (FP) PO PRN ×2 (11:44)
[2020-04-02] MEDS ORDERED: ONDANSETRON *ODT* 4 MG TABLET SL PRN (11:44)
[2020-04-02] MEDS ORDERED: MAG HYDROX/AL HYDROX/SIMETH 30 ML UNIT-DOSE CUP PO PRN (11:44)
[2020-04-02] MEDS ORDERED: MENTHOL/PHENOL 1 EACH UD MM PRN (11:44)
[2020-04-02] MEDS ORDERED: NICOTINE POLACRILEX 2 MG GUM BUC PRN (11:44)
[2020-04-02] MEDS ORDERED: MAGNESIUM CITRATE 300 ML BOTTLE PO PRN (11:44)
[2020-04-02] MEDS ORDERED: COLLOIDAL OATMEAL 1 BAR EACH TP PRN (11:48)
[2020-04-02] MEDS: diazePAM 5 MG TABLET PO SCH ×3 (12:51→22:51)
[2020-04-02] MEDS: NICOTINE 21 MG/24 HOURS TOPICAL PATCH TD SCH (12:53)
[2020-04-02] MEDS: PRENATAL VITAMINS W/ FOLIC ACID TABLET (FP) PO SCH (12:53)
[2020-04-02 14:19] LABS: HEMATOCRIT 30.9 % (32.4-45.2); HEMOGLOBIN 10.3 GM/dL (10.7-15.3); MCH 23.9 pg (25.7-33.7); MCHC 33.1 g/dl (32.0-36.0); MEAN CELL VOLUME 72.2 fl (80-96); MEAN PLT VOLUME 10.6 fl (7.5-11.1); PLATELET COUNT 149 K/MM3 (134-434); RBC 4.28 M/mm3 (3.60-5.2); RDW 17.5 % (11.6-15.6); WHITE BLOOD COUNT 8.7 K/mm3 (4.0-10.0)
[2020-04-02 14:21] LABS: POTASSIUM 3.9 mmol/L (3.5-5.1)
[2020-04-02 14:24] LABS: ALBUMIN 3.3 g/dl (3.4-5.0); BLOOD UREA NITROGEN 21.6 mg/dL (7-18); CALCIUM 8.6 mg/dL (8.5-10.1)
[2020-04-02 14:29] LABS: BILIRUBIN,TOTAL 0.8 mg/dL (0.2-1); TOT PROT 7.5 g/dl (6.4-8.2)
[2020-04-02] MEDS: hydrOXYzine PAMOATE 25 MG CAPSULE (FP) PO SCH ×3 (14:58→22:51)
[2020-04-02] MEDS ORDERED: MELATONIN 5 MG TABLETS PO SCH (22:00)
[2020-04-02] MEDS: THIAMINE HCL 100 MG TABLET (FP) PO SCH (22:51)
[2020-04-03] MEDS: hydrOXYzine PAMOATE 25 MG CAPSULE (FP) PO SCH ×3 (06:43→12:59)
[2020-04-03] MEDS: METHADONE HCL 40 MG DISPERSABLE TABLET PO SCH (06:43)
[2020-04-03] MEDS: diazePAM 5 MG TABLET PO SCH ×4 (06:43→22:33)
[2020-04-03] MEDS ORDERED: MASKS NR ONE (10:26)
[2020-04-03] MEDS: NICOTINE 21 MG/24 HOURS TOPICAL PATCH TD SCH (10:27)
[2020-04-03] MEDS: PRENATAL VITAMINS W/ FOLIC ACID TABLET (FP) PO SCH (10:27)
[2020-04-03] MEDS: ARTIFICIAL TEARS (POLYVINYL ALCOHOL) OPTH DROPS OU PRN ×2 (10:34→12:59)
[2020-04-03] MEDS ORDERED: hydrOXYzine PAMOATE 25 MG CAPSULE (FP) PO PRN (13:34)
[2020-04-03] MEDS: QUEtiapine FUMARATE 50 MG TABLET PO SCH (22:33)
[2020-04-03] MEDS: THIAMINE HCL 100 MG TABLET (FP) PO SCH (22:33)
[2020-04-04] MEDS: METHADONE HCL 40 MG DISPERSABLE TABLET PO SCH (07:00)
[2020-04-04] MEDS: diazePAM 5 MG TABLET PO SCH ×3 (07:00→23:01)
[2020-04-04] MEDS: PRENATAL VITAMINS W/ FOLIC ACID TABLET (FP) PO SCH (10:23)
[2020-04-04] MEDS: NICOTINE 21 MG/24 HOURS TOPICAL PATCH TD SCH (10:23)
[2020-04-04] MEDS: ARTIFICIAL TEARS (POLYVINYL ALCOHOL) OPTH DROPS OU PRN (10:39)
[2020-04-04] MEDS: LIDOCAINE 5% TOPICAL PATCH TP SCH (13:39)
[2020-04-04] MEDS: diazePAM 5 MG TABLET PO PRN (17:38)
[2020-04-04] MEDS: LIDOCAINE PATCH REMOVAL MC SCH (23:02)
[2020-04-04] MEDS: QUEtiapine FUMARATE 50 MG TABLET PO SCH (23:02)
[2020-04-04] MEDS: THIAMINE HCL 100 MG TABLET (FP) PO SCH (23:02)
[2020-04-05] MEDS: diazePAM 5 MG TABLET PO SCH ×2 (06:43→17:45)
[2020-04-05] MEDS: METHADONE HCL 40 MG DISPERSABLE TABLET PO SCH (06:43)
[2020-04-05] MEDS: diazePAM 5 MG TABLET PO PRN (09:08)
[2020-04-05] MEDS: PRENATAL VITAMINS W/ FOLIC ACID TABLET (FP) PO SCH (11:01)
[2020-04-05] MEDS: NICOTINE 21 MG/24 HOURS TOPICAL PATCH TD SCH (11:01)
[2020-04-05] MEDS: LIDOCAINE 5% TOPICAL PATCH TP SCH (11:01)
[2020-04-05] MEDS: LIDOCAINE PATCH REMOVAL MC SCH (21:54)
[2020-04-05] MEDS: THIAMINE HCL 100 MG TABLET (FP) PO SCH (21:54)
[2020-04-05] MEDS: QUEtiapine FUMARATE 50 MG TABLET PO SCH (21:54)
[2020-04-06] MEDS ORDERED: diazePAM 5 MG TABLET PO ONE (06:00)
[2020-04-06] MEDS: METHADONE HCL 40 MG DISPERSABLE TABLET PO SCH (06:18)
[2020-04-06] MEDS: PRENATAL VITAMINS W/ FOLIC ACID TABLET (FP) PO SCH (11:30)
[2020-04-06] MEDS: LIDOCAINE 5% TOPICAL PATCH TP SCH (11:30)
[2020-04-06] MEDS: NICOTINE 21 MG/24 HOURS TOPICAL PATCH TD SCH (11:31)
[2020-04-06] MEDS: amLODIPine BESYLATE 5 MG TABLET (FP) PO SCH (18:15)
[2020-04-06] MEDS: QUEtiapine FUMARATE 50 MG TABLET PO SCH (21:37)
[2020-04-06] MEDS: LIDOCAINE PATCH REMOVAL MC SCH (21:37)
[2020-04-06] MEDS: THIAMINE HCL 100 MG TABLET (FP) PO SCH (21:37)
[2020-04-07] MEDS: METHADONE HCL 40 MG DISPERSABLE TABLET PO SCH (06:04)
[2020-04-07 09:16] VITALS: BP 130/87; PULSE 83; TEMP 96.9
[2020-04-07] MEDS: LIDOCAINE 5% TOPICAL PATCH TP SCH (09:33)
[2020-04-07] MEDS: amLODIPine BESYLATE 5 MG TABLET (FP) PO SCH (09:33)
[2020-04-07] MEDS: PRENATAL VITAMINS W/ FOLIC ACID TABLET (FP) PO SCH (09:33)
[2020-04-07] MEDS: NICOTINE 21 MG/24 HOURS TOPICAL PATCH TD SCH (09:33)
[2020-04-07 12:03] LABS: POTASSIUM 4.7 mmol/L (3.5-5.1)
[2020-04-07 12:05] LABS: BLOOD UREA NITROGEN 14.4 mg/dL (7-18)
[2020-04-07 12:08] LABS: CREATININE 0.8 mg/dL (0.55-1.3)
[2020-04-07 12:10] LABS: TOT PROT 7.5 g/dl (6.4-8.2)
[2020-04-07 12:15] LABS: BILIRUBIN,TOTAL 0.2 mg/dL (0.2-1)
== END 2020-04-07 11:53 | disposition home or self-care (01) | DRG 773 ==
LOC: YASAS 09:59 → Y3N 11:41
PROVIDERS: ADMIT Allergy & Immunology; ATTEND Allergy & Immunology
PROC: HZ2ZZZZ Detoxification Services for Substance Abuse Treatment (ICD-10-PCS; principal; 2020-04-02)
DX: F11.23 Opioid dependence with withdrawal (principal); F10.230 Alcohol dependence with withdrawal, uncomplicated; F14.20 Cocaine dependence, uncomplicated; F13.20 Sedative, hypnotic or anxiolytic dependence, uncomplicated; F12.20 Cannabis dependence, uncomplicated; F17.210 Nicotine dependence, cigarettes, uncomplicated; F19.280 Other psychoactive substance dependence with psychoactive substance-induced anxiety disorder; F19.282 Other psychoactive substance dependence with psychoactive substance-induced sleep disorder; F19.24 Other psychoactive substance dependence with psychoactive substance-induced mood disorder; F31.9 Bipolar disorder, unspecified; F39 Unspecified mood [affective] disorder; F60.3 Borderline personality disorder; U07.1 COVID-19; B18.2 Chronic viral hepatitis C; I10 Essential (primary) hypertension; G47.00 Insomnia, unspecified; N39.0 Urinary tract infection, site not specified; Z90.49 Acquired absence of other specified parts of digestive tract; Z88.8 Allergy status to other drugs, medicaments and biological substances
CPT/HCPCS: 36415; 80053; 82607; 82728; 82746; 83540; 83550; 85027; 86780; C9803; U0003